=== PATIENT | male | born 1945 | race Caucasian/White ===

== ENCOUNTER 2016-03-22 00:44 | Inpatient (IN) | payer OTHER ==
--- NOTE | 2016-03-22 01:21 | PDOC ---
History of Present Illness - General Chief Complaint: Nausea/Vomiting Stated Complaint: NAUSEA/VOMITING History Source: Patient Exam Limitations: No Limitations - History of Present Illness Initial Comments: 03/22/16 03:32 see a couple of days ago and given zofran for nausea. Used the last one tonight. Now vomiting again. Lots of diarrhea too. Timing/Duration: 1 week Severity: moderate Modifying Factors: improves with: other (zofran makes it better.) Associated Symptoms: denies: denies symptoms Past History - Past Medical History Allergies/Adverse Reactions: Allergies Allergy/AdvReac Type Severity Reaction Status Date / Time No Known Allergies Allergy Verified 12/08/15 11:21 Home Medications: Ambulatory Orders Metformin HCl 500 mg PO BID 03/18/16 Oxycodone HCl/Acetaminophen [Percocet 5-325 mg Tablet] 2 tab PO Q6H PRN MDD 6 Pantoprazole Sodium [Protonix -] 40 mg PO DAILY #10 tablet.ec 03/19/16 Ondansetron [Zofran Odt -] 4 mg SL PRN PRN 03/22/16 Cardiac Disorders: Yes (AFIB) Diabetes: Yes HTN: Yes Hypercholesterolemia: Yes - Psycho/Social/Smoking Cessation Hx Anxiety: No Suicidal Ideation: No Smoking History: Never smoked Have you smoked in the past 12 months: No If you are a former smoker, when did you quit?: 30 yrs ago Hx Alcohol Use: No Drug/Substance Use Hx: No Substance Use Type: None Review of Systems - Review of Systems Able to Perform ROS?: Yes Is the patient limited Turkmen proficient: No Constitutional: Yes: See HPI HEENTM: No: Symptoms Reported Respiratory: No: Symptoms reported Cardiac (ROS): No: Symptoms Reported ABD/GI: Yes: See HPI : No: Symptoms Reported Musculoskeletal: No: Symptoms Reported Integumentary: No: Symptoms Reported Neurological: No: Symptoms reported All Other Systems: Reviewed and Negative *Physical Exam - Vital Signs Last Vital Signs Temp Pulse Resp BP Pulse Ox 98.1 F 50 L 16 186/84 100 03/22/16 00:49 03/22/16 00:49 03/22/16 00:49 03/22/16 00:49 03/22/16 00:49 - Physical Exam Comments: 03/22/16 03:34 actively vomiting..... dry heaves. General Appearance: Yes: Nourished. No: Apparent Distress HEENT: positive: Normal ENT Inspection Neck: positive: Supple, Other (no jvd) Respiratory/Chest: positive: Lungs Clear, Normal Breath Sounds Cardiovascular: positive: Regular Rhythm, Regular Rate, Bradycardia Gastrointestinal/Abdominal: positive: Normal Bowel Sounds, Flat, Soft. negative : Tender, Organomegaly, Pulsatile Mass, Increased Bowel Sounds, Decreased BS Rectal Exam: positive: deferred Lymphatic: negative: Adenopathy, Tenderness Musculoskeletal: positive: Normal Inspection. negative: CVA Tenderness Extremity: positive: Normal Capillary Refill, Normal Inspection, Pedal Edema, Other (mid calf pedal edema bilaterally) Integumentary: positive: Normal Color, Dry, Warm Neurologic: positive: horser up II-XII NML intact, Fully Oriented, Alert, Normal Mood/ Affect ED Treatment Course - LABORATORY CBC & Chemistry Diagram: 03/22/16 01:47 03/22/16 01:47 Medical Decision Making - Medical Decision Making 03/22/16 04:06 ekg shows a junctional bradycardia without any signs of ischemia, CXR shows atelectasis or possible RLL Infiltrate, but patient has no cough, Abdominal flat and upright films show no ileus or obstruction. 03/22/16 04:07 Patient remains nauseated and bradycardic. *DC/Admit/Observation/Transfer Diagnosis at time of Disposition: Gastroenteritis, Bradycardia, Acute gastroenteritis, History of atrial fibrillation, History of CHF (congestive heart failure), On warfarin at home - Discharge Dispostion Condition at time of disposition: Stable Admit: Yes - Referrals Referrals: Emigdio Loco MD [Primary Care Provider] -
[2016-03-22] MEDS ORDERED: SODIUM CHLORIDE 1,000 ML IV STA (01:31)
[2016-03-22] MEDS ORDERED: ONDANSETRON 4 MG/2 ML VIAL ONE ×3 (01:38→06:12)
[2016-03-22] MEDS: ONDANSETRON 4 MG/2 ML VIAL IVPUSH ONE ×2 (01:46→06:25)
[2016-03-22 02:29] LABS: WHITE BLOOD COUNT 11.9 K/mm3 (4.0-10.0)
[2016-03-22 02:30] LABS: MCH 28.9 pg (25.7-33.7); MCHC 33.2 g/dl (32.0-35.9); MEAN CELL VOLUME 86.9 fl (80-96); MEAN PLT VOLUME 9.6 fl (7.5-11.1); NEUTROPHILS 81.5 % (42.8-82.8); PLATELET COUNT 296 K/MM3 (134-434); RDW 15.4 % (11.9-15.9)
[2016-03-22 02:31] LABS: BASOPHIL 1.4 % (0-2.0)
[2016-03-22] MEDS ORDERED: METOCLOPRAMIDE HCL INJECTION 10 MG/2 ML VIAL IVPUSH ONE (02:36)
[2016-03-22 02:38] LABS: INR 1.98 (0.82-1.09); PROTHROMBIN TIME (PATIENT) 22.1 SEC (9.98-11.88)
[2016-03-22 02:48] LABS: ALBUMIN 4.5 g/dl (3.4-5.0); BILIRUBIN,TOTAL 0.7 mg/dL (0.2-1.0); CALCIUM 8.7 mg/dL (8.5-10.1); CREATININE 1.6 mg/dL (0.7-1.3); TOT PROT 7.6 g/dl (6.4-8.2)
[2016-03-22 02:50] LABS: TROPONIN I 0.1 ng/ml (0.00-0.05)
[2016-03-22] MEDS ORDERED: ONDANSETRON 4 MG/2 ML VIAL IVPUSH ONE (03:45)
[2016-03-22] MEDS ORDERED: SODIUM CHLORIDE 1,000 ML IV SCH (04:45)
[2016-03-22] MEDS ORDERED: WARFARIN NA 5 MG TABLET (UD) PO SCH (05:00)
[2016-03-22] MEDS: KCL 10 MEQ IVPB 100 ML IVPB SCH ×3 (05:40→08:17)
[2016-03-22] MEDS ORDERED: INSULIN SLIDING SCALE (NOVOLOG) 1 VIAL SQ SCH (06:00)
[2016-03-22 06:27] VITALS: BMI 36.8
--- NOTE | 2016-03-22 07:12 | HP ---
CHIEF COMPLAINT:nausea and vomiting PCP: Beronica Hood Maker: none as per patient HISTORY OF PRESENT ILLNESS: patient is a 70 y/o male with a past medical history of NIDDM, HTN, Afib (coumadin), and HLD. Patient reports nausea, vomiting, and diarrhea since 03/18/2016. Patient was evaluated in this emergency department on 03/19/2016 discharge with a diagnosis of viral gastroenteritis. Patient reports with nausea and vomiting is not resolved. patient denies any abdominal pain. patient reports the nausea and vomiting recent within the past 24 hours patient reports 1 episode of dizziness that resolved spontaneously. However, he denies any loss of consciousness. as a result he sought evaluation in the emergency department. 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 Smoking:none Alcohol:none Drugs: none Allergies No Known Allergies Allergy (Verified 12/08/15 11:21) HOME MEDICATIONS: Medication Instructions Recorded Metformin HCl 500 mg PO BID 03/18/16 Oxycodone HCl/Acetaminophen 2 tab PO Q6H PRN MDD 6 03/18/16 [Percocet 5-325 mg Tablet] Pantoprazole Sodium [Protonix -] 40 mg PO DAILY #10 tablet.ec 03/19/16 Ondansetron [Zofran Odt -] 4 mg SL PRN PRN 03/22/16 REVIEW OF SYSTEMS CONSTITUTIONAL: Absent: fever, chills, diaphoresis, generalized weakness, malaise, loss of appetite, weight change HEENT: Absent: rhinorrhea, nasal congestion, throat pain, throat swelling, difficulty swallowing, mouth swelling, ear pain, eye pain, visual changes CARDIOVASCULAR: Absent: chest pain, syncope, palpitations, irregular heart rate, lightheadedness , peripheral edema RESPIRATORY: Absent: cough, shortness of breath, dyspnea with exertion, orthopnea, wheezing, stridor, hemoptysis GASTROINTESTINAL: Present: nausea, vomiting, diarrhea Absent: abdominal pain, abdominal distension, , constipation, melena, hematochezia GENITOURINARY: Absent: dysuria, frequency, urgency, hesitancy, hematuria, flank pain, genital pain MUSCULOSKELETAL: Absent: myalgia, arthralgia, joint swelling, back pain, neck pain SKIN: Absent: rash, itching, pallor HEMATOLOGIC/IMMUNOLOGIC: Absent: easy bleeding, easy bruising, lymphadenopathy, frequent infections ENDOCRINE: Absent: unexplained weight gain, unexplained weight loss, heat intolerance, cold intolerance NEUROLOGIC: Absent: headache, focal weakness or paresthesias, dizziness, unsteady gait, seizure, mental status changes, bladder or bowel incontinence PSYCHIATRIC: Absent: anxiety, depression, suicidal or homicidal ideation, hallucinations. PHYSICAL EXAMINATION Vital Signs - 24 hr 03/22/16 06:27 Temperature 98.2 F Pulse Rate 72 Respiratory 19 Rate Blood Pressure 166/66 GENERAL: Awake, alert, and fully oriented, in no acute distress. HEAD: Normal with no signs of trauma. EYES: Pupils equal, round and reactive to light, extraocular movements intact, sclera anicteric, conjunctiva clear. No lid lag. EARS, NOSE, THROAT: Ears normal, nares patent, oropharynx clear without exudates. dry mucous membranes. NECK: Normal range of motion, supple without lymphadenopathy, JVD, or masses. LUNGS: Breath sounds equal, clear to auscultation bilaterally. No wheezes, and no crackles. No accessory muscle use. HEART: Regular rate and rhythm, normal S1 and S2 without murmur, rub or gallop. ABDOMEN: Soft, obese nontender, not distended, normoactive bowel sounds, no guarding, no rebound, no masses. No hepatomegaly or splenomegaly. MUSCULOSKELETAL: Normal range of motion at all joints. No bony deformities or tenderness. No CVA tenderness. UPPER EXTREMITIES: 2+ pulses, warm, well-perfused. No cyanosis. No clubbing. Cap refill <2 seconds. No peripheral edema. LOWER EXTREMITIES: 2+ pulses, warm, well-perfused. No calf tenderness. 1 pedal edema, with venous stasis changes (chronic as per patient) NEUROLOGICAL: Cranial nerves II-XII intact. Normal speech. Normal gait. PSYCHIATRIC: Cooperative. Good eye contact. Appropriate mood and affect. SKIN: Warm, dry, normal turgor, no rashes or lesions noted. Laboratory Results - last 24 hr 03/22/16 03/22/16 03/22/16 05:30 05:44 05:50 POC Glucometer 123 Lactic Acid Cancelled Troponin I 0.10 H Acetone, Qual 03/22/16 05:50 POC Glucometer Lactic Acid Troponin I Acetone, Qual Negative ASSESSMENT/PLAN: 1) Card: - pmh of afib, ekg reviewed slow hr conducted afib noted, elevated troponin x2, transcutaneous pacemaker pads placed on patient, pt reports he does not take digoxin. pt is asymptomatic, case discussed with Dr Allen (cardiology) will evaluate patient today - pt on coumadin, continue home 5mg tonight - elevated BNP, unknown baseline, pending ECHO - continue valsartan - continuous cardiac monitoring 2) renal - ROSARIO, likely secondary to hypovolemia, elevated anion gap, gentle IV hydration - repeat bmp in AM 3) endo - stop metformin, due to ROSARIO, fingersticks ACHS with regular insulin coverage - pending TSH f/e/n low sodium diabetic diet ppx coumadin protonix oob dispo: requires inpatient telemetry Visit type - Emergency Visit Emergency Visit: Yes ED Registration Date: 03/22/16 Care time: The patient presented to the Emergency Department on the above date and was hospitalized for further evaluation of their emergent condition. - New Patient This patient is new to me today: Yes Date on this admission: 03/22/16 - Critical Care Critical Care patient: Yes Total Critical Care Time (in minutes): 45 Critical Care Statement: The care of this patient involved high complexity decision making to prevent further life threatening deterioration of the patient 's condition and/or to evalute & treat vital organ system(s) failure or risk of failure.
[2016-03-22 08:42] LABS: PH,URINE 5.5 (4.5-8); URINE APPEARANCE Cloudy; URINE BILIRUBIN Negative (NEGATIVE); URINE GLUCOSE (UA) Negative (NEGATIVE); URINE KETONE Negative (NEGATIVE); URINE LEUK ESTERASE Negative (NEGATIVE); URINE NITRITE Negative (NEGATIVE); URINE PROTEIN Negative (NEGATIVE); URINE UROBILINOGEN 0.2 E.U/dl (0.2-1.0)
[2016-03-22 08:44] LABS: URINE BLOOD TRACE (NEGATIVE); URINE COLOR YELLOW
[2016-03-22 08:45] LABS: URINE BACTERIA FEW /hpf (NEGATIVE); URINE MUCUS FEW; URINE RBC 0-3 /hpf (0-3); URINE WBC 0-3 (3-5)
[2016-03-22] MEDS ORDERED: SODIUM CHLORIDE 0.45%/POT 1,000 ML IV SCH (08:45)
[2016-03-22] MEDS: PANTOPRAZOLE SODIUM 40 MG/100 ML PRE-DOCKED IVPB SCH (09:23)
[2016-03-22] MEDS: VALSARTAN 160 MG TABLET (UD) PO SCH (09:23)
[2016-03-22] MEDS ORDERED: PANTOPRAZOLE SODIUM 40 MG in SODIUM CHLORIDE 100 ML IVPB SCH (10:00)
--- NOTE | 2016-03-22 10:12 | EKG ---
Test Reason : Blood Pressure : / mmHG Vent. Rate : 043 BPM Atrial Rate : 241 BPM P-R Int : 000 ms QRS Dur : 122 ms QT Int : 500 ms P-R-T Axes : 000 013 -30 degrees QTc Int : 422 ms ATRIAL FIBRILLATION WITH SLOW VENTRICULAR RESPONSE WITH A COMPETING JUNCTIONAL PACEMAKER RIGHT BUNDLE BRANCH BLOCK ABNORMAL ECG NO PREVIOUS ECGS AVAILABLE Confirmed by SONIA TEJEDA, JAY ([id number]) on 03/22/2016 10:11:18 AM Referred By: HUNTER/KHRIS Overread By: JAY SCOTT MD
[2016-03-22 11:12] LABS: CALCIUM 8.5 mg/dl (8.4-10.2); CREATININE 1.3 mg/dl (0.6-1.3)
[2016-03-22] MEDS ORDERED: POTASSIUM CHLORIDE TABS 20 MEQ TABLET.ER (FP) PO ONE (11:33)
[2016-03-22] MEDS: INSULIN SLIDING SCALE (NOVOLOG) 1 VIAL SQ SCH ×3 (12:55→22:27)
[2016-03-22] MEDS: ATORVASTATIN CA 40 MG TABLET (FP) PO SCH (22:26)
[2016-03-22] MEDS: WARFARIN NA 5 MG TABLET (UD) PO SCH (22:26)
[2016-03-23] MEDS: INSULIN SLIDING SCALE (NOVOLOG) 1 VIAL SQ SCH ×4 (06:29→22:25)
[2016-03-23 07:44] LABS: BASOPHIL 0.3 % (0-2.0); EOSINOPHIL 5.7 % (0-4.5); MCH 30.1 pg (25.7-33.7); MCHC 33.9 g/dl (32.0-35.9); MEAN CELL VOLUME 88.6 fl (80-96); MEAN PLT VOLUME 9.5 fl (7.5-11.1); NEUTROPHILS 64.6 % (42.8-82.8); PLATELET COUNT 234 K/MM3 (134-434); RDW 15.6 % (11.9-15.9); WHITE BLOOD COUNT 9.7 K/mm3 (4.0-10.0)
[2016-03-23 08:26] LABS: ANION GAP 5 (8-16); CALCIUM 7.9 mg/dL (8.5-10.1); CREATININE 1.3 mg/dL (0.7-1.3); GLUCOSE,RANDOM 92 mg/dL (74-106)
[2016-03-23] MEDS: VALSARTAN 160 MG TABLET (UD) PO SCH (10:02)
[2016-03-23] MEDS: PANTOPRAZOLE SODIUM 40 MG/100 ML PRE-DOCKED IVPB SCH (10:03)
[2016-03-23 10:23] LABS: INR 2.26 (0.82-1.09); PROTHROMBIN TIME (PATIENT) 25.3 SEC (9.98-11.88)
--- NOTE | 2016-03-23 12:34 | CONSULT ---
Cardiology Consult (text) - Consultation Consultation Note: cc: n/v/d hpi: 70 m hx afib, htn, hld, dm, here with n/v/d. Pt with GI sxs for past few days, now improved. No cp, sob, palp, dizzy, loc, pnd, orthopnea, le edema. Dizziness is mentioned in charts but pt denies any such episodes. He is active with daily activities, watching grandchild w/o limiting sxs. 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 Afib monitored with pmd. pmh: per hpi psh: nc social: no tob fam: no premature cad, scd ros: per hpi; no cough, nasal congestion, rash, cali, vision changes, gib, hematuria meds: Medication Instructions Recorded Metformin HCl 500 mg PO BID 03/18/16 Oxycodone HCl/Acetaminophen 2 tab PO Q6H PRN MDD 6 03/18/16 [Percocet 5-325 mg Tablet] Pantoprazole Sodium [Protonix -] 40 mg PO DAILY #10 tablet.ec 03/19/16 Ondansetron [Zofran Odt -] 4 mg SL PRN PRN 03/22/16 pe: Vital Signs Period Temp Pulse Resp BP Sys/Luke Pulse Ox Last 24 Hr 97.8 F-98.4 F 48-64 18-20 118-140/50-93 94-96 nad no jvd irreg, yonathan, s1s2 no mrg cta bl nl eff aaox3 no le e/c/c abd nt nd pos bs no jaundice diaphoresis pos dp pt, no carotid bruit Laboratory Last Values WBC 9.7 K/mm3 (4.0-10.0) 03/23/16 05:35 RBC 4.01 M/mm3 (4.00-5.60) 03/23/16 05:35 Hgb 12.1 GM/dL (11.7-16.9) D 03/23/16 05:35 Hct 35.5 % (35.4-49) 03/23/16 05:35 MCV 88.6 fl (80-96) 03/23/16 05:35 MCHC 33.9 g/dl (32.0-35.9) 03/23/16 05:35 RDW 15.6 % (11.9-15.9) 03/23/16 05:35 Plt Count 234 K/MM3 (134-434) D 03/23/16 05:35 MPV 9.5 fl (7.5-11.1) 03/23/16 05:35 Neutrophils % 64.6 % (42.8-82.8) D 03/23/16 05:35 Lymphocytes % 21.8 % (8-40) D 03/23/16 05:35 Monocytes % 7.6 % (3.8-10.2) 03/23/16 05:35 Eosinophils % 5.7 % (0-4.5) H D 03/23/16 05:35 Basophils % 0.3 % (0-2.0) 03/23/16 05:35 INR 2.26 (0.82-1.09) H 03/23/16 05:35 Sodium 138 mmol/L (136-145) 03/23/16 05:35 Potassium 3.5 mmol/L (3.5-5.1) 03/23/16 05:35 Chloride 106 mmol/L (98-107) 03/23/16 05:35 Carbon Dioxide 27 mmol/L (21-32) 03/23/16 05:35 Anion Gap 5 (8-16) L 03/23/16 05:35 BUN 25 mg/dL (7-18) H D 03/23/16 05:35 Creatinine 1.3 mg/dL (0.7-1.3) 03/23/16 05:35 Creat Clearance w eGFR 43.07 (>60) 03/22/16 01:47 POC Glucometer 105 UNITS (()) 03/23/16 11:03 Random Glucose 92 mg/dL (74-106) D 03/23/16 05:35 Lactic Acid 1.105 mmol/L (0.4-2.0) 03/22/16 07:29 Calcium 7.9 mg/dL (8.5-10.1) L 03/23/16 05:35 Magnesium 2.3 mg/dL (1.8-2.4) 03/22/16 07:29 Total Bilirubin 0.7 mg/dL (0.2-1.0) D 03/22/16 01:47 AST 45 U/L (15-37) H D 03/22/16 01:47 ALT 52 U/L (12-78) D 03/22/16 01:47 Alkaline Phosphatase 90 U/L (45-117) 03/22/16 01:47 Creatine Kinase 362 IU/L (39-308) H 03/22/16 01:47 Creatine Kinase Index 1.9 % (0.0-5.0) 03/22/16 01:47 CK-MB (CK-2) 6.853 ng/ml (0.5-3.6) H 03/22/16 01:47 CK-MB (CK-2) Rel Index Cancelled 03/22/16 01:47 Troponin I 0.01 ng/ml (0.00-0.05) 03/22/16 07:29 B-Natriuretic Peptide 1090.06 pg/ml (5-125) H 03/22/16 01:47 Total Protein 7.6 g/dl (6.4-8.2) 03/22/16 01:47 Albumin 4.5 g/dl (3.4-5.0) 03/22/16 01:47 TSH 2.25 uIU/ml (0.358-3.74) 03/22/16 Unknown Urine Color Yellow 03/22/16 08:14 Urine Appearance Cloudy 03/22/16 08:14 Urine pH 5.5 (4.5-8) 03/22/16 08:14 Ur Specific [place] 1.015 (1.005-1.025) 03/22/16 08:14 Urine Protein Negative (NEGATIVE) 03/22/16 08:14 Urine Glucose (UA) Negative (NEGATIVE) 03/22/16 08:14 Urine Ketones Negative (NEGATIVE) 03/22/16 08:14 Urine Blood Trace (NEGATIVE) H 03/22/16 08:14 Urine Nitrite Negative (NEGATIVE) 03/22/16 08:14 Urine Bilirubin Negative (NEGATIVE) 03/22/16 08:14 Urine Urobilinogen 0.2 e.u/dl (0.2-1.0) 03/22/16 08:14 Ur Leukocyte Esterase Negative (NEGATIVE) 03/22/16 08:14 Urine RBC 0-3 /hpf (0-3) 03/22/16 08:14 Urine WBC 0-3 (3-5) 03/22/16 08:14 Ur Epithelial Cells Moderate /HPF 03/22/16 08:14 Amorphous Phosphates Few /hpf (NONE SEEN) 03/22/16 08:14 Urine Bacteria Few /hpf (NEGATIVE) 03/22/16 08:14 Urine Mucus Few 03/22/16 08:14 Acetone, Qual Negative (NEGATIVE) 03/22/16 05:50 ecg 03/22/16: afib, vr 43, nl qtc tele: afib, vr 30s-50s, no sig pauses echo 03/2016: nl lv/rv, maninder, mild-mod mr, mod tr, rvsp 41 cxr: clear lungs a/p: 70 m hx afib, htn, hld, dm, here with n/v/d. n/v/d: -gastroenteritis type symptoms, resolved per pt -no signs acs, troponin w/o significant elevation -plans per pmd afib, bradycardia: -on coumadin -echo here unremarkable -not on any rate control meds at home but having afib with slow ventricular response here. no significant pauses on tele. does not seem to be causing pt any symptoms (dizziness is mentioned in charts but pt denies any such episodes) . will send for ett today to assess chronotropic response. if ett shows adequate rise in HR with excercise then ok for dc from cardiac pov. If HR does not increase adequately with exercise pt will likely need pacemaker. -tsh wnl -avoid meds that cause bradycardia htn: -cont diovan hld: -cont statin
[2016-03-23 12:53] LABS: ALBUMIN 3.6 g/dl (3.4-5.0); ALK PHOS 72 U/L (45-117); BILIRUBIN,TOTAL 0.5 mg/dL (0.2-1.0); MAGNESIUM 2.5 mg/dL (1.8-2.4); SGOT/AST 29 U/L (15-37); SGPT/ALT 39 U/L (12-78); TOT PROT 6.2 g/dl (6.4-8.2)
[2016-03-23 12:55] LABS: CO2 27 mmol/L (21-32)
--- NOTE | 2016-03-23 14:04 | TRE ---
Protocol Name : SARA Max Work Load (METS*10) : 57 Time In Exercise Phase : 00:03:58 Max. Systolic BP : 160 mmHg Max Diastolic BP : 91 mmHg Max Heart Rate : 101 BPM Max Predicted Heart Rate : 151 BPM Attending Physician : AGUSTIN PRUITT Reason For Termination : Dyspnea Reason for Test : BRADCARDIA Stress Protocol : SARA Rest HR : 54 BPM PeakEx METs : 5.7 METS Arrhythmias : No Arrhythmias Recovery ECG Response (OLD) : Chest Pain : none Diagnosis : Baseline EKG showed AF with slow VR . At peak exercise there were [address] depressions c/w ischemia. at suboptimal HR due to chronotropic incopmpetence. Reconfirmed by AGUSTIN PRUITT MD ([id number]) on 03/23/2016 2:09:53 PM Also confirmed by AGUSTIN PRUITT MD ([id number]) on 03/23/2016 2:10:31 PM Also confirmed by AGUSTIN PRUITT MD ([id number]) on 03/23/2016 2:40:33 PM
[2016-03-23] MEDS: WARFARIN NA 5 MG TABLET (UD) PO SCH (17:45)
--- NOTE | 2016-03-23 18:24 | PN ---
Progress Note (short form) - Note Progress Note: Subjective: The patient was seen and examined at the bedside, he has just come back from stress test and denies any complaints. Current Medications Generic Name Dose Route Start Last Admin Trade Name Erica PRN Reason Stop Dose Admin Atorvastatin Calcium 40 mg 03/22/16 22:00 03/22/16 22:26 Lipitor - PO 40 mg HS CHINYERE Administration Insulin Aspart 1 vial 03/22/16 11:00 03/23/16 16:05 Novolog Vial Sliding Scale - SQ Not Given ACHS CHINYERE Protocol Pantoprazole Sodium 40 mg 03/22/16 10:00 03/23/16 10:03 Protonix 40mg Ivpb (Pre-Docked) IVPB 40 mg DAILY CHINYERE Administration Valsartan 320 mg 03/22/16 10:00 03/23/16 10:02 Diovan - PO 320 mg DAILY CHINYERE Administration Warfarin Sodium 5 mg 03/22/16 18:00 03/23/16 17:45 Coumadin - PO 5 mg DAILY@1800 CHINYERE Administration Objective: Vital Signs Period Temp Pulse Resp BP Sys/Luke Pulse Ox Last 24 Hr 97.8 F-98.4 F 48-64 18-20 126-140/53-93 94 Physical Exam: General: NAD, A&Ox3 Lungs: CTA bilaterally Heart: Bradycardia, S1S2 Abd: Soft, non-tender, non-distended. Normoactive bowel sounds Ext: Warm, well-perfused. 2+ DP/PT bilaterally Neuro: CN 2-12 intact CBCD WBC 9.7 K/mm3 (4.0-10.0) 03/23/16 05:35 RBC 4.01 M/mm3 (4.00-5.60) 03/23/16 05:35 Hgb 12.1 GM/dL (11.7-16.9) D 03/23/16 05:35 Hct 35.5 % (35.4-49) 03/23/16 05:35 MCV 88.6 fl (80-96) 03/23/16 05:35 MCHC 33.9 g/dl (32.0-35.9) 03/23/16 05:35 RDW 15.6 % (11.9-15.9) 03/23/16 05:35 Plt Count 234 K/MM3 (134-434) D 03/23/16 05:35 MPV 9.5 fl (7.5-11.1) 03/23/16 05:35 CMP Sodium 138 mmol/L (136-145) 03/23/16 05:35 Potassium 3.5 mmol/L (3.5-5.1) 03/23/16 05:35 Chloride 106 mmol/L (98-107) 03/23/16 05:35 Carbon Dioxide 27 mmol/L (21-32) 03/23/16 05:35 Anion Gap 5 (8-16) L 03/23/16 05:35 BUN 25 mg/dL (7-18) H D 03/23/16 05:35 Creatinine 1.3 mg/dL (0.7-1.3) 03/23/16 05:35 Creat Clearance w eGFR Y 03/23/16 05:35 Random Glucose 92 mg/dL (74-106) D 03/23/16 05:35 Calcium 7.9 mg/dL (8.5-10.1) L 03/23/16 05:35 Total Bilirubin 0.5 mg/dL (0.2-1.0) D 03/23/16 05:35 AST 29 U/L (15-37) D 03/23/16 05:35 ALT 39 U/L (12-78) D 03/23/16 05:35 Alkaline Phosphatase 72 U/L (45-117) 03/23/16 05:35 Total Protein 6.2 g/dl (6.4-8.2) L 03/23/16 05:35 Albumin 3.6 g/dl (3.4-5.0) 03/23/16 05:35 CARDIAC ENZYMES Creatine Kinase 362 IU/L (39-308) H 03/22/16 01:47 Troponin I 0.01 ng/ml (0.00-0.05) 03/22/16 07:29 Microbiology 03/22/16 08:00 Urine - Urine Clean Catch Urine Culture - Final NO GROWTH OBTAINED 03/22/16 05:30 Blood - Arterial Blood Culture - Preliminary NO GROWTH OBTAINED AFTER 24 HOURS, INCUBATION TO CONTINUE FOR 4 DAYS. 03/22/16 05:30 Blood - Arterial Blood Culture - Preliminary NO GROWTH OBTAINED AFTER 24 HOURS, INCUBATION TO CONTINUE FOR 4 DAYS. Assessment: This is a 70 year old male with PMHx of NIDDM, HTN, A.fib (on Coumadin), hyperlipidemia who presented to the ED with nausea, vomiting, diarrhea since 03/18/16. Plan: 1) Cardiology: A.fib with slow ventricular response - Continue Coumadin, INR therapeutic - ECHO with mild to mod aortic sclerosis. left atrium is moderately dilated, LVSF is normal. mild to moder MR, moderate TR - Stress test: at peak exercise there were 2mm ST depressions c/w ischemia. At suboptimal HR due to chronotropic incompetence - For nuclear stress in AM - Appreciate cardiology consult HTN - Continue Diovan Hyperlipidemia - Continue statin 2) : ROSARIO - Resolved 3) Endocrine: DM - BGM ACHS - ISS ACHS 4) F/E/N: - Monitor electrolytes - Sodium controlled diet 5) Prophylaxis: - On Coumadin, INR therapeutic 6) Dispo: - Requires continued inpatient care CODE STATUS: FULL CODE Visit type - Emergency Visit Emergency Visit: Yes ED Registration Date: 03/22/16 Care time: The patient presented to the Emergency Department on the above date and was hospitalized for further evaluation of their emergent condition. - New Patient This patient is new to me today: Yes Date on this admission: 03/23/16 - Critical Care Critical Care patient: No
[2016-03-23] MEDS: ATORVASTATIN CA 40 MG TABLET (FP) PO SCH (22:26)
[2016-03-24 05:49] VITALS: BP 140/65
[2016-03-24] MEDS: INSULIN SLIDING SCALE (NOVOLOG) 1 VIAL SQ SCH ×2 (06:35→13:40)
[2016-03-24 07:46] LABS: INR 2.43 (0.82-1.09); PROTHROMBIN TIME (PATIENT) 27.2 SEC (9.98-11.88)
[2016-03-24] MEDS ORDERED: DIPYRIDAMOLE STRESS TEST 50 MG in DEXTROSE 5%-WATER - 40 ML IVPB ONE (09:30)
[2016-03-24 11:17] VITALS: PULSE 42; TEMP 97.9
[2016-03-24] MEDS: VALSARTAN 160 MG TABLET (UD) PO SCH (13:40)
[2016-03-24] MEDS: PANTOPRAZOLE SODIUM 40 MG/100 ML PRE-DOCKED IVPB SCH (13:40)
--- NOTE | 2016-03-24 13:44 | PN ---
Progress Note (short form) - Note Progress Note: Subjective: The patient was seen and examined at the bedside, he has no complaints at this time Current Medications Generic Name Dose Route Start Last Admin Trade Name Ercia PRN Reason Stop Dose Admin Atorvastatin Calcium 40 mg 03/22/16 22:00 03/23/16 22:26 Lipitor - PO 40 mg HS CHINYERE Administration Insulin Aspart 1 vial 03/22/16 11:00 03/24/16 13:40 Novolog Vial Sliding Scale - SQ Not Given ACHS CHINYERE Protocol Pantoprazole Sodium 40 mg 03/22/16 10:00 03/24/16 13:40 Protonix 40mg Ivpb (Pre-Docked) IVPB 40 mg DAILY CHINYERE Administration Valsartan 320 mg 03/22/16 10:00 03/24/16 13:40 Diovan - PO 320 mg DAILY CHINYERE Administration Warfarin Sodium 5 mg 03/22/16 18:00 03/23/16 17:45 Coumadin - PO 5 mg DAILY@1800 CHINYERE Administration Objective: Vital Signs Period Temp Pulse Resp BP Sys/Luke Pulse Ox Last 24 Hr 97.3 F-98.0 F 42-65 18-20 126-143/60-80 95-96 Physical Exam: General: NAD, A&Ox3 Lungs: CTA bilaterally Heart: Bradycardia, S1S2 Abd: Soft, non-tender, non-distended. Normoactive bowel sounds Ext: Warm, well-perfused. 2+ DP/PT bilaterally Neuro: CN 2-12 intact CBCD WBC 9.7 K/mm3 (4.0-10.0) 03/23/16 05:35 RBC 4.01 M/mm3 (4.00-5.60) 03/23/16 05:35 Hgb 12.1 GM/dL (11.7-16.9) D 03/23/16 05:35 Hct 35.5 % (35.4-49) 03/23/16 05:35 MCV 88.6 fl (80-96) 03/23/16 05:35 MCHC 33.9 g/dl (32.0-35.9) 03/23/16 05:35 RDW 15.6 % (11.9-15.9) 03/23/16 05:35 Plt Count 234 K/MM3 (134-434) D 03/23/16 05:35 MPV 9.5 fl (7.5-11.1) 03/23/16 05:35 CMP Sodium 138 mmol/L (136-145) 03/23/16 05:35 Potassium 3.5 mmol/L (3.5-5.1) 03/23/16 05:35 Chloride 106 mmol/L (98-107) 03/23/16 05:35 Carbon Dioxide 27 mmol/L (21-32) 03/23/16 05:35 Anion Gap 5 (8-16) L 03/23/16 05:35 BUN 25 mg/dL (7-18) H D 03/23/16 05:35 Creatinine 1.3 mg/dL (0.7-1.3) 03/23/16 05:35 Creat Clearance w eGFR Y 03/23/16 05:35 Random Glucose 92 mg/dL (74-106) D 03/23/16 05:35 Calcium 7.9 mg/dL (8.5-10.1) L 03/23/16 05:35 Total Bilirubin 0.5 mg/dL (0.2-1.0) D 03/23/16 05:35 AST 29 U/L (15-37) D 03/23/16 05:35 ALT 39 U/L (12-78) D 03/23/16 05:35 Alkaline Phosphatase 72 U/L (45-117) 03/23/16 05:35 Total Protein 6.2 g/dl (6.4-8.2) L 03/23/16 05:35 Albumin 3.6 g/dl (3.4-5.0) 03/23/16 05:35 CARDIAC ENZYMES Creatine Kinase 362 IU/L (39-308) H 03/22/16 01:47 Troponin I 0.01 ng/ml (0.00-0.05) 03/22/16 07:29 Microbiology 03/22/16 05:30 Blood - Arterial Blood Culture - Preliminary NO GROWTH OBTAINED AFTER 48 HOURS, INCUBATION TO CONTINUE FOR 3 DAYS. 03/22/16 05:30 Blood - Arterial Blood Culture - Preliminary NO GROWTH OBTAINED AFTER 48 HOURS, INCUBATION TO CONTINUE FOR 3 DAYS. 03/22/16 08:00 Urine - Urine Clean Catch Urine Culture - Final NO GROWTH OBTAINED Assessment: This is a 70 year old male with PMHx of NIDDM, HTN, A.fib (on Coumadin), hyperlipidemia who presented to the ED with nausea, vomiting, diarrhea since 03/18/16. Plan: 1) Cardiology: A.fib with slow ventricular response - Continue Coumadin, INR therapeutic - ECHO with mild to mod aortic sclerosis. left atrium is moderately dilated, LVSF is normal. mild to moder MR, moderate TR - Stress test: at peak exercise there were 2mm ST depressions c/w ischemia. At suboptimal HR due to chronotropic incompetence - F/u nuclear stress test - Appreciate cardiology consult HTN - Continue Diovan Hyperlipidemia - Continue statin 2) : ROSARIO - Resolved 3) Endocrine: DM - BGM ACHS - ISS ACHS 4) F/E/N: - Monitor electrolytes - Sodium controlled diet 5) Prophylaxis: - On Coumadin, INR therapeutic 6) Dispo: - Requires continued inpatient care CODE STATUS: FULL CODE Visit type - Emergency Visit Emergency Visit: Yes ED Registration Date: 03/22/16 Care time: The patient presented to the Emergency Department on the above date and was hospitalized for further evaluation of their emergent condition. - New Patient This patient is new to me today: No - Critical Care Critical Care patient: No
--- NOTE | 2016-03-24 14:26 | PN ---
Progress Note (short form) - Note Progress Note: s: no cp sob palps dizzy o: Vital Signs Period Temp Pulse Resp BP Sys/Luke Pulse Ox Last 24 Hr 97.3 F-98.0 F 42-65 18-20 126-143/60-80 95-96 nad no jvd irreg, yonathan, s1s2 no mrg cta bl nl eff aaox3 no le e/c/c abd nt nd pos bs no jaundice diaphoresis Current Medications Generic Name Dose Route Start Last Admin Trade Name Erica PRN Reason Stop Dose Admin Atorvastatin Calcium 40 mg 03/22/16 22:00 03/23/16 22:26 Lipitor - PO 40 mg HS CHINYERE Administration Insulin Aspart 1 vial 03/22/16 11:00 03/24/16 13:40 Novolog Vial Sliding Scale - SQ Not Given ACHS CHINYERE Protocol Pantoprazole Sodium 40 mg 03/22/16 10:00 03/24/16 13:40 Protonix 40mg Ivpb (Pre-Docked) IVPB 40 mg DAILY CHINYERE Administration Valsartan 320 mg 03/22/16 10:00 03/24/16 13:40 Diovan - PO 320 mg DAILY CHINYERE Administration Warfarin Sodium 5 mg 03/22/16 18:00 03/23/16 17:45 Coumadin - PO 5 mg DAILY@1800 CHINYERE Administration CBC, BMP 03/23/16 05:35 03/23/16 05:35 ecg 03/22/16: afib, vr 43, nl qtc tele: afib, vr 40s-60s, no sig pauses echo 03/2016: nl lv/rv, maninder, mild-mod mr, mod tr, rvsp 41 cxr: clear lungs a/p: 70 m hx afib, htn, hld, dm, here with n/v/d. n/v/d: -gastroenteritis type symptoms, resolved per pt -no signs acs, troponin w/o significant elevation -plans per pmd afib, bradycardia: -on coumadin -echo here unremarkable -not on any rate control meds at home but having afib with slow ventricular response here. no significant pauses on tele. does not seem to be causing pt any symptoms (dizziness is mentioned in charts but pt denies any such episodes) . he was sent for ett here to evaluate chronotropic response and his HR argenis adequately to 101 with exercise. Thus no further testing/treatment needed for bradycardia at this time. -ett showed ischemic ecg changes so sent for mibi today which was normal -tsh wnl -avoid meds that cause bradycardia htn: -cont diovan hld: -cont statin cardiac josue stable for dc, should f/u with cardio as outpt
--- NOTE | 2016-03-24 15:31 | DS ---
Physical Examination Vital Signs: Vital Signs Temperature 97.9 F 03/24/16 10:00 Pulse Rate 42 L 03/24/16 10:00 Respiratory Rate 18 03/24/16 10:00 Blood Pressure 140/65 03/24/16 10:00 O2 Sat by Pulse Oximetry (%) 95 03/24/16 09:00 Findings/Remarks: Physical Exam: General: NAD, A&Ox3 Lungs: CTA bilaterally Heart: Bradycardia, S1S2 Abd: Soft, non-tender, non-distended. Normoactive bowel sounds Ext: Warm, well-perfused. 2+ DP/PT bilaterally Neuro: CN 2-12 intact Labs: CBC, BMP 03/23/16 05:35 03/23/16 05:35 Discharge Summary Reason For Visit: NAUSEA/VOMITING Current Active Problems Acute gastroenteritis (Acute) Bradycardia (Acute) Gastroenteritis (Acute) History of CHF (congestive heart failure) (Acute) History of atrial fibrillation (Acute) On warfarin at home (Acute) Hospital Course: This is a 70 year old male with PMHx of NIDDM, HTN, A.fib (on Coumadin), hyperlipidemia who presented to the ED with nausea, vomiting, diarrhea since . Plan: 1) Cardiology: A.fib with slow ventricular response - Continue Coumadin, INR therapeutic - ECHO with mild to mod aortic sclerosis. left atrium is moderately dilated, LVSF is normal. mild to moder MR, moderate TR - Stress test: at peak exercise there were 2mm ST depressions c/w ischemia. At suboptimal HR due to chronotropic incompetence - Nuclear stress test with normal persantine stress ekg, LVEF 55% - Appreciate cardiology consult HTN - Continue Diovan Hyperlipidemia - Continue statin 2) : ROSARIO - Resolved 3) Endocrine: DM - Resume Metformin The patient was discharged and instructed to follow-up with pcp, cardiology within 1 week. Please return to the ED with new, persistent, or worsening symptoms. This discharge took 35 minutes to complete. Condition: Improved - Instructions Diet, Activity, Other Instructions: Please return to the ED with new, persistent, or worsening symptoms. Please follow-up with providers as indicated. Referrals: Emigdio Loco MD [Primary Care Provider] - 1 Week Robbie Huang MD [Staff Physician] - (Please follow-up with cardiology within 1 week for further management of your bradycardia) Disposition: HOME - Home Medications Comprehensive Discharge Medication List: Ambulatory Orders RX: Metformin HCl 500 mg PO BID 03/18/16 RX: Oxycodone HCl/Acetaminophen [Percocet 5-325 mg Tablet] 2 tab PO Q6H PRN MDD 6 03/18/16 RX: Pantoprazole Sodium [Protonix -] 40 mg PO DAILY #10 tablet.ec 03/19/16 RX: Ondansetron [Zofran Odt -] 4 mg SL PRN PRN 03/22/16 RX: Valsartan [Diovan] 320 mg PO DAILY #60 tablet 03/24/16 This patient is new to me today: No Emergency Visit: Yes ED Registration Date: 03/22/16 Care time: The patient presented to the Emergency Department on the above date and was hospitalized for further evaluation of their emergent condition. Critical Care patient: No - Discharge Referral Referred to [facility] Yes Physician Referral: Emigdio Loco MD (Int Med)
--- NOTE | 2016-03-30 23:47 | EKG ---
Test Reason : Blood Pressure : / mmHG Vent. Rate : 041 BPM Atrial Rate : 043 BPM P-R Int : 000 ms QRS Dur : 114 ms QT Int : 528 ms P-R-T Axes : 000 -34 -24 degrees QTc Int : 435 ms ATRIAL FIBRILLATION WITH SLOW VENTRICULAR RESPONSE LEFT AXIS DEVIATION NONSPECIFIC ST AND T WAVE ABNORMALITY ABNORMAL ECG NO PREVIOUS ECGS AVAILABLE Confirmed by VERONICA THOMPSON MD ([id number]) on 03/30/2016 11:46:55 PM Referred By: Confirmed By:VERONICA THOMPSON MD
== END 2016-03-24 17:22 | disposition home or self-care (01) | DRG 551 ==
LOC: FER 00:44 → OBSVTOIN 04:46 → FM/S 04:46 → J4W 18:45
PROVIDERS: ADMIT Internal Medicine; ATTEND Registered Nurse
DX: K52.9 Noninfective gastroenteritis and colitis, unspecified (principal); N17.9 Acute kidney failure, unspecified; I48.91 Unspecified atrial fibrillation; I10 Essential (primary) hypertension; E78.5 Hyperlipidemia, unspecified; E11.9 Type 2 diabetes mellitus without complications; R00.1 Bradycardia, unspecified
CPT/HCPCS: 36415; 71010-TC; 74020-TC; 78452-TC; 80048; 80053; 81003; 81015; 82009; 82550; 82553; 83605; 83735; 83880; 84443; 84484; 85025; 85610; 87040; 87086; 93005; 93010; 93017; 93018; 93306-TC; 99284-25; A9502; C1887; J1245; J3480

== ENCOUNTER 2017-08-09 19:40 | Emergency (ER) | payer OTHER ==
[2017-08-09 19:47] VITALS: BP 136/44; PULSE 45; TEMP 97.9; BMI 34.9
--- NOTE | 2017-08-09 21:39 | PDOC ---
History of Present Illness - General History Source: Patient Exam Limitations: No Limitations - History of Present Illness Initial Comments: 08/09/17 22:09 The patient is a 72 year old male with a significant PMH of afib, hypertension , diabetes, hyperlipidemia, arthritis, and gout (lower extremities) who presents to the emergency department s/p fall earlier today. The patient reports that he was at home earlier today when he fell. The patient states that he was home in his kitchen and slipped barefoot on some water that had spilled on the floor. The patient reports that his left leg went toward the back and his right leg went to the front. The patient states that he flexed his big toe on his left foot. The patient describes his pain as severe. The patient reports associated swelling in his left foot. He also reports pain when walking on the foot. He reports associated left shoulder pain s/p fall. The patient also reports 1 week of bilateral hand swelling and pain for 1 week. He reports that he has been unable to use his left hand. The patient states that he has been on medication for Gout in his foot.. The patient denies any other symptoms. He denies any chest pain, shortness of breath, headache and dizziness. He denies fever, chills, nausea, vomit, diarrhea, constipation or urinary symptoms. The patient denies any other complaints. Allergies: NDKA Past surgical history: none reported PCP: Dr. Loco <Arlene Brunner - Last Filed: 08/09/17 22:13> <Palmira Adamson - Last Filed: 08/10/17 02:23> - General Chief Complaint: Injury Stated Complaint: S/P FALL Time Seen by Provider: 08/09/17 19:50 Past History <Arlene Brunner - Last Filed: 08/09/17 22:13> - Past Medical History Cardiac Disorders: Yes (AFIB) COPD: No Diabetes: Yes HTN: Yes Hypercholesterolemia: Yes - Suicide/Smoking/Psychosocial Hx Smoking History: Unknown if ever smoked Have you smoked in the past 12 months: No Number of Cigarettes Smoked Daily: 0 If you are a former smoker, when did you quit?: 30 yrs ago Information on smoking cessation initiated: No Hx Alcohol Use: No Drug/Substance Use Hx: No Substance Use Type: None Hx Substance Use Treatment: No <Palmira Adamosn - Last Filed: 08/10/17 02:23> - Past Medical History Allergies/Adverse Reactions: Allergies Allergy/AdvReac Type Severity Reaction Status Date / Time No Known Allergies Allergy Verified 12/08/15 11:21 Home Medications: Ambulatory Orders Pantoprazole Sodium [Protonix -] 40 mg PO DAILY #10 tablet.ec 03/19/16 Valsartan [Diovan] 320 mg PO DAILY #60 tablet 03/24/16 Cyclobenzaprine HCl [Flexeril 10 mg] 10 mg PO BID PRN #10 tablet 08/09/17 Review of Systems - Review of Systems Able to Perform ROS?: Yes Comments:: 08/09/17 22:09 GENERAL/CONSTITUTIONAL: No fever or chills. No weakness. HEAD, EYES, EARS, NOSE AND THROAT: No change in vision. No ear pain or discharge. No sore throat. CARDIOVASCULAR: No chest pain or shortness of breath. RESPIRATORY: No cough, wheezing, or hemoptysis. GASTROINTESTINAL: No nausea, vomiting, diarrhea or constipation. GENITOURINARY: No dysuria, frequency, or change in urination. MUSCULOSKELETAL:(+)left shoulder pain, bilateral hand swelling and pain, left foot swelling and pain s/p fall. SKIN: No rash NEUROLOGIC: No headache, vertigo, loss of consciousness, or change in strength/ sensation. ENDOCRINE: No increased thirst. No abnormal weight change. HEMATOLOGIC/LYMPHATIC: No anemia, easy bleeding, or history of blood clots. ALLERGIC/IMMUNOLOGIC: No hives or skin allergy. <Arlene Brunner - Last Filed: 08/09/17 22:13> *Physical Exam - Vital Signs Last Vital Signs Temp Pulse Resp BP Pulse Ox 97.9 F 45 L 14 136/44 98 08/09/17 19:43 08/09/17 19:43 08/09/17 19:43 08/09/17 19:43 08/09/17 19:43 - Physical Exam Comments: 08/09/17 22:09 GENERAL: Awake, alert, and fully oriented, in no acute distress HEAD: No signs of trauma EYES: PERRLA, EOMI, sclera anicteric, conjunctiva clear ENT: Auricles normal inspection, hearing grossly normal, nares patent, oropharynx clear without exudates. Moist mucosa NECK: (+) Non tender to palpation . no pain with flexion or tension. Mild tenderness to left trapezius muscle. Normal ROM, supple, no lymphadenopathy, JVD , or masses LUNGS: Breath sounds equal, clear to auscultation bilaterally. No wheezes, and no crackles HEART: Regular rate and irregular regular rhythm, normal S1 and S2, no murmurs , rubs or gallops. Chest wall non tender with no deformity. ABDOMEN: Soft, nontender, normoactive bowel sounds. No guarding, no rebound. No masses EXTREMITIES: (+) upper extremities notable for edema of bilateral hands ( left greater than right) with mild erythema and tenderness of 3rd and 4th MCP joint and proximal fingers. Left lower extremity notable for moderate tenderness and mild edema of 1st MTP joint and great toe with deformity. Ecchymosis noted. Minimal tenderness of lateral malleolus of ankle.. No clubbing or cyanosis. No cords. NEUROLOGICAL: Cranial nerves II through XII grossly intact. Normal speech, normal gait SKIN: Warm, Dry, normal turgor, no rashes or lesions noted. <Arlene Brunner - Last Filed: 08/09/17 22:13> - Vital Signs Last Vital Signs Temp Pulse Resp BP Pulse Ox 97.9 F 45 L 14 136/44 98 08/09/17 19:43 08/09/17 19:43 08/09/17 19:43 08/09/17 19:43 08/09/17 19:43 <Palmira Adamson - Last Filed: 08/10/17 02:23> Progress Note - Progress Note Progress Note: Documentation has been prepared under my direction and personally reviewed by me in its entirety. I attest that this documented accurately reflects all work, treatment, procedures and medical decision making performed by me. <Palmira Adamson - Last Filed: 08/10/17 02:23> Medical Decision Making - Medical Decision Making As noted above, this 72-year-old man with a history of HTN/HLD/DM/gout presents with history of slipping and falling on wet floor in his home just prior to presentation. Patient plantar flexed his left great toe and forefoot when he fell and impacted left shoulder area but did not have any neck/head injury or loss of consciousness. His main complaint is related to left foot pain with weightbearing. Also, patient has had several days of bilateral hand swelling and pain. The right symptoms have largely resolved spontaneously but the left hand is still edematous, erythematous and painful. Of note, patient has a significant history of gout although he has never had any acute episodes involving any area of than lower extremity. Exam as noted; patient has some tenderness and edema of his left forefoot but no deformity or ecchymosis. There is edema of bilateral hands left greater than right as well as mild erythema/tenderness of the left hand. No evidence of skin break/lymphangitic streaking or other evidence of infection of the left hand. Left foot/ankle x-ray negative for fracture/dislocation. Clinical presentation consistent with left foot sprain; it also appears that he has an acute gout episode involving bilateral hands (especially left hand) Patient should elevate/ice and use hard soled shoe on the left foot. The patient generally takes in an additional colchicine tablet (for a total of 3 tabs) when he has acute episode. Patient should contact Dr. Loco regarding the episode <Palmira Adamson - Last Filed: 08/10/17 02:23> *DC/Admit/Observation/Transfer - Attestations Scribe Attestion: 08/09/17 22:10 Documentation prepared by Arlene Brunner, acting as medical representative for Palmira Adamson MD. <Arlene Brunner - Last Filed: 08/09/17 22:13> <Palmira Adamson - Last Filed: 08/10/17 02:23> Diagnosis at time of Disposition: Sprain of left foot Qualifiers: Encounter type: initial encounter Qualified Code(s): S93.602A - Unspecified sprain of left foot, initial encounter Acute gout Qualifiers: Gout site: hand Gout etiology: unspecified cause Laterality: left Qualified Code(s): M10.9 - Gout, unspecified - Discharge Dispostion Disposition: HOME Condition at time of disposition: Stable - Prescriptions Prescriptions: Cyclobenzaprine HCl [Flexeril 10 mg] 10 mg PO BID PRN #10 tablet PRN Reason: Muscle Spasms - Patient Instructions Printed Discharge Instructions: DI for Foot Sprain Additional Instructions: Postop shoe on left foot for ambulation for the next 5 days Elevate/ice to left foot for the next 2 days Drink plenty of water Take extra colchicine for acute gout as usual Flexeril 10 mg up to twice a day as needed for muscle spasm Contact Dr. Loco tomorrow regarding further plan regarding gout Return to ER if you have more severe pain/swelling
== END 2017-08-09 23:12 | disposition home or self-care (01) ==
LOC: FER 19:40
DX: S93.602A Unspecified sprain of left foot, initial encounter (principal); W01.0XXA Fall on same level from slipping, tripping and stumbling without subsequent striking against object, initial encounter; Y93.89 Activity, other specified; Y92.9 Unspecified place or not applicable; M10.9 Gout, unspecified; I10 Essential (primary) hypertension; E78.5 Hyperlipidemia, unspecified; E11.9 Type 2 diabetes mellitus without complications
CPT/HCPCS: 73610-TC-LT-FY; 73630-TC-LT; 99282-25

== ENCOUNTER 2017-11-27 14:37 | Inpatient (IN) | payer OTHER ==
--- NOTE | 2017-11-27 15:37 | PDOC ---
History of Present Illness - General Chief Complaint: Edema Stated Complaint: PAIN LEGS Time Seen by Provider: 11/27/17 15:37 - History of Present Illness Initial Comments: 11/27/17 17:04 The patient is a 72 year old male with a history of HTN, HLD, DM, Obesity who presents for evaluation of 1 week of generalized weakness. The patient is accompanied by family who assist in providing the history. They note that the patient has been complaining of generalized weakness and chills over the past 1 week. He has noted worsening edema and pain to his lower extremities with associated nausea, vomiting and diarrhea. He noted a red color to his urine today prompting his presentation to the ED for further evaluation. He otherwise denies headache, SOB, chest pain, abdominal pain, or numbness or tingling. Past History - Past Medical History Allergies/Adverse Reactions: Allergies Allergy/AdvReac Type Severity Reaction Status Date / Time No Known Allergies Allergy Verified 12/08/15 11:21 Home Medications: Ambulatory Orders Pantoprazole Sodium [Protonix -] 40 mg PO DAILY #10 tablet.ec 03/19/16 Valsartan [Diovan] 320 mg PO DAILY #60 tablet 03/24/16 Cyclobenzaprine HCl [Flexeril 10 mg] 10 mg PO BID PRN #10 tablet 08/09/17 Cardiac Disorders: Yes (AFIB) COPD: No Diabetes: Yes HTN: Yes Hypercholesterolemia: Yes - Immunization History Immunization Up to Date: Yes - Suicide/Smoking/Psychosocial Hx Smoking History: Unknown if ever smoked Have you smoked in the past 12 months: No Number of Cigarettes Smoked Daily: 0 If you are a former smoker, when did you quit?: 30 yrs ago Hx Alcohol Use: No Drug/Substance Use Hx: No Substance Use Type: None Hx Substance Use Treatment: No Review of Systems - Review of Systems Comments:: 11/27/17 17:08 Constitutional: Fatigue, chills. No fevers, malaise HEENT: No Rhinorrhea, nasal congestion, visual changes Cardiovascular: No chest pain, syncope, palpitations, lightheadedness Respiratory: No Cough, SOB, Hemoptysis, Gastrointestinal: Nausea, vomiting, diarrhea. No Abdominal pain, Constipation, Melena Genitourinary: Hematuria. No Dysuria, Frequency, Urgency, Hesitancy, Flank pain Musculoskeletal: No Myalgia, arthralgia Skin: No rashes, itching, bruising, pallor Neurologic: No Headache, Dizziness, Numbness, Weakness, or Tingling Psychiatric: No Hallucinations. No SI or HI *Physical Exam - Vital Signs Last Vital Signs Temp Pulse Resp BP Pulse Ox 99.6 F 95 H 19 145/52 95 11/27/17 15:00 11/27/17 15:00 11/27/17 15:00 11/27/17 15:00 11/27/17 15:00 - Physical Exam Comments: 11/27/17 17:09 General Appearance: Nourished. No Apparent Distress HEENT: No Pharyngeal Erythema, Tonsillar Exudate, Tonsillar Erythema Neck: No Cervical Lymphadenopathy Respiratory/Chest: Lungs Clear, Normal Breath Sounds. No Crackles, Rales, Rhonchi, Wheezing Cardiovascular: Regular Rhythm, Regular Rate. No Murmur, Gallops, Rubs Gastrointestinal/Abdominal: Normal Bowel Sounds, Soft. Mild diffuse discomfort to palpation on exam. No Guarding, Rebound, Musculoskeletal: No CVA Tenderness Extremity: 2+ pitting edema in the lower extremities bilaterally with erythema and warm to the ankles bilaterally. Normal Capillary Refill Integumentary: Normal Color, Dry, Warm Neurologic: Fully Oriented, Alert, Normal Mood/Affect, Normal Response, ED Treatment Course - LABORATORY CBC & Chemistry Diagram: 11/27/17 15:50 11/27/17 15:50 Medical Decision Making - Medical Decision Making 11/27/17 17:20 The patient is a 72 year old male with a history of HTN, HLD, DM, Obesity who presents for evaluation of 1 week of generalized weakness. Differential includes but is not limited to: Sepsis, Cellulitis, UTI, Infectious, Metabolic derangement. Given the patient's history and physical exam, we will obtain a cbc, cmp, troponin, lactate, vbg, chest plain film, ekg, blood cultures, ua, urine culture to evaluate further. We will treat with iv fluids, vanc and zosyn here in the ED and continue to monitor and reassess while here in the ED. The patient will likely require admission for further management. 11/27/17 23:20 CBC demonstrates elevated wbc to 20. CMP demonstrates elevate creatinine. lactate is elevated to 3.1. Troponin is elevated to 0.15. UA is unremarkable. Chest plain film is unremarkable. CT abdomen/pelvis is unremarkable as read by our radiologist. The patient will require admission for further management. We discussed the case with the admitting team who accepted the patient for admission. *DC/Admit/Observation/Transfer Diagnosis at time of Disposition: Sepsis Qualifiers: Sepsis type: sepsis due to unspecified organism Qualified Code(s): A41.9 - Sepsis, unspecified organism - Discharge Dispostion Condition at time of disposition: Stable Decision to Admit order: Yes - Referrals Referrals: Emigdio Loco MD [Primary Care Provider] - - Patient Instructions - Post Discharge Activity
[2017-11-27] MEDS ORDERED: SODIUM CHLORIDE 1,000 ML IV STA ×2 (16:04→17:22)
[2017-11-27 16:37] LABS: VENOUS PH 7.4 (7.32-7.42)
[2017-11-27 16:38] LABS: VENOUS PC02 48.5 mmHg (38-52); VENOUS PO2 32.8 mmHg (28-48)
[2017-11-27 16:47] LABS: URINE APPEARANCE CLOUDY; URINE BILIRUBIN NEGATIVE (<2.0 mg/dL); URINE COLOR AMBER; URINE GLUCOSE (UA) NEGATIVE (NEGATIVE); URINE KETONE NEGATIVE (NEGATIVE); URINE LEUK ESTERASE NEGATIVE (NEGATIVE); URINE NITRITE NEGATIVE (NEGATIVE); URINE UROBILINOGEN 4.0 E.U/dl mg/dL (0.2-1.0)
[2017-11-27 16:49] LABS: INR 2.19 (0.83-1.09); PROTHROMBIN TIME (PATIENT) 24.7 SEC (9.7-13.0)
[2017-11-27 16:49] LABS: URINE PROTEIN 1+ (NEGATIVE)
[2017-11-27 16:50] LABS: BASO % 0.9 % (0-2.0); HEMATOCRIT 36.6 % (35.4-49); HEMOGLOBIN 12.3 GM/dL (11.7-16.9); LYMPH % 2.4 % (8-40); MCH 30.3 pg (25.7-33.7); MCHC 33.5 g/dl (32.0-35.9); MEAN CELL VOLUME 90.6 fl (80-96); MEAN PLT VOLUME 9.9 fl (7.5-11.1); MONO % 6.3 % (3.8-10.2); NEUT % 90.4 % (42.8-82.8); PLATELET COUNT 288 K/MM3 (134-434); RBC 4.05 M/mm3 (4.00-5.60); RDW 16.5 % (11.9-15.9); WHITE BLOOD COUNT 20.5 K/mm3 (4.0-10.0)
[2017-11-27 16:51] LABS: ACTIVATED PTT 33.4 SECONDS (25.2-36.5)
[2017-11-27 16:52] LABS: EPI CELLS RARE /HPF (FEW); URINE HYALINE CAST 1 /lpf; URINE MUCUS RARE; YEAST FEW
[2017-11-27 16:59] LABS: ALBUMIN 3.3 g/dl (3.4-5.0); ALK PHOS 86 U/L (45-117); ANION GAP 11 MMOL/L (8-16); BILIRUBIN,TOTAL 4.8 mg/dL (0.2-1.0); BLOOD UREA NITROGEN 42 mg/dL (7-18); CALCIUM 8.9 mg/dL (8.5-10.1); CHLORIDE 99 mmol/L (98-107); CO2 28 mmol/L (21-32); CREATININE 1.6 mg/dL (0.7-1.3); GLUCOSE,RANDOM 166 mg/dL (74-106); POTASSIUM 3.8 mmol/L (3.5-5.1); SGOT/AST 36 U/L (15-37); SGPT/ALT 29 U/L (12-78); SODIUM 138 mmol/L (136-145); TOT PROT 6.8 g/dl (6.4-8.2)
[2017-11-27] MEDS ORDERED: PIPERACILLIN/TAZOB 4.5 GM 4.5 GM in DEXTROSE 5%-WATER 100 ML IVPB ONE (17:00)
[2017-11-27] MEDS ORDERED: VANCOMYCIN 1,500 MG in DEXTROSE 5%-WATER - 500 ML IVPB ONE (17:00)
[2017-11-27] MEDS ORDERED: PIPERACILLIN/TAZOB 4.5 GM 4.5 GM/100 ML BAG IVPB ONE (17:11)
[2017-11-27 17:23] LABS: PLATELET ESTIMATE ADEQUATE
--- NOTE | 2017-11-27 17:50 | PDOC ---
Attending Attestation - Resident Resident Name: Jacinto Neves - ED Attending Attestation I have performed the following: I have examined & evaluated the patient, The case was reviewed & discussed with the resident, I agree w/resident's findings & plan, Exceptions are as noted - HPI HPI: 11/27/17 17:48 obese 72 yo male p/e b/l foot pain,fever,chills,generalized weakness and LE edema 11/27/17 17:51 - Physicial Exam PE: 11/27/17 17:53 obese 72 yo male with b/l erythema pain both shins and severe foot pain head ncat eyes eomi ,manoj neck supple lungs cta b/l cvs [id number] abd protuberant,no guarding ext erythema on shins,there is severe tenderness on the instep of his foot skin warm adn dry neuro axox3,moving all extremities,no facial drrop,no slurred speech psych appropriate - Medical Decision Making 11/27/17 21:43 CAT scan of abdomen and pelvis without contrast showed a mild air-filled colonic distention is noted, possibly on the basis of an ileus. There is cholelithiasis without any evidence of acute cholecystitis. Diffuse infiltration of the liver was noted. Small pericardial effusion is seen. Probable cardiomegaly. Transvenous cardiac pacemaker in place -There is no aortic aneurysm -There is no evidence of pneumoperitoneum, no abscess, no free intra-peritoneal fluid, no bowel obstruction, the appendix appears unremarkable 11/27/17 21:48 IMP cellulitis /will admit to med/surg/antibiotics
--- NOTE | 2017-11-27 22:18 | PN ---
Teaching Attending Note Name of Resident: Arlin Connor ATTENDING PHYSICIAN STATEMENT I saw and evaluated the patient. I reviewed the resident's note and discussed the case with the resident. I agree with the resident's findings and plan as documented. SUBJECTIVE: Patient is a 72 year old man with a history of HTN, HLD, DM, AFib, Gout, Chronic back pain, Pacemaker and Obesity who presents for evaluation of 1 week of generalized weakness. The patient is accompanied by family who assist in providing the history. They note that the patient has been complaining of generalized weakness and chills over the past 1 week. He has noted worsening edema and pain to his lower extremities with associated nausea, vomiting and diarrhea. He noted a red color to his urine today prompting his presentation to the ED for further evaluation. He otherwise denies headache, SOB, chest pain , abdominal pain, or numbness or tingling. OBJECTIVE: Alert Vital Signs Period Temp Pulse Resp BP Sys/Luke Pulse Ox Last 24 Hr 99.6 F 95 19 145/52 95 HEENT: No Jaundice, eye redness or discharge, PERRLA, EOMI. Normocephalic, atraumatic. External ears are normal and hearing is grossly intact. No nasal discharge. Neck: Supple, nontender. No palpable adenopathy or thyromegaly. No JVD Chest: Good effort. Clear to auscultation and percussion. Heart: Regular. No S3, rub or murmur Abdomen: Not distended, soft, nontender and no HSM. No rebound or guarding. Normoactive bowel sounds. Ext: Peripheral pulses intact. Bilateral lower leg and ankle edema, erythema and warmth. Skin: Warm and dry. No petechiae, rash or ecchymosis. Neuro: Alert. Oriented x3. CN 2-12 grossly intact. Sensation grossly intact in all four extremities and DTR are symmetric. Home Medications Medication Instructions Recorded Pantoprazole Sodium [Protonix -] 40 mg PO DAILY #10 tablet.ec 03/19/16 Valsartan [Diovan] 320 mg PO DAILY #60 tablet 03/24/16 Cyclobenzaprine HCl [Flexeril 10 10 mg PO BID PRN #10 tablet 08/09/17 mg] Abnormal Lab Results 11/27/17 11/27/17 11/27/17 15:50 15:50 15:50 WBC 20.5 H RDW 16.5 H Absolute Neuts (auto) 18.5 H Neutrophils % 90.4 H Neutrophils % (Manual) 87.0 H Lymphocytes % 2.4 L D Lymphocytes % (Manual) 5.0 L PT with INR 24.70 H INR 2.19 H Mixed VBG HCO3 29.5 H BUN Creatinine Random Glucose Lactic Acid Total Bilirubin Troponin I Albumin Urine Protein Urine Blood 11/27/17 11/27/17 11/27/17 15:50 15:50 15:50 WBC RDW Absolute Neuts (auto) Neutrophils % Neutrophils % (Manual) Lymphocytes % Lymphocytes % (Manual) PT with INR INR Mixed VBG HCO3 BUN 42 H Creatinine 1.6 H Random Glucose 166 H D Lactic Acid 3.1 H* Total Bilirubin 4.8 H Troponin I 0.15 H D Albumin 3.3 L Urine Protein Urine Blood 11/27/17 16:37 WBC RDW Absolute Neuts (auto) Neutrophils % Neutrophils % (Manual) Lymphocytes % Lymphocytes % (Manual) PT with INR INR Mixed VBG HCO3 BUN Creatinine Random Glucose Lactic Acid Total Bilirubin Troponin I Albumin Urine Protein 1+ H Urine Blood 1+ H ASSESSMENT AND PLAN: 1. Sepsis due to leg cellulitis/?Gouty arthritis - Lactic acidosis may be due to metformin and gouty arthritis may explain his leg findings. Will get uric acid level, treat with prednisone and ancef. Yet to confirm his anticoagulant drug -? coumadin as well as his ?diabetes drugs. Elevated troponin may be due to ROSARIO, but due to nonspecific t wave changes on EKG, will rule out ACS on telemetry. 2. DM - For now, we will hold the home diabetes drugs (if any?)and implement sliding scale insulin regimen. Provide comprehensive diabetes care with patient teaching and counseling about the importance of euglycemia, eye care and foot care. 3. ROSARIO? - Etiology unclear. Will consult nephrology and avoid nephrotoxic agents such as NSAIDS, aminoglycosides, contrast dyes and certain Alternative medicine products. 4. Obesity - Will provide patient all the necessary assistance, counseling and positive reinforcement to facilitate weight loss. Consult roll on man. 5. DVT prophylaxis - On coumadin? 6. Advance directives - Full code
[2017-11-27] MEDS ORDERED: predniSONE 10 MG TABLET (UD) PO ONE (23:30)
[2017-11-27] MEDS ORDERED: predniSONE 20 MG TABLET (UD) ONE (23:48)
[2017-11-27] MEDS ORDERED: CLINDAMYCIN PHOSPHATE 600 MG/4 ML VIAL ONE (23:49)
[2017-11-27] MEDS ORDERED: predniSONE 10 MG TABLET (UD) ONE (23:49)
[2017-11-27] MEDS: CLINDAMYCIN 300 MG PREMIX IVPB 300 MG/50 ML BAG IVPB SCH (23:53)
--- NOTE | 2017-11-27 23:53 | HP ---
CHIEF COMPLAINT: B/L leg pain and redness PCP: HISTORY OF PRESENT ILLNESS: 72 y/o male with PMH of HTN. HLD, DM, afib, pacemaker, who presents to the ED with a one week history of B/L LE swelling/pain/redness. Patient states that he feels like it is a flare up of his gout. For the past few days he has had a harder time walking as well and feels his legs were getting slightly more swollen. Of note, patient had a pacemaker placed around 4 months ago. He denies any CP/SOB/ fevers or chills. ER course was notable for: (1) WBC 20.5; LA 3.1; trop 0.15- repeat trop pending; (2) patient given NS; vancomycin/zosyn (3) Recent Travel: none PAST MEDICAL HISTORY: see above PAST SURGICAL HISTORY: pacemaker placements 4 months ago Social History: Smoking: former smoker; quit many years ago Alcohol: social alcohol use; 1-2 drinks on a weekend Drugs: denies Family History: Allergies No Known Allergies Allergy (Verified 12/08/15 11:21) HOME MEDICATIONS: Home Medications Medication Instructions Recorded Pantoprazole Sodium [Protonix -] 40 mg PO DAILY #10 tablet.ec 03/19/16 Valsartan [Diovan] 320 mg PO DAILY #60 tablet 03/24/16 Cyclobenzaprine HCl [Flexeril 10 10 mg PO BID PRN #10 tablet 08/09/17 mg] REVIEW OF SYSTEMS CONSTITUTIONAL: Absent: fever, chills, diaphoresis, generalized weakness, malaise, loss of appetite, weight change HEENT: Absent: rhinorrhea, nasal congestion, throat pain, throat swelling, difficulty swallowing, mouth swelling, ear pain, eye pain, visual changes CARDIOVASCULAR: Absent: chest pain, syncope, palpitations, irregular heart rate, lightheadedness , peripheral edema RESPIRATORY: Absent: cough, shortness of breath, dyspnea with exertion, orthopnea, wheezing, stridor, hemoptysis GASTROINTESTINAL: Absent: abdominal pain, abdominal distension, nausea, vomiting, diarrhea, constipation, melena, hematochezia GENITOURINARY: Absent: dysuria, frequency, urgency, hesitancy, hematuria, flank pain, genital pain MUSCULOSKELETAL: Present: myalgia, back pain Absent: arthralgia, joint swelling, neck pain SKIN: Absent: rash, itching, pallor HEMATOLOGIC/IMMUNOLOGIC: Absent: easy bleeding, easy bruising, lymphadenopathy, frequent infections ENDOCRINE: Absent: unexplained weight gain, unexplained weight loss, heat intolerance, cold intolerance NEUROLOGIC: Absent: headache, focal weakness or paresthesias, dizziness, unsteady gait, seizure, mental status changes, bladder or bowel incontinence PSYCHIATRIC: Absent: anxiety, depression, suicidal or homicidal ideation, hallucinations. PHYSICAL EXAMINATION Vital Signs - 24 hr 11/27/17 15:00 Temperature 99.6 F Pulse Rate 95 H Respiratory 19 Rate Blood Pressure 145/52 O2 Sat by Pulse 95 Oximetry (%) GENERAL: Awake, alert, and fully oriented, in no acute distress. NECK: no JVD seen LUNGS:lungs CTA B/L; no rales,rhonchi,wheezing HEART: Regular rate and rhythm, normal S1 and S2 without murmur, rub or gallop. ABDOMEN: protuberant; soft; non-tender; + bowel sounds in all four quadrants MUSCULOSKELETAL: Normal range of motion at all joints. No bony deformities or tenderness. No CVA tenderness. EXTREMITIES: B/L mcnally erythema; warm and tender to palpation . NEUROLOGICAL: Cranial nerves II-XII intact. Normal speech. Normal gait. PSYCHIATRIC: Cooperative. Good eye contact. Appropriate mood and affect. SKIN: Warm, dry, normal turgor, no rashes or lesions noted, normal capillary refill. Laboratory Results - last 24 hr 11/27/17 11/27/17 11/27/17 15:50 15:50 15:50 WBC 20.5 H RBC 4.05 Hgb 12.3 Hct 36.6 MCV 90.6 MCH 30.3 MCHC 33.5 RDW 16.5 H Plt Count 288 D MPV 9.9 Absolute Neuts (auto) 18.5 H Neutrophils % 90.4 H Neutrophils % (Manual) 87.0 H Band Neutrophils % 4.0 Lymphocytes % 2.4 L D Lymphocytes % (Manual) 5.0 L Monocytes % 6.3 Monocytes % (Manual) 4 Eosinophils % 0.0 D Eosinophils % (Manual) 0.0 Basophils % 0.9 Basophils % (Manual) 0.0 Nucleated RBC % 0 Platelet Estimate Adequate PT with INR 24.70 H INR 2.19 H PTT (Actin FS) 33.4 VBG pH 7.40 POC VBG pCO2 48.5 POC VBG pO2 32.8 Mixed VBG HCO3 29.5 H Sodium Potassium Chloride Carbon Dioxide Anion Gap BUN Creatinine Creat Clearance w eGFR Random Glucose Lactic Acid Calcium Total Bilirubin AST ALT Alkaline Phosphatase Creatine Kinase Creatine Kinase Index CK-MB (CK-2) Troponin I Total Protein Albumin Urine Color Urine Appearance Urine pH Ur Specific [place] Urine Protein Urine Glucose (UA) Urine Ketones Urine Blood Urine Nitrite Urine Bilirubin Urine Urobilinogen Ur Leukocyte Esterase Urine WBC (Auto) Urine RBC (Auto) Ur Epithelial Cells Hyaline Casts Urine Mucus Urine Yeast 11/27/17 11/27/17 11/27/17 15:50 15:50 15:50 WBC RBC Hgb Hct MCV MCH MCHC RDW Plt Count MPV Absolute Neuts (auto) Neutrophils % Neutrophils % (Manual) Band Neutrophils % Lymphocytes % Lymphocytes % (Manual) Monocytes % Monocytes % (Manual) Eosinophils % Eosinophils % (Manual) Basophils % Basophils % (Manual) Nucleated RBC % Platelet Estimate PT with INR INR PTT (Actin FS) VBG pH POC VBG pCO2 POC VBG pO2 Mixed VBG HCO3 Sodium 138 Potassium 3.8 Chloride 99 Carbon Dioxide 28 Anion Gap 11 BUN 42 H Creatinine 1.6 H Creat Clearance w eGFR 42.82 Random Glucose 166 H D Lactic Acid 3.1 H* Calcium 8.9 Total Bilirubin 4.8 H AST 36 D ALT 29 D Alkaline Phosphatase 86 Creatine Kinase Creatine Kinase Index CK-MB (CK-2) Troponin I 0.15 H D Total Protein 6.8 Albumin 3.3 L Urine Color Urine Appearance Urine pH Ur Specific [place] Urine Protein Urine Glucose (UA) Urine Ketones Urine Blood Urine Nitrite Urine Bilirubin Urine Urobilinogen Ur Leukocyte Esterase Urine WBC (Auto) Urine RBC (Auto) Ur Epithelial Cells Hyaline Casts Urine Mucus Urine Yeast 11/27/17 11/27/17 11/27/17 16:37 17:50 22:10 WBC RBC Hgb Hct MCV MCH MCHC RDW Plt Count MPV Absolute Neuts (auto) Neutrophils % Neutrophils % (Manual) Band Neutrophils % Lymphocytes % Lymphocytes % (Manual) Monocytes % Monocytes % (Manual) Eosinophils % Eosinophils % (Manual) Basophils % Basophils % (Manual) Nucleated RBC % Platelet Estimate PT with INR INR PTT (Actin FS) VBG pH POC VBG pCO2 POC VBG pO2 Mixed VBG HCO3 Sodium Potassium Chloride Carbon Dioxide Anion Gap BUN Creatinine Creat Clearance w eGFR Random Glucose Lactic Acid 2.0 Calcium Total Bilirubin AST ALT Alkaline Phosphatase Creatine Kinase 280 Creatine Kinase Index 0.5 CK-MB (CK-2) 1.63 Troponin I 0.12 H Total Protein Albumin Urine Color Karma Urine Appearance Cloudy Urine pH 5.0 Ur Specific [place] 1.019 Urine Protein 1+ H Urine Glucose (UA) Negative Urine Ketones Negative Urine Blood 1+ H Urine Nitrite Negative Urine Bilirubin Negative Urine Urobilinogen 4.0 e.u/dl Ur Leukocyte Esterase Negative Urine WBC (Auto) 7 Urine RBC (Auto) <1 Ur Epithelial Cells Rare Hyaline Casts 1 Urine Mucus Rare Urine Yeast Few ASSESSMENT/PLAN: 72 y/o male presents with B/L LE pain/weakness, with B/L mcnally swelling/ erythema and tenderness upon palpation; found to have a WBC of 20.5 and LA of 3.1 before fluids were given. # Lower extremity cellulitis vs. acute gout flare up given B/L swelling and erythema possibly acute gout flare up vs. cellulitis -started patient on 30 prednisone daily; will need to taper -c/w patients home dose colchicine -clindamycin 300 q6 -ID consult -uric acid level pending # elevated troponin -first trop 0.15; second pending -EKG showed non sepcific T wave inversions -will repeat EKG -monitor on tele # ROSARIO -patients Cr elevated from 1.3 to 1.6 -nephro consult -avoid nephrotoxic drugs # Diabetes -holding home diabetes meds; started patient on ISS # HTN -c/w home meds # HLD -c/w home meds DVT ppx: hepain 5000 TID F/E/N: not on standing fluids replete electrolytes when necessary diabetic diet dispo: telemetry Problem List - Problem (1) Sepsis Code(s): A41.9 - SEPSIS, UNSPECIFIED ORGANISM Qualifiers: Sepsis type: sepsis due to unspecified organism Qualified Code(s): A41.9 - Sepsis, unspecified organism (2) Acute gout Code(s): M10.9 - GOUT, UNSPECIFIED Qualifiers: Gout site: hand Gout etiology: unspecified cause Laterality: left Qualified Code(s): M10.9 - Gout, unspecified (3) History of atrial fibrillation Code(s): Z86.79 - PERSONAL HISTORY OF OTHER DISEASES OF THE CIRCULATORY SYSTEM Visit type - Emergency Visit Emergency Visit: Yes Care time: The patient presented to the Emergency Department on the above date and was hospitalized for further evaluation of their emergent condition. - New Patient This patient is new to me today: Yes Date on this admission: 11/28/17 - Critical Care Critical Care patient: No Hospitalist Screening - Colonoscopy Questionnaire Colonoscopy Questionnaire: Colonoscopy Questionnaire - Patient: 50 - 75 years old and never had a screening colonoscopy: Unknown History of colon or rectal polyps, or CA: Unknown History of IBD, Crohn's disease or UC: Unknown History of abdominal radiation therapy as a child: Unknown - Relative: 1 with colon or rectal CA, or polyps at age 60 or younger: Unknown Colon or rectal CA diagnosed at age 45 or younger: Unknown Multiple relatives with colon or rectal CA: Unknown - Outcome: Screening Result: Negative Screen
[2017-11-28] MEDS ORDERED: CYCLOBENZAPRINE HCL 10 MG TABLET (FP) PO PRN (00:12)
[2017-11-28] MEDS ORDERED: COLCHICINE 0.6 MG TABLET (FP) PO PRN (00:12)
[2017-11-28] MEDS ORDERED: COLCHICINE 0.6 MG TABLET (FP) PO ONE ×2 (01:03→02:04)
[2017-11-28 02:26] LABS: URIC ACID 11.6 mg/dL (2.6-7.2)
[2017-11-28] MEDS ORDERED: COLCHICINE 0.6 MG TABLET (FP) ONE ×2 (02:56→02:57)
[2017-11-28] MEDS: CLINDAMYCIN 300 MG PREMIX IVPB 300 MG/50 ML BAG IVPB SCH ×2 (03:01→11:51)
[2017-11-28] MEDS ORDERED: HEPARIN NA (PORCINE) 5,000 UNITS/ML 1ML VIAL SQ SCH (06:00)
[2017-11-28] MEDS ORDERED: HEPARIN NA (PORCINE) 5,000 UNITS/ML 1ML VIAL ONE (06:30)
[2017-11-28] MEDS: INSULIN SLIDING SCALE (NOVOLOG) 1 VIAL SQ SCH ×3 (06:40→17:37)
[2017-11-28] MEDS ORDERED: INSULIN (NOVOLOG) ASPART 100 UNITS/ML 10ML VIAL ONE (06:42)
[2017-11-28] MEDS ORDERED: PATIENT'S OWN MEDICATION (NON-FORMULARY) (Olmesartan/Hydrochlorothiazide [Benicar Hct 40-2 PO SCH (07:00)
[2017-11-28 07:34] LABS: HEMATOCRIT 33.8 % (35.4-49); HEMOGLOBIN 11.2 GM/dL (11.7-16.9); MCH 29.7 pg (25.7-33.7); MCHC 33.1 g/dl (32.0-35.9); MEAN PLT VOLUME 9.6 fl (7.5-11.1); PLATELET COUNT 251 K/MM3 (134-434); RBC 3.75 M/mm3 (4.00-5.60); RDW 16.6 % (11.9-15.9); WHITE BLOOD COUNT 18.2 K/mm3 (4.0-10.0)
[2017-11-28 07:51] LABS: ALBUMIN 2.7 g/dl (3.4-5.0); ANION GAP 14 MMOL/L (8-16); BLOOD UREA NITROGEN 40 mg/dL (7-18); CALCIUM 8.3 mg/dL (8.5-10.1); CHLORIDE 101 mmol/L (98-107); CO2 26 mmol/L (21-32); GLUCOSE,RANDOM 186 mg/dL (74-106); MAGNESIUM 2.2 mg/dL (1.8-2.4); POTASSIUM 3.7 mmol/L (3.5-5.1); SODIUM 141 mmol/L (136-145)
[2017-11-28 07:55] LABS: ALK PHOS 78 U/L (45-117); BILIRUBIN,TOTAL 4.5 mg/dL (0.2-1.0); CREATININE 1.5 mg/dL (0.7-1.3); PHOSPHOROUS 3.5 mg/dL (2.5-4.9); SGOT/AST 32 U/L (15-37); SGPT/ALT 27 U/L (12-78); TOT PROT 5.9 g/dl (6.4-8.2)
[2017-11-28] MEDS ORDERED: FUROSEMIDE 40 MG TABLET (FP) PO SCH (10:00)
[2017-11-28] MEDS ORDERED: VALSARTAN 160 MG TABLET (UD) PO SCH (10:00)
[2017-11-28] MEDS ORDERED: HYDROCHLOROTHIAZIDE 25 MG TABLET (FP) PO SCH (10:00)
--- NOTE | 2017-11-28 10:12 | PN ---
Physical Exam: SUBJECTIVE: Patient seen and examined at bedside in the ED. He complains of B/L lower extremity pain for the past three days. Also complains of B/L knee pain that is sharp 8/10 intensity and provoked with any movement. Began at the same time as lower extremity pain. Admits he ran out of Colchicine approx. 1 week ago. He completed a steroid dose pack earlier last month for recent exacerbation of gout in B/L hands, and right elbow. Admits liquidy brown diarrhea for past three days. OBJECTIVE: Vital Signs Period Temp Pulse Resp BP Sys/Luke Pulse Ox Last 24 Hr 97.9 F-99.6 F 70-95 14-20 131-162/52-76 95-97 GENERAL: The patient is awake, alert, and fully oriented, in mild distress. HEAD: Normal with no signs of trauma. EYES: PERRL, extraocular movements intact, sclera anicteric, conjunctiva clear. ENT: Oropharynx clear without exudates, moist mucous membranes. NECK: Trachea midline, full range of motion, supple. LUNGS: Breath sounds equal, clear to auscultation bilaterally, no wheezes, no accessory muscle use. HEART: Regular rate and rhythm, S1, S2 without murmur, rub or gallop appreciated. ABDOMEN: Obese abdomen. Distended. Soft, nontender to palpation, normoactive bowel sounds, no guarding, no rebound. EXTREMITIES: 1+ DP pulses B/L. 2+ radial pulses B/L. Discoloration (hemosiderin deposits) in B/L lower extremities at level of medial/ lateral malleolus extending superiorly 5-6 inches B/L. Warm to touch. Tender to deeper palpation. Pain to palpation of B/L knees at joint line. NEUROLOGICAL: Cranial nerves II through XII grossly intact. Normal speech. Upper extremity strength 5/5 B/L in flexion extension, abduction, adduction. Lower extremity strength limited by pain. Hip flexion, extension 3/5 B/L. Knee flexion and extension 3/5 B/L. Dorsiflexion and Plantarflexion 4/5 B/L. PSYCH: Appropriate mood and affect upon my exam today. SKIN: Warm. Discoloration hyperpigmentation in B/L lower extremities at level of medial/ lateral malleolus extending superiorly 5-6 inches B/L. Laboratory Results - last 24 hr 11/27/17 11/27/17 11/27/17 15:50 15:50 15:50 WBC 20.5 H RBC 4.05 Hgb 12.3 Hct 36.6 MCV 90.6 MCH 30.3 MCHC 33.5 RDW 16.5 H Plt Count 288 D MPV 9.9 Absolute Neuts (auto) 18.5 H Neutrophils % 90.4 H Neutrophils % (Manual) 87.0 H Band Neutrophils % 4.0 Lymphocytes % 2.4 L D Lymphocytes % (Manual) 5.0 L Monocytes % 6.3 Monocytes % (Manual) 4 Eosinophils % 0.0 D Eosinophils % (Manual) 0.0 Basophils % 0.9 Basophils % (Manual) 0.0 Nucleated RBC % 0 Platelet Estimate Adequate PT with INR 24.70 H INR 2.19 H PTT (Actin FS) 33.4 VBG pH 7.40 POC VBG pCO2 48.5 POC VBG pO2 32.8 Mixed VBG HCO3 29.5 H Sodium Potassium Chloride Carbon Dioxide Anion Gap BUN Creatinine Creat Clearance w eGFR POC Glucometer Random Glucose Hemoglobin A1c % Lactic Acid Uric Acid Calcium Phosphorus Magnesium Total Bilirubin AST ALT Alkaline Phosphatase Creatine Kinase Creatine Kinase Index CK-MB (CK-2) Troponin I Total Protein Albumin Urine Color Urine Appearance Urine pH Ur Specific [place] Urine Protein Urine Glucose (UA) Urine Ketones Urine Blood Urine Nitrite Urine Bilirubin Urine Urobilinogen Ur Leukocyte Esterase Urine WBC (Auto) Urine RBC (Auto) Ur Epithelial Cells Hyaline Casts Urine Mucus Urine Yeast 11/27/17 11/27/17 11/27/17 15:50 15:50 15:50 WBC RBC Hgb Hct MCV MCH MCHC RDW Plt Count MPV Absolute Neuts (auto) Neutrophils % Neutrophils % (Manual) Band Neutrophils % Lymphocytes % Lymphocytes % (Manual) Monocytes % Monocytes % (Manual) Eosinophils % Eosinophils % (Manual) Basophils % Basophils % (Manual) Nucleated RBC % Platelet Estimate PT with INR INR PTT (Actin FS) VBG pH POC VBG pCO2 POC VBG pO2 Mixed VBG HCO3 Sodium 138 Potassium 3.8 Chloride 99 Carbon Dioxide 28 Anion Gap 11 BUN 42 H Creatinine 1.6 H Creat Clearance w eGFR 42.82 POC Glucometer Random Glucose 166 H D Hemoglobin A1c % Lactic Acid 3.1 H* Uric Acid Calcium 8.9 Phosphorus Magnesium Total Bilirubin 4.8 H AST 36 D ALT 29 D Alkaline Phosphatase 86 Creatine Kinase Creatine Kinase Index CK-MB (CK-2) Troponin I 0.15 H D Total Protein 6.8 Albumin 3.3 L Urine Color Urine Appearance Urine pH Ur Specific [place] Urine Protein Urine Glucose (UA) Urine Ketones Urine Blood Urine Nitrite Urine Bilirubin Urine Urobilinogen Ur Leukocyte Esterase Urine WBC (Auto) Urine RBC (Auto) Ur Epithelial Cells Hyaline Casts Urine Mucus Urine Yeast 11/27/17 11/27/17 11/27/17 16:37 17:50 22:10 WBC RBC Hgb Hct MCV MCH MCHC RDW Plt Count MPV Absolute Neuts (auto) Neutrophils % Neutrophils % (Manual) Band Neutrophils % Lymphocytes % Lymphocytes % (Manual) Monocytes % Monocytes % (Manual) Eosinophils % Eosinophils % (Manual) Basophils % Basophils % (Manual) Nucleated RBC % Platelet Estimate PT with INR INR PTT (Actin FS) VBG pH POC VBG pCO2 POC VBG pO2 Mixed VBG HCO3 Sodium Potassium Chloride Carbon Dioxide Anion Gap BUN Creatinine Creat Clearance w eGFR POC Glucometer Random Glucose Hemoglobin A1c % Lactic Acid 2.0 Uric Acid 11.6 H Calcium Phosphorus Magnesium Total Bilirubin AST ALT Alkaline Phosphatase Creatine Kinase 280 Creatine Kinase Index 0.5 CK-MB (CK-2) 1.63 Troponin I 0.12 H Total Protein Albumin Urine Color Karma Urine Appearance Cloudy Urine pH 5.0 Ur Specific [place] 1.019 Urine Protein 1+ H Urine Glucose (UA) Negative Urine Ketones Negative Urine Blood 1+ H Urine Nitrite Negative Urine Bilirubin Negative Urine Urobilinogen 4.0 e.u/dl Ur Leukocyte Esterase Negative Urine WBC (Auto) 7 Urine RBC (Auto) <1 Ur Epithelial Cells Rare Hyaline Casts 1 Urine Mucus Rare Urine Yeast Few 11/28/17 11/28/17 11/28/17 05:50 07:08 07:08 WBC 18.2 H RBC 3.75 L Hgb 11.2 L Hct 33.8 L MCV 90.0 MCH 29.7 MCHC 33.1 RDW 16.6 H Plt Count 251 MPV 9.6 Absolute Neuts (auto) Neutrophils % Neutrophils % (Manual) Band Neutrophils % Lymphocytes % Lymphocytes % (Manual) Monocytes % Monocytes % (Manual) Eosinophils % Eosinophils % (Manual) Basophils % Basophils % (Manual) Nucleated RBC % Platelet Estimate PT with INR INR PTT (Actin FS) VBG pH POC VBG pCO2 POC VBG pO2 Mixed VBG HCO3 Sodium 141 Potassium 3.7 Chloride 101 Carbon Dioxide 26 Anion Gap 14 BUN 40 H Creatinine 1.5 H Creat Clearance w eGFR 46.13 POC Glucometer [phone] Random Glucose 186 H Hemoglobin A1c % Lactic Acid Uric Acid Calcium 8.3 L Phosphorus 3.5 Magnesium 2.2 Total Bilirubin 4.5 H AST 32 ALT 27 Alkaline Phosphatase 78 Creatine Kinase Creatine Kinase Index CK-MB (CK-2) Troponin I Total Protein 5.9 L Albumin 2.7 L Urine Color Urine Appearance Urine pH Ur Specific [place] Urine Protein Urine Glucose (UA) Urine Ketones Urine Blood Urine Nitrite Urine Bilirubin Urine Urobilinogen Ur Leukocyte Esterase Urine WBC (Auto) Urine RBC (Auto) Ur Epithelial Cells Hyaline Casts Urine Mucus Urine Yeast 11/28/17 11/28/17 07:08 07:08 WBC RBC Hgb Hct MCV MCH MCHC RDW Plt Count MPV Absolute Neuts (auto) Neutrophils % Neutrophils % (Manual) Band Neutrophils % Lymphocytes % Lymphocytes % (Manual) Monocytes % Monocytes % (Manual) Eosinophils % Eosinophils % (Manual) Basophils % Basophils % (Manual) Nucleated RBC % Platelet Estimate PT with INR INR PTT (Actin FS) VBG pH POC VBG pCO2 POC VBG pO2 Mixed VBG HCO3 Sodium Potassium Chloride Carbon Dioxide Anion Gap BUN Creatinine Creat Clearance w eGFR POC Glucometer Random Glucose Hemoglobin A1c % 6.6 H Lactic Acid Uric Acid Calcium Phosphorus Magnesium Total Bilirubin AST ALT Alkaline Phosphatase Creatine Kinase Creatine Kinase Index CK-MB (CK-2) Troponin I 0.10 H Total Protein Albumin Urine Color Urine Appearance Urine pH Ur Specific [place] Urine Protein Urine Glucose (UA) Urine Ketones Urine Blood Urine Nitrite Urine Bilirubin Urine Urobilinogen Ur Leukocyte Esterase Urine WBC (Auto) Urine RBC (Auto) Ur Epithelial Cells Hyaline Casts Urine Mucus Urine Yeast Active Medications Generic Name Dose Route Start Last Admin Trade Name Freq PRN Reason Stop Dose Admin Atorvastatin Calcium 20 mg 11/28/17 22:00 Lipitor - PO HS [facility] Insulin Aspart 1 vial 11/28/17 07:00 11/28/17 06:40 Novolog Vial Sliding Scale - SQ 2 units ACHS [facility] Administration Protocol Pneumococcal 13-Valent Conj Vacc 0.5 ml 11/28/17 10:00 Prevnar 13 Syringe - IM 11/28/17 10:01 .ONCE ONE Prednisone 30 mg 11/28/17 10:00 Deltasone - PO DAILY [facility] Warfarin Sodium 5 mg 11/28/17 18:00 Coumadin - PO DAILY@1800 [facility] Imaging: CT abdomen/ pelvis showed: hepatic steatosis, small pericardial effusion, cholelithiasis without evidence cholecystitis. ASSESSMENT/PLAN: Patient is a 72 year old male with history of Gout, DM, HLD, Afib on Coumadin presents with complaint of B/L lower extremity pain. Admitted for cellulitis vs gout flare up. Gout flare-up -Likely gout d/t patient's history of gout, recently run out of Colchicine. No fluctuance or erythema of the joints appreciated that could suggest gout. -Prednisone 30mg PO QD -No Colchicine or NSAIDs d/t patient's ROSARIO ROSARIO -Creatinine 1.5 -Nephrology consult (Dr. Gabriel) appreciated: Will begin gentle hydration, and f/u renal US, and urine electrolytes. Leukocytosis -Unclear etiology. However unlikely d/t cellulitis as there is no erythema of inflammation. -Patient admits liquidy brown diarrhea for past three days. -F/U C.diff cultures -F/U Stool cultures -F/U Blood cultures -F/U Urine cultures -ID consult (Dr. Galvez) appreciated: No antibiotics at this time. Will observe off antibiotics Troponinemia -Trending down 0.15 -> 0.12 -> 0.10 -EKG showed: Afib with ocassional ventricular paced complexes, RBBB, left posterior fascicular block. T wave abnormality seen in anterior-septal leads. -Likely due to patient's acute renal failure. Will follow ECHO to rule out heart failure leading to demand ischemia. -Will F/U cardiac ECHO for pericardial effusion noted on CT abdomen pelvis done in ER Afib -Coumadin 5 mg PO QD HTN -Hold Olmesartan-HCTZ 40-25. HLD -Simvastatin 40mg PO QD DM -Hold Metformin 500mg PO QD -ISS -BGM FEN -IVNS at 75mL/hr -Will follow CMP -Diabetic diet Prophylaxis -On Warfarin 5mg PO QD Disposition -Continue care in medical-surgical floor. Visit type - Emergency Visit Emergency Visit: Yes ED Registration Date: 11/27/17 Care time: The patient presented to the Emergency Department on the above date and was hospitalized for further evaluation of their emergent condition. - New Patient This patient is new to me today: Yes Date on this admission: 11/28/17 - Critical Care Critical Care patient: No - Discharge Referral Referred to [facility] No
[2017-11-28] MEDS ORDERED: predniSONE 20 MG TABLET (UD) ONE (11:36)
[2017-11-28] MEDS ORDERED: predniSONE 10 MG TABLET (UD) ONE (11:36)
[2017-11-28] MEDS: predniSONE 20 MG TABLET (UD) PO SCH (11:45)
--- NOTE | 2017-11-28 12:23 | PN ---
Teaching Attending Note Name of Resident: Tao Melendrez ATTENDING PHYSICIAN STATEMENT I saw and evaluated the patient. I reviewed the resident's note and discussed the case with the resident. I agree with the resident's findings and plan as documented. SUBJECTIVE: No fever or chills, cont to have pain in b/l feet and ankles, has pain in knees. reports his abd is more distended than before. had 4 episodes fo watery diarrhea on his way to the ER and in ER. denies cough or SOB. had the painin feet x 1 week and was worse in past 2 days . has been in bed most of the time. reports no NSAIDS use, just his colchicine bid and oxycodone ( for back pain ) . he has no urinary sx , and no N/V. denied CP or SOB. reports having the gout diagnosis after a joint tap. episodes happen in ankles, knees, hip, elbows and feet OBJECTIVE: NAD , Awake , alert and cooperative HEENT: dry crackles lips, no facial droop. poor dentition , no JVD. CV: RRR, no MRG lungs: CATB Abd: soft, distended in upper part, TTP in RUQ, LUQ, and epigastric area, tympany in upper abd. nl BS Ext: No axillary sweating , no erythema over knees. erythema , varicose veins but no increased warmth on lower legs. erythema and increased warmth with edema on dorsal feet. TTP over ankles and feet with decreased range of motion of ankles . ASSESSMENT AND PLAN: 72 y/o man with h/o DM , A fib, HTN, HLP, s/p PPM , chronic back pain, gout, brain mass s/p resection, and other medical problems who presented with b/l feet pain. 1- Polyarticular gout: no joint effusion, no suspicion for septic joint. No signs of cellulitis. no soft tissue infection to explain leukocytosis. - cont with prednisone given renal failure - hold colchicine due to renal failure. - can't give NSAIDS. 3- Leukocytosis : unclear etiology. no fever or chills. no concern for soft tissue infection. US of abd with no evidence of cholecystitis or CBD dilation. cxray and UA are not suggestive of infection. has diarrhea and distended colon. - check c diff and stool cx - hold off Abx in setting of unclear source. - follow urine and blood cx 4- ROSARIO : probably prerenal in etiology, give being sick and on diuretics. has no axillary sweating. dry MM. no NSAIDs use. - check FeUrea. - start IVF - hold losartan - kidneys appear unremarkable on US 5- Trop leak: EKG with TWI in anterioseptala nd lateral leads. no old EKG to compare to. No CP . suspect troponinemia is due to renal failure -obtain old EKG from Dr. Sauceda''s office - echo , to explore the pericardial effusion seen on CT 6- DM, HTN: will confirm home dose meds. will contact PCP . 7- A fib: will confirm meds and cont coumadin 8- DVTpx : on coumadin
--- NOTE | 2017-11-28 12:33 | CONSULT ---
Consult Consult Specialty:: Nephrology Reason for Consultation:: ROSARIO - History of Present Illness Chief Complaint: diarrhea History of Present Illness: Pt is a 72 year old male with pmhx of HTN, DM, HLD, and obesity who presents to the ER with generalized weekness for the last week. He also complains of diarrhea. He had about 5 episodes yesterday and has has 4 episodes so far today. He also complains of bilateral foot pain. He was found to have elevated creatinine and I was called to see him. He denies history of CKD. He denies nsaid use. He did have hematuria. He denies dysuria. He denies passing clots in his urine. Pt was taking colchicine. - History Source History Provided By: Patient, Medical Record - Past Medical History Cardio/Vascular: Yes: AFIB, HTN, Hyperlipdemia Rheumatology: Yes: Gout Endocrine: Yes: Diabetes Mellitus - Alcohol/Substance Use Hx Alcohol Use: No - Smoking History Smoking history: Unknown if ever smoked Have you smoked in the past 12 months: No Aproximately how many cigarettes per day: 0 If you are a former smoker, when did you quit?: 30 yrs ago Home Medications - Allergies Allergies/Adverse Reactions: Allergies Allergy/AdvReac Type Severity Reaction Status Date / Time No Known Allergies Allergy Verified 12/08/15 11:21 - Home Medications Home Medications: Ambulatory Orders Colchicine 0.6 mg PO BID PRN 11/28/17 Furosemide 40 mg PO DAILY 11/28/17 Olmesartan/Hydrochlorothiazide [Olmesartan-Hctz 40-25 mg Tab] 1 each PO DAILY Simvastatin 40 mg PO DAILY 11/28/17 Warfarin Na [Coumadin] 10 mg PO DAILY 11/28/17 metFORMIN HCL [Metformin HCl] 500 mg PO DAILY 11/28/17 Family Disease History - Family Disease History Family History: Denies Review of Systems - Review of Systems Constitutional: reports: Malaise Eyes: reports: No Symptoms HENT: reports: No Symptoms Neck: reports: No Symptoms Cardiovascular: reports: No Symptoms Respiratory: reports: No Symptoms Gastrointestinal: reports: Diarrhea Musculoskeletal: reports: Joint Pain Integumentary: reports: No Symptoms Neurological: reports: No Symptoms Endocrine: reports: No Symptoms Hematology/Lymphatic: reports: No Symptoms Psychiatric: reports: No Symptoms Physical Exam Vital Signs: Vital Signs Temperature 97.9 F 11/28/17 07:40 Pulse Rate 70 09/11/18 07:40 Respiratory Rate 20 11/28/17 07:40 Blood Pressure 131/76 11/28/17 07:40 O2 Sat by Pulse Oximetry (%) 97 11/28/17 07:40 Constitutional: Yes: Calm Eyes: Yes: Conjunctiva Clear HENT: Yes: Atraumatic Neck: Yes: Supple Cardiovascular: Yes: S1, S2 Respiratory: Yes: On Nasal O2 Gastrointestinal: Yes: Soft, Abdomen, Obese, Tenderness Renal/: Yes: WNL Musculoskeletal: Yes: WNL Edema: Yes Edema: LLE: Trace, RLE: Trace Neurological: Yes: Oriented Psychiatric: Yes: Oriented Labs: CBC, BMP 11/28/17 07:08 11/28/17 07:08 Laboratory Tests 02/25/14 03/18/16 03/22/16 23:03 23:00 01:47 WBC BUN Creatinine 1.2 1.3 1.6 H D Hemoglobin A1c % Urine Protein Urine Blood 03/22/16 03/23/16 11/27/17 Unknown 05:35 15:50 WBC 20.5 H BUN Creatinine 1.3 1.3 Hemoglobin A1c % Urine Protein Urine Blood 11/27/17 11/27/17 11/28/17 15:50 16:37 07:08 WBC 18.2 H BUN Creatinine 1.6 H Hemoglobin A1c % Urine Protein 1+ H Urine Blood 1+ H 11/28/17 11/28/17 07:08 07:08 WBC BUN 40 H Creatinine 1.5 H Hemoglobin A1c % 6.6 H Urine Protein Urine Blood Imaging - Results Cat Scan: Report Reviewed Assessment/Plan Current Medications Generic Name Dose Route Start Last Admin Trade Name Freq PRN Reason Stop Dose Admin Atorvastatin Calcium 20 mg 11/28/17 22:00 Lipitor - PO HS CHINYERE Sodium Chloride 1,000 mls @ 75 mls/hr 11/28/17 12:45 Normal Saline - IV ASDIR CHINYERE Insulin Aspart 1 vial 11/28/17 07:00 11/28/17 06:40 Novolog Vial Sliding Scale - SQ 2 units ACHS CHINYERE Administration Protocol Pneumococcal 13-Valent Conj Vacc 0.5 ml 11/28/17 10:00 Prevnar 13 Syringe - IM 11/28/17 10:01 .ONCE ONE Prednisone 30 mg 11/28/17 10:00 11/28/17 11:45 Deltasone - PO 30 mg DAILY CHINYERE Administration Warfarin Sodium 5 mg 11/28/17 18:00 Coumadin - PO DAILY@1800 [facility] Impression 1. Azotemia 2. diarrhea 3. gout 4. ileus 5. pericardial effusion 6. DM Plan - stop colchicine - agree with steroids for gout in this setting - agree with gentle hydration - echo to evaluate effusion - renal ultrasound - check urine lytes - repeat labs in am - avoid nsaids - discussed with medical team - likely pre-renal component from diarrhea
[2017-11-28] MEDS ORDERED: SODIUM CHLORIDE 1,000 ML IV SCH (12:45)
--- NOTE | 2017-11-28 14:14 | PN ---
Progress Note (short form) - Note Progress Note: ID consult dictated imp/reccd 72 year old man admitted from home with c/o bilateral foot/knee pain also diarrhea nonbloody 4-5 times a day since the weekend no nausea or vomiting, notes abdominal distention poor appetite no sick contacts no fevers no travel [address] [facility] gout PPM several months ago [facility] RECENTLY COMPLETED 5 MEDROL PAKS- IS OFF FOR ABOUT A WEEK EACH TIME-OVER THE SMUUMER CT SCAN- gall stones, fatty liver received vanco/zosyn in ED leukocytosis- diarrhea no colitis on ct scan bilateral foot pain- not classic for gout blood cultures sent send stool for cdiff (no recent abx), wbc and culture observe off antibiotics Problem List - Problems (1) Leukocytosis Code(s): D72.829 - ELEVATED WHITE BLOOD CELL COUNT, UNSPECIFIED (2) Diarrhea Code(s): R19.7 - DIARRHEA, UNSPECIFIED (3) Foot pain, bilateral Code(s): M79.671 - PAIN IN RIGHT FOOT; M79.672 - PAIN IN LEFT FOOT
--- NOTE | 2017-11-28 15:17 | CONS ---
DATE OF CONSULTATION: DATE OF DICTATION: 11/28/2017 REQUESTED BY: Hospitalist service. This is a 72-year-old man, past medical history of hypertension and gout. He presents to the emergency room with a 2 to 3 day history of diarrhea, he reports up to 5 to 6 times a day, non-bloody. He has had no appetite. He complains of myalgia. He notes pain on the soles of his feet, making it difficult for him to walk, and abdominal distention. He has chronic back pain, which he reports is worse. The stools are nonbloody. He has had no vomiting. There is no history of any travel. He has no sick contacts. His and daughter are at the bedside and they are well. Of note, all summer he has been struggling with gout. He says he has completed 5 Medrol packs given to him by his PMD and that he is off for less than a week before he starts having pain in his feet again, at which time he contacts his doctor. He reports as well that he was taking colchicine but states he stopped it about a week ago. He finished the steroids as well several days ago. Past medical history is notable for atrial fibrillation, hypertension, hyperlipidemia, gout, diabetes. SURGICAL HISTORY: He has a permanent pacemaker that was placed about 3 to 4 months ago, he says because his heart was very slow and he was very sluggish. He quit smoking 30 years ago. There is no history of any substance use. He lives at home with his family. He has no known drug allergies. His medications at home include colchicine, furosemide, Benicar, olmesartan, hydrochlorothiazide, simvastatin, warfarin, and metformin. Family history is unremarkable. REVIEW OF SYSTEMS: He has no fevers or chills. He currently has no abdominal pain though he notes abdominal distention and he has no chest pain or cough. PHYSICAL EXAMINATION: General: He is a pleasant man in no acute distress. Vital Signs: Temperature is 97.9. Pulse 70. Blood pressure 131/76. Respiratory rate 20. He is saturating 97%. HEENT: Normocephalic. His eyes are anicteric. Neck: Supple. Lungs: Clear to auscultation. Heart: Regular rate and rhythm. Pacemaker site is without any erythema. Abdomen: Soft. It is slightly distended. It is nontender. Extremities: He has exquisite pain on the soles of his feet. He has minimal erythema. He has no joint effusions or skin breakdown. Labs are notable on admission for white count 20, today 18, hemoglobin 11.2, platelets are 251, INR is 2.19, BUN 40, creatinine 1.5, bilirubin of 4.5, but otherwise normal liver function tests. He has a troponin of 0.1. Urinalysis has 7 white cells with a negative leukocyte esterase. Urine and blood cultures are pending. Chest x-ray is unremarkable. He has had a CAT scan of his abdomen and pelvis as well as a sonogram that shows hepatosplenomegaly, fatty liver, gallstones. Chest x-ray shows no acute pathology. In summary, this is a 72-year-old man with diabetes, CKD, admitted with diarrhea and bilateral leg pain, though clinically it is atypical for gout, and leukocytosis. He received vancomycin and Zosyn in the ER. I would suggest at this time that we hold his antibiotics. This could all be secondary to his diarrhea. He denies any recent antibiotic use but it would certainly be reasonable to send stool cultures, white cells, and stool for C difficile. The nurses report he has had no diarrhea since admission. CT of the abdomen has been benign. Number 2, management of his gout per the primary service. Number 3, chronic kidney disease. Number 4, diabetes. Lastly, recent permanent pacemaker. Further recommendations to follow. PAYTON CLARKE M.D. [id number]
--- NOTE | 2017-11-28 17:16 | EKG ---
Test Reason : Blood Pressure : / mmHG Vent. Rate : 075 BPM Atrial Rate : 214 BPM P-R Int : 000 ms QRS Dur : 122 ms QT Int : 384 ms P-R-T Axes : 000 120 -16 degrees QTc Int : 428 ms ATRIAL FIBRILLATION WITH OCCASIONAL ventricular-paced complexes RIGHT BUNDLE BRANCH BLOCK LEFT POSTERIOR FASCICULAR BLOCK BIFASCICULAR BLOCK T WAVE ABNORMALITY, CONSIDER LATERAL ISCHEMIA ABNORMAL ECG Confirmed by MD VICTOR HUGO, TIMOTHY ([id number]) on 11/28/2017 5:16:08 PM Referred By: Confirmed By:TIMOTHY GAY MD
[2017-11-28] MEDS: WARFARIN NA 5 MG TABLET (UD) PO SCH (17:37)
[2017-11-28] MEDS: ATORVASTATIN CA 20 MG TABLET (FP) PO SCH (22:09)
[2017-11-28 22:17] LABS: URINE UREA NITROGEN 990.82 MG/DL
[2017-11-28] MEDS ORDERED: ONDANSETRON 4 MG/2 ML VIAL IVPUSH ONE (22:29)
[2017-11-28] MEDS: VANCOMYCIN 250 MG/5 ML ORAL SOLUTION PO SCH (23:26)
[2017-11-29] MEDS: VANCOMYCIN 250 MG/5 ML ORAL SOLUTION PO SCH ×2 (05:57→13:36)
[2017-11-29] MEDS ORDERED: COLCHICINE 0.6 MG TABLET (FP) PO PRN (06:00)
[2017-11-29] MEDS: INSULIN SLIDING SCALE (NOVOLOG) 1 VIAL SQ SCH ×3 (06:10→18:44)
[2017-11-29 06:35] LABS: BASO % 0.6 % (0-2.0); HEMATOCRIT 33.1 % (35.4-49); HEMOGLOBIN 10.9 GM/dL (11.7-16.9); LYMPH % 4.1 % (8-40); MCH 29.9 pg (25.7-33.7); MEAN CELL VOLUME 90.6 fl (80-96); MEAN PLT VOLUME 9.5 fl (7.5-11.1); MONO % 5.7 % (3.8-10.2); NEUT % 89.6 % (42.8-82.8); PLATELET COUNT 271 K/MM3 (134-434); RBC 3.65 M/mm3 (4.00-5.60); RDW 16.2 % (11.9-15.9)
[2017-11-29 07:15] LABS: ALBUMIN 2.7 g/dl (3.4-5.0); ANION GAP 12 MMOL/L (8-16); BLOOD UREA NITROGEN 49 mg/dL (7-18); CALCIUM 8.5 mg/dL (8.5-10.1); CHLORIDE 103 mmol/L (98-107); CO2 27 mmol/L (21-32); GLUCOSE,RANDOM 165 mg/dL (74-106); POTASSIUM 3.7 mmol/L (3.5-5.1); SODIUM 142 mmol/L (136-145)
[2017-11-29 07:19] LABS: ALK PHOS 79 U/L (45-117); BILIRUBIN,TOTAL 2.6 mg/dL (0.2-1.0); CREATININE 1.5 mg/dL (0.7-1.3); SGOT/AST 42 U/L (15-37); SGPT/ALT 40 U/L (12-78)
--- NOTE | 2017-11-29 08:31 | PN ---
Physical Exam: SUBJECTIVE: Patient seen and examined at bedside this morning. He admits significant improvement in B/L lower extremity pain. Admits nausea, and liquidy diarrhea overnight. Denies vomiting. Denies fevers, chills, chest pain, palpitations, shortness of breath, cough. OBJECTIVE: Vital Signs Period Temp Pulse Resp BP Sys/Luke Pulse Ox Last 24 Hr 98 F-98.5 F 73-98 16-95 110-157/56-88 98-98 GENERAL: The patient is awake, alert, and fully oriented, in mild distress. HEAD: Normal with no signs of trauma. EYES: PERRL, extraocular movements intact, sclera anicteric, conjunctiva clear. ENT: Oropharynx clear without exudates, moist mucous membranes. NECK: Trachea midline, full range of motion, supple. LUNGS: Breath sounds equal, clear to auscultation bilaterally, no wheezes, no accessory muscle use. HEART: Regular rate and rhythm, S1, S2 without murmur, rub or gallop appreciated. ABDOMEN: Obese abdomen. Distended. Soft, nontender to palpation, normoactive bowel sounds, no guarding, no rebound. EXTREMITIES: 1+ DP pulses B/L. 2+ radial pulses B/L. Discoloration ( hyperpigmentation) in B/L lower extremities at level of medial/ lateral malleolus extending superiorly 5-6 inches B/L. Warm to touch. Tender to deeper palpation. Pain to palpation of B/L knees at joint line. NEUROLOGICAL: Cranial nerves II through XII grossly intact. Normal speech. Upper extremity strength 5/5 B/L in flexion extension, abduction, adduction. Lower extremity strength limited by pain. Hip flexion, extension 4/5 B/L. Knee flexion and extension 4/5 B/L. Dorsiflexion and Plantarflexion 4/5 B/L. Strength improving today from yesterday, with improvement of active range of motion in B/L LE. PSYCH: Appropriate mood and affect upon my exam today. SKIN: Warm. Discoloration hyperpigmentation in B/L lower extremities at level of medial/ lateral malleolus extending superiorly 5-6 inches B/L. Laboratory Results - last 24 hr 11/28/17 11/28/17 11/28/17 05:50 12:38 17:21 WBC RBC Hgb Hct MCV MCH MCHC RDW Plt Count MPV Absolute Neuts (auto) Neutrophils % Lymphocytes % Monocytes % Eosinophils % Basophils % Nucleated RBC % Sodium Potassium Chloride Carbon Dioxide Anion Gap BUN Creatinine Creat Clearance w eGFR POC Glucometer [phone] 214 Random Glucose Calcium Total Bilirubin AST ALT Alkaline Phosphatase Total Protein Albumin Ur Random Sodium Ur Random Potassium Ur Random Chloride Urine Creatinine 11/28/17 11/28/17 11/29/17 20:35 20:35 05:30 WBC 16.0 H RBC 3.65 L Hgb 10.9 L Hct 33.1 L MCV 90.6 MCH 29.9 MCHC 33.0 RDW 16.2 H Plt Count 271 MPV 9.5 Absolute Neuts (auto) 14.3 H Neutrophils % 89.6 H Lymphocytes % 4.1 L D Monocytes % 5.7 Eosinophils % 0.0 Basophils % 0.6 Nucleated RBC % 0 Sodium Potassium Chloride Carbon Dioxide Anion Gap BUN Creatinine Creat Clearance w eGFR POC Glucometer Random Glucose Calcium Total Bilirubin AST ALT Alkaline Phosphatase Total Protein Albumin Ur Random Sodium 11 Ur Random Potassium 28.2 Ur Random Chloride < 10 Urine Creatinine 137.0 11/29/17 11/29/17 05:30 06:02 WBC RBC Hgb Hct MCV MCH MCHC RDW Plt Count MPV Absolute Neuts (auto) Neutrophils % Lymphocytes % Monocytes % Eosinophils % Basophils % Nucleated RBC % Sodium 142 Potassium 3.7 Chloride 103 Carbon Dioxide 27 Anion Gap 12 BUN 49 H Creatinine 1.5 H Creat Clearance w eGFR 46.13 POC Glucometer 179 Random Glucose 165 H Calcium 8.5 Total Bilirubin 2.6 H AST 42 H D ALT 40 D Alkaline Phosphatase 79 Total Protein 6.0 L Albumin 2.7 L Ur Random Sodium Ur Random Potassium Ur Random Chloride Urine Creatinine Active Medications Generic Name Dose Route Start Last Admin Trade Name Freq PRN Reason Stop Dose Admin Atorvastatin Calcium 20 mg 11/28/17 22:00 11/28/17 22:09 Lipitor - PO 20 mg HS CHINYERE Administration Sodium Chloride 1,000 mls @ 75 mls/hr 11/28/17 12:45 11/28/17 13:11 Normal Saline - IV 75 mls/hr ASDIR CHINYERE Administration Insulin Aspart 1 vial 11/28/17 16:30 11/29/17 06:10 Novolog Vial Sliding Scale - SQ 2 unit TIDAC CHINYERE Administration Protocol Pneumococcal 13-Valent Conj Vacc 0.5 ml 11/29/17 10:00 Prevnar 13 Syringe - IM 11/29/17 10:01 .ONCE ONE Prednisone 30 mg 11/28/17 10:00 11/28/17 11:45 Deltasone - PO 30 mg DAILY CHINYERE Administration Vancomycin HCl 125 mg 11/29/17 00:00 11/29/17 05:57 Vancomycin Oral Solution PO Not Given Q6HPO CHINYERE Warfarin Sodium 5 mg 11/28/17 18:00 11/28/17 17:37 Coumadin - PO 5 mg DAILY@1800 CHINYERE Administration Imaging: CT abdomen/ pelvis showed: hepatic steatosis, small pericardial effusion, cholelithiasis without evidence cholecystitis. Cardiac ECHO: severe dilation left atrium and right atrium, with atrial septal aneurysmal. Severe MR, moderate to severe TR. LVEF is normal. No pericardial effusion noted. ASSESSMENT/PLAN: Patient is a 72 year old male with history of Gout, DM, HLD, Afib on Coumadin presents with complaint of B/L lower extremity pain. Admitted for cellulitis vs gout flare up. Gout flare-up -Likely gout d/t patient's history of gout, recently run out of Colchicine. No fluctuance or erythema of the joints appreciated that could suggest gout. -Prednisone 20mg today. -Potassium citrate 20meq PO daily -No Colchicine or NSAIDs d/t patient's ROSARIO -As per discussion with ID, will advise patient of importance to follow up with [employer] outpatient. ROSARIO -Creatinine 1.5 today -Nephrology consult (Dr. Gabriel) appreciated: IVNS lowered to 60mL/hr. FeNa was 0.1% indicating prerenal etiology, likely secondary to the diarrhea. -F/U Renal US -F/U Bladder US Leukocytosis -Unclear etiology. However unlikely d/t cellulitis as there is no erythema of inflammation. -Patient admits liquidy brown diarrhea with mucus overnight. ?C. diff infection leading to flare up of gout -F/U C.diff cultures -F/U Stool cultures -Blood cultures preliminary negative for growth at 24 hours -Urine cultures- Negative for growth. -ID consult (Dr. Galvez) appreciated: Will hold Vancomycin PO until C.diff studies and cultures return. Troponinemia -Trending down 0.15 -> 0.12 -> 0.10 -EKG showed: Afib with ocassional ventricular paced complexes, RBBB, left posterior fascicular block. T wave abnormality seen in anterior-septal leads. -Likely due to patient's acute renal failure. Will follow ECHO to rule out heart failure leading to demand ischemia. -Cardiac ECHO shows severe dilation left atrium and right atrium, with atrial septal aneurysmal. Severe MR, moderate to severe TR. LVEF is normal. No pericardial effusion noted. Afib -Coumadin 5 mg PO QD HTN -Hold Olmesartan-HCTZ 40-25. HLD -Atorvastatin 20mg PO HS DM -Hold Metformin 500mg PO QD -ISS -BGM FEN -IVNS at 60mL/hr -Will follow CMP -Diabetic diet Prophylaxis -On Warfarin 5mg PO QD Disposition -Continue care in medical-surgical floor. Visit type - Emergency Visit Emergency Visit: Yes ED Registration Date: 11/27/17 Care time: The patient presented to the Emergency Department on the above date and was hospitalized for further evaluation of their emergent condition. - New Patient This patient is new to me today: No - Critical Care Critical Care patient: No - Discharge Referral Referred to [facility] No
--- NOTE | 2017-11-29 08:35 | PN ---
Teaching Attending Note Name of Resident: Tao Melendrez ATTENDING PHYSICIAN STATEMENT I saw and evaluated the patient. I reviewed the resident's note and discussed the case with the resident. I agree with the resident's findings and plan as documented. SUBJECTIVE: Patient is a 72 year old man with a history of HTN, HLD, DM, AFib, Gout, Chronic back pain, Pacemaker and Obesity who presents for evaluation of 1 week of generalized weakness. Patient is c/o having nausea and having diarrhea. OBJECTIVE: Vital Signs Temperature 98.5 F 11/29/17 06:00 Pulse Rate 89 11/29/17 06:00 Respiratory Rate 18 11/29/17 06:00 Blood Pressure 123/66 11/29/17 06:00 O2 Sat by Pulse Oximetry (%) 98 11/28/17 21:00 CBCD WBC 16.0 K/mm3 (4.0-10.0) H 11/29/17 05:30 RBC 3.65 M/mm3 (4.00-5.60) L 11/29/17 05:30 Hgb 10.9 GM/dL (11.7-16.9) L 11/29/17 05:30 Hct 33.1 % (35.4-49) L 11/29/17 05:30 MCV 90.6 fl (80-96) 11/29/17 05:30 MCHC 33.0 g/dl (32.0-35.9) 11/29/17 05:30 RDW 16.2 % (11.9-15.9) H 11/29/17 05:30 Plt Count 271 K/MM3 (134-434) 11/29/17 05:30 MPV 9.5 fl (7.5-11.1) 11/29/17 05:30 CMP Sodium 142 mmol/L (136-145) 11/29/17 05:30 Potassium 3.7 mmol/L (3.5-5.1) 11/29/17 05:30 Chloride 103 mmol/L (98-107) 11/29/17 05:30 Carbon Dioxide 27 mmol/L (21-32) 11/29/17 05:30 Anion Gap 12 MMOL/L (8-16) 11/29/17 05:30 BUN 49 mg/dL (7-18) H 11/29/17 05:30 Creatinine 1.5 mg/dL (0.7-1.3) H 11/29/17 05:30 Creat Clearance w eGFR 46.13 (>60) 11/29/17 05:30 Random Glucose 165 mg/dL (74-106) H 11/29/17 05:30 Calcium 8.5 mg/dL (8.5-10.1) 11/29/17 05:30 Total Bilirubin 2.6 mg/dL (0.2-1.0) H 11/29/17 05:30 AST 42 U/L (15-37) H D 11/29/17 05:30 ALT 40 U/L (12-78) D 11/29/17 05:30 Alkaline Phosphatase 79 U/L (45-117) 11/29/17 05:30 Total Protein 6.0 g/dl (6.4-8.2) L 11/29/17 05:30 Albumin 2.7 g/dl (3.4-5.0) L 11/29/17 05:30 CARDIAC ENZYMES Creatine Kinase 280 IU/L (39-308) 11/27/17 22:10 Troponin I 0.10 ng/ml (0.00-0.05) H 11/28/17 07:08 Current Medications Generic Name Dose Route Start Last Admin Trade Name Irineoq PRN Reason Stop Dose Admin Atorvastatin Calcium 20 mg 11/28/17 22:00 11/28/17 22:09 Lipitor - PO 20 mg HS CHINYERE Administration Sodium Chloride 1,000 mls @ 75 mls/hr 11/28/17 12:45 11/28/17 13:11 Normal Saline - IV 75 mls/hr ASDIR CHINYERE Administration Insulin Aspart 1 vial 11/28/17 16:30 11/29/17 06:10 Novolog Vial Sliding Scale - SQ 2 unit TIDAC CHINYERE Administration Protocol Pneumococcal 13-Valent Conj Vacc 0.5 ml 11/29/17 10:00 Prevnar 13 Syringe - IM 11/29/17 10:01 .ONCE ONE Prednisone 30 mg 11/28/17 10:00 11/28/17 11:45 Deltasone - PO 30 mg DAILY CHINYERE Administration Vancomycin HCl 125 mg 11/29/17 00:00 11/29/17 05:57 Vancomycin Oral Solution PO Not Given Q6HPO [facility] Warfarin Sodium 5 mg 11/28/17 18:00 11/28/17 17:37 Coumadin - PO 5 mg DAILY@1800 CHINYERE Administration ecg: afib, rbbb, 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 mibi 03/2016: no ischemia, nl lvef PE: per resident's note ASSESSMENT AND PLAN: 72 y/o man with h/o DM , A fib, HTN, HLP, s/p PPM , chronic back pain, gout, brain mass s/p resection,who presented with b/l feet pain. # Polyarticular gout: patient's symptoms are improving . continue steroid. hold colchicine since Elevated creatinine , No Nsaids as well # Leukocytosis most likely due to steroids . cxray and UA are not suggestive of infection. hold off Abx in setting of unclear source. follow urine and blood cx. # ROSARIO : most likely due to diuretics hold Losartan, kidneys appear unremarkable on US # Trop leak: most likely due to demand ischemia, EKG with TWI in anteroseptal and lateral leads. no old EKG to compare to. No CP . echo, to explore the pericardial effusion seen on CT # DM, HTN: will confirm home dose meds. will contact PCP . # A fib: will confirm meds and cont coumadin DVTpx : on coumadin
[2017-11-29 09:00] LABS: BILIRUBIN,DIRECT 1.9 mg/dL (0.0-0.2)
[2017-11-29] MEDS ORDERED: PNEUMOC 13-VAL CONJ-DIP CRM/PF 0.5 ML DISP.SYRIN IM ONE (10:00)
[2017-11-29] MEDS ORDERED: predniSONE 20 MG TABLET (UD) PO SCH (10:03)
[2017-11-29] MEDS: POTASSIUM CITRATE/CITRIC ACID 2 MEQ/ML ML PO SCH (10:54)
[2017-11-29] MEDS: predniSONE 20 MG TABLET (UD) PO SCH (10:54)
--- NOTE | 2017-11-29 12:23 | PN ---
Progress Note, Physician History of Present Illness: Pt seen and examined at bedside. He is awake and alert. He feels better than yesterday. He denies shortness of breath. He still has diarrhea. He denies hematuria. - Current Medication List Current Medications: Active Medications Atorvastatin Calcium (Lipitor -) 20 mg PO HS [facility] Last Admin: 11/28/17 22:09 Dose: 20 mg Sodium Chloride (Normal Saline -) 1,000 mls @ 75 mls/hr IV ASDIR [facility] Last Admin: 11/28/17 13:11 Dose: 75 mls/hr Insulin Aspart (Novolog Vial Sliding Scale -) 1 vial SQ TIDAC [facility]; Protocol Last Admin: 11/29/17 06:10 Dose: 2 unit Potassium Citrate/Citric Acid (Cytra-K -) 20 meq PO DAILY [facility] Last Admin: 11/29/17 10:54 Dose: Not Given Prednisone (Deltasone -) 20 mg PO DAILY [facility] Vancomycin HCl (Vancomycin Oral Solution) 125 mg PO Q6HPO [facility] Last Admin: 11/29/17 05:57 Dose: Not Given Warfarin Sodium (Coumadin -) 5 mg PO DAILY@1800 [facility] Last Admin: 11/28/17 17:37 Dose: 5 mg - Objective Vital Signs: Vital Signs Temperature 98.5 F 11/29/17 06:00 Pulse Rate 103 H 11/29/17 09:27 Respiratory Rate 22 11/29/17 09:27 Blood Pressure 133/83 11/29/17 09:27 O2 Sat by Pulse Oximetry (%) 98 11/29/17 09:00 Constitutional: Yes: Calm Eyes: Yes: Conjunctiva Clear HENT: Yes: Atraumatic Cardiovascular: Yes: S1, S2 Respiratory: Yes: CTA Bilaterally Gastrointestinal: Yes: Soft, Abdomen, Obese Genitourinary: Yes: WNL Musculoskeletal: Yes: WNL Edema: No Integumentary: Yes: Venous Stasis Changes Neurological: Yes: Oriented Psychiatric: Yes: Oriented Labs: CBC, BMP 11/29/17 05:30 11/29/17 05:30 INR, PTT INR 2.19 (0.83-1.09) H 11/27/17 15:50 Problem List - Problems (1) Azotemia Code(s): R79.89 - OTHER SPECIFIED ABNORMAL FINDINGS OF BLOOD CHEMISTRY (2) Sepsis Code(s): A41.9 - SEPSIS, UNSPECIFIED ORGANISM Qualifiers: Sepsis type: sepsis due to unspecified organism Qualified Code(s): A41.9 - Sepsis, unspecified organism Assessment/Plan Current Medications Generic Name Dose Route Start Last Admin Trade Name Erica PRN Reason Stop Dose Admin Atorvastatin Calcium 20 mg 11/28/17 22:00 11/28/17 22:09 Lipitor - PO 20 mg HS [facility] Administration Sodium Chloride 1,000 mls @ 75 mls/hr 11/28/17 12:45 11/28/17 13:11 Normal Saline - IV 75 mls/hr ASDIR [facility] Administration Insulin Aspart 1 vial 11/28/17 16:30 11/29/17 06:10 Novolog Vial Sliding Scale - SQ 2 unit TIDAC [facility] Administration Protocol Potassium Citrate/Citric Acid 20 meq 11/29/17 10:00 11/29/17 10:54 Cytra-K - PO Not Given DAILY [facility] Prednisone 20 mg 11/29/17 10:03 Deltasone - PO DAILY [facility] Vancomycin HCl 125 mg 11/29/17 00:00 11/29/17 05:57 Vancomycin Oral Solution PO Not Given Q6HPO [facility] Warfarin Sodium 5 mg 11/28/17 18:00 11/28/17 17:37 Coumadin - PO 5 mg DAILY@1800 [facility] Administration Impression 1. Azotemia 2. diarrhea 3. gout 4. ileus 5. pericardial effusion 6. DM Plan - cont with fluids, can decrease rate - repeat labs in am - urine sodium was low, likely pre-renal disease - steroids with taper for gout - echo to evaluate effusion - renal ultrasound - avoid nsaids - likely pre-renal component from diarrhea
--- NOTE | 2017-11-29 12:24 | ECHO ---
Name: GILDA TREJO Exam:Adult Echocardiogram Study Date: 11/29/2017 08:22 AM Age: 72 yrs Reason For Study: EFFUSION Height: 63 in Weight: 289 lb BSA: 2.3 m2 MMode/2D Measurements & Calculations IVSd: 1.0 cm Ao root diam: 3.5 cm LVIDd: 5.9 cm LA dimension: 5.9 cm LVIDs: 3.8 cm LVPWd: 1.1 cm EDV(Teich): 173.0 ml TAPSE: 1.5 cm ESV(Teich): 60.6 ml RV S Jose: 8.8 cm/sec Doppler Measurements & Calculations MV E max jose: 79.0 cm/sec Ao V2 max: 120.8 cm/sec MV A max jose: 21.7 cm/sec Ao max P.8 mmHg MV E/A: 3.6 MV dec time: 0.20 sec LV V1 max P.3 mmHg MR max jose: 413.7 cm/sec LV V1 max: 56.2 cm/sec MR max P.2 mmHg TR max jose: 282.3 cm/sec PI end-d jose: 61.9 cm/sec TR max P.1 mmHg Med Peak E' Jose: 6.6 cm/sec Med E/e': 11.9 Lat Peak E' Jose: 6.5 cm/sec Lat E/e': 12.2 Procedure A two-dimensional transthoracic echocardiogram with color flow and Doppler was performed. The study w as technically difficult with many images being suboptimal in quality. Left Ventricle The left ventricle is mildly dilated. The left ventricular ejection fraction is normal. Regional wall motion abnormalities cannot be excluded due to limited visualization. Right Ventricle The right ventricle is not well visualized. There is a pacemaker lead in the right ventricle. Atria The left atrium is severely dilated. The right atrium is severely dilated. The atrial septum is aneur ysmal. Mitral Valve There is mild mitral valve thickening. There is no mitral valve stenosis. There is severe mitral regurgitation. Tricuspid Valve There is mild tricuspid valve thickening. There is no tricuspid stenosis. There is moderate to severe tricuspid regurgitation. Right ventricular systolic pressure is normal. Aortic Valve The aortic valve is normal in structure and function. No hemodynamically significant valvular aortic stenosis. No aortic regurgitation is present. Pulmonic Valve The pulmonic valve is not well visualized. Great Vessels The aortic root is normal size. Pericardium/Pleura There is no pericardial effusion. Interpretation Summary The left ventricle is mildly dilated. The left atrium is severely dilated. The right atrium is severely dilated. The left ventricular ejection fraction is normal. There is severe mitral regurgitation. There is moderate to severe tricuspid regurgitation. Right ventricular systolic pressure is normal. The atrial septum is aneurysmal. The right ventricle is not well visualized. There is a pacemaker lead in the right ventricle. The study was technically difficult with many images being suboptimal in quality. Regional wall motion abnormalities cannot be excluded due to limited visualization. MD Dylan Sanders 11/29/2017 12:23 PM
[2017-11-29] MEDS: SODIUM CHLORIDE 1,000 ML IV SCH (13:36)
--- NOTE | 2017-11-29 14:01 | PN ---
Progress Note (short form) - Note Progress Note: clear mucus per rectum leg pain improved, erythema resolved Vital Signs Period Temp Pulse Resp BP Sys/Luke Pulse Ox Last 24 Hr 98 F-98.5 F 73-103 16-22 110-157/56-88 98-98 cor-rrr lungs clear abd distended, nt ext no erythema, no swelling CBC, BMP 11/29/17 05:30 18 05:30 CT SCAN- gall stones, fatty liver a/p leukocytosis- improved diarrhea no colitis on ct scan bilateral foot pain- not classic for gout f/u stool studies rheum eval as outpt
[2017-11-29] MEDS: WARFARIN NA 5 MG TABLET (UD) PO SCH (18:44)
[2017-11-29] MEDS: ATORVASTATIN CA 20 MG TABLET (FP) PO SCH (21:16)
[2017-11-30] MEDS: INSULIN SLIDING SCALE (NOVOLOG) 1 VIAL SQ SCH ×3 (06:01→18:43)
[2017-11-30 06:27] LABS: HEMATOCRIT 33.4 % (35.4-49); HEMOGLOBIN 10.9 GM/dL (11.7-16.9); MCH 29.6 pg (25.7-33.7); MCHC 32.6 g/dl (32.0-35.9); MEAN CELL VOLUME 90.9 fl (80-96); MEAN PLT VOLUME 9.2 fl (7.5-11.1); PLATELET COUNT 295 K/MM3 (134-434); RBC 3.68 M/mm3 (4.00-5.60); RDW 16.8 % (11.9-15.9); WHITE BLOOD COUNT 11.9 K/mm3 (4.0-10.0)
[2017-11-30 07:05] LABS: CHLORIDE 102 mmol/L (98-107); POTASSIUM 3.8 mmol/L (3.5-5.1); SODIUM 139 mmol/L (136-145)
[2017-11-30 07:14] LABS: ALBUMIN 2.6 g/dl (3.4-5.0); ALK PHOS 83 U/L (45-117); ANION GAP 8 MMOL/L (8-16); BILIRUBIN,TOTAL 1.5 mg/dL (0.2-1.0); BLOOD UREA NITROGEN 55 mg/dL (7-18); CALCIUM 8.2 mg/dL (8.5-10.1); CO2 29 mmol/L (21-32); CREATININE 1.6 mg/dL (0.7-1.3); GLUCOSE,RANDOM 140 mg/dL (74-106); SGOT/AST 27 U/L (15-37); SGPT/ALT 35 U/L (13-61)
[2017-11-30] MEDS ORDERED: PT OWN MED DRAWER 7, Y5N ONE (09:56)
[2017-11-30] MEDS ORDERED: predniSONE 10 MG TABLET (UD) PO SCH (10:00)
[2017-11-30] MEDS: POTASSIUM CITRATE/CITRIC ACID 2 MEQ/ML ML PO SCH (10:03)
[2017-11-30] MEDS ORDERED: ONDANSETRON 4 MG/2 ML VIAL IVPUSH ONE (11:31)
[2017-11-30] MEDS: SODIUM CHLORIDE 1,000 ML IV SCH ×3 (11:54→22:30)
--- NOTE | 2017-11-30 12:46 | PN ---
Progress Note, Physician History of Present Illness: Pt seen and examined at bedside. He is awake and alert. He still has diarrhea. He does not have much appetite and is only eating jello. He says that the hematuria has stopped. - Current Medication List Current Medications: Active Medications Atorvastatin Calcium (Lipitor -) 20 mg PO HS [facility] Last Admin: 11/29/17 21:16 Dose: 20 mg Sodium Chloride (Normal Saline -) 1,000 mls @ 60 mls/hr IV ASDIR [facility] Last Admin: 11/30/17 11:54 Dose: 60 mls/hr Insulin Aspart (Novolog Vial Sliding Scale -) 1 vial SQ TIDAC [facility]; Protocol Last Admin: 11/30/17 11:53 Dose: 2 unit Potassium Citrate/Citric Acid (Cytra-K -) 20 meq PO DAILY [facility] Last Admin: 11/30/17 10:03 Dose: 20 meq Prednisone (Deltasone -) 10 mg PO DAILY [facility] Last Admin: 11/30/17 10:04 Dose: 10 mg Warfarin Sodium (Coumadin -) 5 mg PO DAILY@1800 [facility] Last Admin: 11/29/17 18:44 Dose: 5 mg - Objective Vital Signs: Vital Signs Temperature 97.7 F 11/30/17 06:00 Pulse Rate 98 H 11/30/17 06:00 Respiratory Rate 17 11/30/17 06:00 Blood Pressure 133/74 11/30/17 06:00 O2 Sat by Pulse Oximetry (%) 93 L 11/29/17 21:00 Constitutional: Yes: Calm Eyes: Yes: Conjunctiva Clear HENT: Yes: Atraumatic Neck: Yes: Supple Cardiovascular: Yes: S1, S2 Respiratory: Yes: CTA Bilaterally Gastrointestinal: Yes: Soft, Abdomen, Obese Genitourinary: Yes: WNL Musculoskeletal: Yes: WNL Edema: No Integumentary: Yes: Venous Stasis Changes Neurological: Yes: Oriented Psychiatric: Yes: Oriented Labs: CBC, BMP 11/30/17 05:30 11/30/17 05:30 INR, PTT INR 2.19 (0.83-1.09) H 11/27/17 15:50 Problem List - Problems (1) Azotemia Code(s): R79.89 - OTHER SPECIFIED ABNORMAL FINDINGS OF BLOOD CHEMISTRY (2) Sepsis Code(s): A41.9 - SEPSIS, UNSPECIFIED ORGANISM Qualifiers: Sepsis type: sepsis due to unspecified organism Qualified Code(s): A41.9 - Sepsis, unspecified organism Assessment/Plan Current Medications Generic Name Dose Route Start Last Admin Trade Name Erica PRN Reason Stop Dose Admin Atorvastatin Calcium 20 mg 11/28/17 22:00 11/29/17 21:16 Lipitor - PO 20 mg HS [facility] Administration Sodium Chloride 1,000 mls @ 60 mls/hr 11/29/17 12:23 11/30/17 11:54 Normal Saline - IV 60 mls/hr ASDIR [facility] Administration Insulin Aspart 1 vial 11/28/17 16:30 11/30/17 11:53 Novolog Vial Sliding Scale - SQ 2 unit TIDAC [facility] Administration Protocol Potassium Citrate/Citric Acid 20 meq 11/29/17 10:00 11/30/17 10:03 Cytra-K - PO 20 meq DAILY [facility] Administration Prednisone 10 mg 11/30/17 10:00 11/30/17 10:04 Deltasone - PO 10 mg DAILY [facility] Administration Warfarin Sodium 5 mg 11/28/17 18:00 11/29/17 18:44 Coumadin - PO 5 mg DAILY@1800 [facility] Administration Impression 1. Azotemia 2. diarrhea 3. gout 4. ileus 5. pericardial effusion 6. DM Plan - renal workup is in progress - monitor creatinine - cont with fluids - check echo for effusion - repeat ua - renal ultrasound - avoid nsaids - likely pre-renal component from diarrhea - discussed with medical team
--- NOTE | 2017-11-30 13:27 | PN ---
Teaching Attending Note Name of Resident: Tao Melendrez ATTENDING PHYSICIAN STATEMENT I saw and evaluated the patient. I reviewed the resident's note and discussed the case with the resident. I agree with the resident's findings and plan as documented. SUBJECTIVE: Patient is comfortable continues to have diarrhea and feeling nauseas, unable to eat. OBJECTIVE: Vital Signs Temperature 97.7 F 11/30/17 06:00 Pulse Rate 98 H 11/30/17 06:00 Respiratory Rate 17 11/30/17 09:00 Blood Pressure 133/74 11/30/17 06:00 O2 Sat by Pulse Oximetry (%) 95 11/30/17 09:00 CBCD WBC 11.9 K/mm3 (4.0-10.0) H 11/30/17 05:30 RBC 3.68 M/mm3 (4.00-5.60) L 11/30/17 05:30 Hgb 10.9 GM/dL (11.7-16.9) L 11/30/17 05:30 Hct 33.4 % (35.4-49) L 11/30/17 05:30 MCV 90.9 fl (80-96) 11/30/17 05:30 MCHC 32.6 g/dl (32.0-35.9) 11/30/17 05:30 RDW 16.8 % (11.9-15.9) H 11/30/17 05:30 Plt Count 295 K/MM3 (134-434) 11/30/17 05:30 MPV 9.2 fl (7.5-11.1) 11/30/17 05:30 CMP Sodium 139 mmol/L (136-145) 11/30/17 05:30 Potassium 3.8 mmol/L (3.5-5.1) 11/30/17 05:30 Chloride 102 mmol/L (98-107) 11/30/17 05:30 Carbon Dioxide 29 mmol/L (21-32) 11/30/17 05:30 Anion Gap 8 MMOL/L (8-16) 11/30/17 05:30 BUN 55 mg/dL (7-18) H 11/30/17 05:30 Creatinine 1.6 mg/dL (0.7-1.3) H 11/30/17 05:30 Creat Clearance w eGFR 42.82 (>60) 11/30/17 05:30 Random Glucose 140 mg/dL (74-106) H 11/30/17 05:30 Calcium 8.2 mg/dL (8.5-10.1) L 11/30/17 05:30 Total Bilirubin 1.5 mg/dL (0.2-1.0) H 11/30/17 05:30 AST 27 U/L (15-37) 11/30/17 05:30 ALT 35 U/L (13-61) 11/30/17 05:30 Alkaline Phosphatase 83 U/L (45-117) 11/30/17 05:30 Total Protein 6.0 g/dl (6.4-8.2) L 11/30/17 05:30 Albumin 2.6 g/dl (3.4-5.0) L 11/30/17 05:30 CARDIAC ENZYMES Creatine Kinase 280 IU/L (39-308) 11/27/17 22:10 Troponin I 0.10 ng/ml (0.00-0.05) H 11/28/17 07:08 Current Medications Generic Name Dose Route Start Last Admin Trade Name Irineoq PRN Reason Stop Dose Admin Atorvastatin Calcium 20 mg 11/28/17 22:00 11/29/17 21:16 Lipitor - PO 20 mg HS [facility] Administration Sodium Chloride 1,000 mls @ 75 mls/hr 11/30/17 12:46 Normal Saline - IV ASDIR [facility] Insulin Aspart 1 vial 11/28/17 16:30 11/30/17 11:53 Novolog Vial Sliding Scale - SQ 2 unit TIDAC [facility] Administration Protocol Potassium Citrate/Citric Acid 20 meq 11/29/17 10:00 11/30/17 10:03 Cytra-K - PO 20 meq DAILY [facility] Administration Prednisone 10 mg 11/30/17 10:00 11/30/17 10:04 Deltasone - PO 10 mg DAILY [facility] Administration Warfarin Sodium 5 mg 11/28/17 18:00 11/29/17 18:44 Coumadin - PO 5 mg DAILY@1800 [facility] Administration Home Medications Medication Instructions Recorded Colchicine 0.6 mg PO BID PRN 11/28/17 Furosemide 40 mg PO DAILY 11/28/17 Methylprednisolone [Medrol Dose See Taper PO DAILY 11/28/17 Morgan] Olmesartan/Hydrochlorothiazide 1 each PO DAILY 09/11/18 [Olmesartan-Hctz 40-25 mg Tab] Oxycodone HCl 10 mg PO QID 11/28/17 Simvastatin 40 mg PO DAILY 11/28/17 Warfarin Na [Coumadin] 10 mg PO DAILY 11/28/17 metFORMIN HCL [Metformin HCl] 500 mg PO DAILY 11/28/17 ecg: afib, rbbb, 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 mibi 03/2016: no ischemia, nl lvef PE: per resident's note Microbiology 11/27/17 16:10 Blood - Peripheral Venous Blood Culture - Preliminary NO GROWTH OBTAINED AFTER 96 HOURS, INCUBATION TO CONTINUE FOR 1 DAYS. 11/27/17 15:50 Blood - Peripheral Venous Blood Culture - Preliminary NO GROWTH OBTAINED AFTER 96 HOURS, INCUBATION TO CONTINUE FOR 1 DAYS. 11/29/17 11:30 Stool Clostridium difficile Antigen (CLAUDIA) - Final 11/29/17 11:30 Stool Clostridium difficile Toxin Assay - Final 11/27/17 16:00 Urine - Urine - Catheterized Urine Culture - Final NO GROWTH OBTAINED Laboratory Tests 11/27/17 15:50 INR 2.19 H ASSESSMENT AND PLAN: 72 y/o man with h/o DM , A fib, HTN, HLP, s/p PPM , chronic back pain, gout, brain mass s/p resection,who presented with b/l feet pain. # A fib:On coumadin continue will repeat PT,INR # Polyarticular gout imrpoved , last dayof steroid id today . hold colchicine since Elevated creatinine , No Nsaids as well # Leukocytosis imrpoving ,most likely due to steroids . cxray and UA are not suggestive of infection. No antibiotic for now , since no source of infection is noted. follow urine and blood cx. # ROSARIO : most likely due to diuretics hold Losartan, kidneys appear unremarkable on US # Trop leak: most likely due to demand ischemia, EKG with TWI in anteroseptal and lateral leads. no old EKG to compare to. No CP . echo, to explore the pericardial effusion seen on CT # DM, HTN: continue home meds. . DVTpx : on coumadin
--- NOTE | 2017-11-30 13:55 | PN ---
Physical Exam: SUBJECTIVE: Patient seen and examined at bedside this morning. He admits significant improvement in B/L lower extremity pain and active range of motion. Admits nausea, dry heaving and three episodes liquid-mucoid diarrhea overnight. Denies fevers, chills, chest pain, palpitations, shortness of breath, cough. OBJECTIVE: Vital Signs Period Temp Pulse Resp BP Sys/Luke Pulse Ox Last 24 Hr 97.6 F-97.8 F 74-98 17-18 133-153/70-78 93-95 GENERAL: The patient is awake, alert, and fully oriented, in mild distress. HEAD: Normal with no signs of trauma. EYES: PERRL, extraocular movements intact, sclera anicteric, conjunctiva clear. ENT: Oropharynx clear without exudates, moist mucous membranes. NECK: Trachea midline, full range of motion, supple. LUNGS: Breath sounds equal, clear to auscultation bilaterally, no wheezes, no accessory muscle use. HEART: Regular rate and rhythm, S1, S2 without murmur, rub or gallop appreciated. ABDOMEN: Obese abdomen. Distended. Soft, nontender to palpation, normoactive bowel sounds, no guarding, no rebound. EXTREMITIES: 1+ DP pulses B/L. 2+ radial pulses B/L. Warm to touch. Tender to deeper palpation. Pain to palpation of B/L knees at joint line. NEUROLOGICAL: Cranial nerves II through XII grossly intact. Normal speech. Upper extremity strength 5/5 B/L in flexion extension, abduction, adduction. Lower extremity strength limited by pain. Hip flexion, extension 5/5 B/L. Knee flexion and extension 5/5 B/L. Dorsiflexion and Plantarflexion 5/5 B/L. PSYCH: Appropriate mood and affect upon my exam today. SKIN: Warm. Discoloration hyperpigmentation in B/L lower extremities at level of medial/ lateral malleolus extending superiorly 5-6 inches B/L. Laboratory Results - last 24 hr 11/29/17 11/30/17 11/30/17 13:32 05:30 05:30 WBC 11.9 H RBC 3.68 L Hgb 10.9 L Hct 33.4 L MCV 90.9 MCH 29.6 MCHC 32.6 RDW 16.8 H Plt Count 295 MPV 9.2 Sodium 139 Potassium 3.8 Chloride 102 Carbon Dioxide 29 Anion Gap 8 BUN 55 H Creatinine 1.6 H Creat Clearance w eGFR 42.82 POC Glucometer 194 Random Glucose 140 H Calcium 8.2 L Total Bilirubin 1.5 H AST 27 ALT 35 Alkaline Phosphatase 83 Total Protein 6.0 L Albumin 2.6 L 11/30/17 11/30/17 05:52 11:49 WBC RBC Hgb Hct MCV MCH MCHC RDW Plt Count MPV Sodium Potassium Chloride Carbon Dioxide Anion Gap BUN Creatinine Creat Clearance w eGFR POC Glucometer 143 184 Random Glucose Calcium Total Bilirubin AST ALT Alkaline Phosphatase Total Protein Albumin Active Medications Generic Name Dose Route Start Last Admin Trade Name Freq PRN Reason Stop Dose Admin Atorvastatin Calcium 20 mg 11/28/17 22:00 11/29/17 21:16 Lipitor - PO 20 mg HS [facility] Administration Sodium Chloride 1,000 mls @ 75 mls/hr 11/30/17 12:46 Normal Saline - IV ASDIR [facility] Insulin Aspart 1 vial 11/28/17 16:30 11/30/17 11:53 Novolog Vial Sliding Scale - SQ 2 unit TIDAC [facility] Administration Protocol Potassium Citrate/Citric Acid 20 meq 11/29/17 10:00 11/30/17 10:03 Cytra-K - PO 20 meq DAILY [facility] Administration Prednisone 10 mg 11/30/17 10:00 11/30/17 10:04 Deltasone - PO 10 mg DAILY [facility] Administration Warfarin Sodium 5 mg 11/28/17 18:00 11/29/17 18:44 Coumadin - PO 5 mg DAILY@1800 [facility] Administration Imaging: CT abdomen/ pelvis showed: hepatic steatosis, small pericardial effusion, cholelithiasis without evidence cholecystitis. Cardiac ECHO: severe dilation left atrium and right atrium, with atrial septal aneurysmal. Severe MR, moderate to severe TR. LVEF is normal. No pericardial effusion noted. ASSESSMENT/PLAN: Patient is a 72 year old male with history of Gout, DM, HLD, Afib on Coumadin presents with complaint of B/L lower extremity pain. Admitted for cellulitis vs gout flare up. Gout flare-up -Likely gout d/t patient's history of gout, recently run out of Colchicine. No fluctuance or erythema of the joints appreciated that could suggest gout. -Prednisone taper 10mg today. Last day of steroids. -Potassium citrate 20meq PO daily -No Colchicine or NSAIDs d/t patient's ROSARIO -As per discussion with ID, will advise patient of importance to follow up with [employer] outpatient. ROSARIO -Creatinine 1.6 today. Baseline Cr at 1.2 as per BMP from Dr. Loco. -Nephrology consult (Dr. Gabriel) appreciated: IVNS increased to 75mL/hr. Will follow Cr, and repeat UA. FeNa was 0.1% indicating prerenal etiology, likely secondary to the diarrhea. -Bladder US shows no intrinsic bladder abnormalities, without significant post void residual volume. -F/U Renal US -F/U Antinuclear AB, C-ANCA, P-ANCA, atypical P-anca, Antiglomerular basement AB , ds-DNA AB, Myeloperoxidase AB, Proteinase 3, HIPOLITO M-spike. -F/U Hepatitis A/B/C serology Leukocytosis -Improving. WBC 11.9 today (16.0 yesterday) -Unclear etiology. However unlikely d/t cellulitis as there is no erythema of inflammation. -C.diff cultures- negative for C.diff -F/U Stool cultures -Blood cultures preliminary negative for growth at 48 hours -Urine cultures- Negative for growth. -ID consult (Dr. Galvez) appreciated. Nausea -Patient nauseous, and dry heaving. Not able to tolerate his breakfast this morning. -One time dose of Zofran 4mg IV ordered Troponinemia -Trended down 0.15 -> 0.12 -> 0.10 -EKG showed: Afib with ocassional ventricular paced complexes, RBBB, left posterior fascicular block. T wave abnormality seen in anterior-septal leads. -Likely due to patient's acute renal failure. -Cardiac ECHO noted no pericardial effusion Afib -Coumadin 5 mg PO QD HTN -Hold Olmesartan-HCTZ 40-25. HLD -Atorvastatin 20mg PO HS DM -Hold Metformin 500mg PO QD -ISS -BGM FEN -IVNS at 60mL/hr -Will follow CMP -Diabetic diet Prophylaxis -On Warfarin 5mg PO QD Disposition -Continue care in medical-surgical floor. Visit type - Emergency Visit Emergency Visit: Yes ED Registration Date: 11/27/17 Care time: The patient presented to the Emergency Department on the above date and was hospitalized for further evaluation of their emergent condition. - New Patient This patient is new to me today: No - Critical Care Critical Care patient: No - Discharge Referral Referred to [facility] Med P.C.: No
[2017-11-30 14:23] VITALS: BMI 36.1
--- NOTE | 2017-11-30 18:08 | PN ---
Progress Note (short form) - Note Progress Note: continued nausea unable to eat Vital Signs Period Temp Pulse Resp BP Sys/Luke Pulse Ox Last 24 Hr 97.6 F-97.8 F 75-98 17-20 133-153/70-98 93-95 cor-rrr lungs decreased bs at bases abd protuberant, nt ext no edema CBC, BMP 11/30/17 05:30 11/30/17 05:30 Microbiology 11/27/17 16:10 Blood - Peripheral Venous Blood Culture - Preliminary NO GROWTH OBTAINED AFTER 72 HOURS, INCUBATION TO CONTINUE FOR 2 DAYS. 11/27/17 15:50 Blood - Peripheral Venous Blood Culture - Preliminary NO GROWTH OBTAINED AFTER 72 HOURS, INCUBATION TO CONTINUE FOR 2 DAYS. 11/29/17 11:30 Stool Clostridium difficile Antigen (CLAUDIA) - Final 11/29/17 11:30 Stool Clostridium difficile Toxin Assay - Final 11/27/17 16:00 Urine - Urine - Catheterized Urine Culture - Final NO GROWTH OBTAINED a/p leukocytosis- resolved diarrhea no colitis on ct scan bilateral foot pain- resolved consider gi eval for persistent nausea please call back if needed Problem List - Problems (1) Leukocytosis Code(s): D72.829 - ELEVATED WHITE BLOOD CELL COUNT, UNSPECIFIED (2) Diarrhea Code(s): R19.7 - DIARRHEA, UNSPECIFIED (3) Foot pain, bilateral Code(s): M79.671 - PAIN IN RIGHT FOOT; M79.672 - PAIN IN LEFT FOOT
[2017-11-30] MEDS ORDERED: INSULIN (NOVOLOG) ASPART 100 UNITS/ML 10ML VIAL ONE (18:24)
[2017-11-30] MEDS: WARFARIN NA 5 MG TABLET (UD) PO SCH (18:43)
[2017-11-30] MEDS: ATORVASTATIN CA 20 MG TABLET (FP) PO SCH (21:10)
[2017-12-01 02:05] LABS: URINE APPEARANCE CLEAR; URINE BILIRUBIN NEGATIVE (<2.0 mg/dL); URINE COLOR YELLOW; URINE GLUCOSE (UA) NEGATIVE (NEGATIVE); URINE KETONE NEGATIVE (NEGATIVE); URINE LEUK ESTERASE NEGATIVE (NEGATIVE); URINE NITRITE NEGATIVE (NEGATIVE); URINE PROTEIN NEGATIVE (NEGATIVE); URINE UROBILINOGEN NEGATIVE mg/dL (0.2-1.0)
[2017-12-01 02:08] LABS: URINE MUCUS RARE
[2017-12-01] MEDS: INSULIN SLIDING SCALE (NOVOLOG) 1 VIAL SQ SCH ×3 (06:07→17:02)
[2017-12-01 06:10] LABS: HBSAG SCREEN Negative (Negative); HEP B CORE AB, TOT Negative (Negative)
[2017-12-01] MEDS ORDERED: ONDANSETRON 4 MG TABLET PO ONE (06:20)
[2017-12-01 06:59] LABS: HEMATOCRIT 32.7 % (35.4-49); HEMOGLOBIN 10.8 GM/dL (11.7-16.9); MCH 30.1 pg (25.7-33.7); MCHC 33.2 g/dl (32.0-35.9); MEAN CELL VOLUME 90.6 fl (80-96); MEAN PLT VOLUME 8.8 fl (7.5-11.1); PLATELET COUNT 293 K/MM3 (134-434); RBC 3.61 M/mm3 (4.00-5.60); RDW 16.3 % (11.9-15.9); WHITE BLOOD COUNT 10.7 K/mm3 (4.0-10.0)
[2017-12-01 07:36] LABS: CHLORIDE 104 mmol/L (98-107); POTASSIUM 3.8 mmol/L (3.5-5.1); SODIUM 142 mmol/L (136-145)
[2017-12-01 07:48] LABS: ALBUMIN 2.7 g/dl (3.4-5.0); ALK PHOS 86 U/L (45-117); ANION GAP 11 MMOL/L (8-16); BILIRUBIN,TOTAL 1.2 mg/dL (0.2-1.0); BLOOD UREA NITROGEN 49 mg/dL (7-18); CALCIUM 8.3 mg/dL (8.5-10.1); CO2 27 mmol/L (21-32); CREATININE 1.4 mg/dL (0.55-1.3); GLUCOSE,RANDOM 115 mg/dL (74-106); SGOT/AST 21 U/L (15-37); SGPT/ALT 32 U/L (13-61); TOT PROT 5.7 g/dl (6.4-8.2)
[2017-12-01] MEDS: POTASSIUM CITRATE/CITRIC ACID 2 MEQ/ML ML PO SCH (10:55)
--- NOTE | 2017-12-01 11:19 | CONSULT ---
Admitting History and Physical - Primary Care Physician PCP: Harika Casas - Admission History of Present Illness: Per EMR: 72 y/o man with h/o DM , A fib, HTN, HLP, s/p PPM , chronic back pain, gout, brain mass s/p resection,who presented with b/l feet pain, 1 week of generalized weakness and complaining of generalized weakness and chills over the past 1 week. He has noted worsening edema and pain to his lower extremities. Polyarticular gout Leukocytosis Selected Entries 11/30/17 11/30/17 11/30/17 01:44 06:00 14:00 Breakfast 25% Lunch 25% Supper Temperature 97.6 F 97.7 F 97.7 F 11/30/17 11/30/17 11/30/17 17:00 20:10 21:00 Breakfast Lunch Supper 50% Temperature 98.0 F 97.9 F 12/01/17 12/01/17 01:00 05:00 Breakfast Lunch Supper Temperature 98.1 F 97.8 F Laboratory Tests 11/27/17 11/27/17 11/28/17 15:50 15:50 07:08 WBC 20.5 H 18.2 H PT with INR 24.70 H INR 2.19 H 11/29/17 11/30/17 12/01/17 05:30 05:30 05:45 WBC 16.0 H 11.9 H 10.7 H PT with INR INR Pt is alert and oriented. He reports feeling of nausea when he sees food. He says he has not vomited, but dry heaves, and sometimes saliva builds up and is expelled. (Hypersalivation from nausea suspected). He denies diarrhea, but clear looking gel from his anus. He reports that he has not had a BM since admission. He denies Dysphagia. He only had soup and [place] yesterday. History Source: Patient Limitations to Obtaining History: No Limitations - Past Medical History Cardiovascular: Yes: AFIB, HTN, Hyperlipdemia Rheumatology: Yes: Gout Endocrine: Yes: Diabetes Mellitus - Smoking History Smoking history: Unknown if ever smoked Have you smoked in the past 12 months: No Aproximately how many cigarettes per day: 0 If you are a former smoker, when did you quit?: 30 yrs ago - Alcohol/Substance Use Hx Alcohol Use: No History - Admission Reason For Visit: SEPSIS - Diagnostics CT Scan: Report Reviewed - General Mental Status: Alert and Oriented, Awake and Alert, Able to Follow Commands Attention: Intact Ability to Follow Directions: Excellent Head/Neck Control: WFL - Hearing Hearing: Normal Hearing Aide: No With Patient: No Speech Evaluation - Communication Primary Language: ANGOLAN Communication: Yes: Within Normal Limits Oral Expression Ability: Yes: No Impairment - Speech Production Able to Make Needs Known: Yes: WNL Intelligibility: Yes: WNL - Speech Characteristics Voice Loudness: Normal Voice Pitch: Yes: Normal Voice Phonatory-based Quality: Yes: Normal Speech Pattern: Normal Nasal Resonance: Normal Articulation: Yes: Precise Rate of Speech: Intact - Language/Verbal Expression Able to Respond to Simple Queries: Yes: WNL Able to Communicate Wants and Needs: Yes: WNL Functional Communication Status: Yes: WNL - Memory/Perception prison Memory: Yes: WNL Short Term Memory: Yes: WNL - Swallow Evaluation/Bedside Assessment Current Nutritional Intake: Regular, Thin Liquids Oral Secretions: Yes: WFL Dentition: Yes: Missing Teeth (Poor dental health.. Loose anterior lower tooth.) Facial Symmetry at Rest: Symmetrical Facial Symmetry on Retraction: Symmetrical Against Resistance Opening: Normal Against Resistance Closing: Normal Pucker Lips: Normal Smile: Normal Lingual Movement: Normal, Symmetric Lingual Speed of Movement: Normal Lingual Movement Strgth Against Opposition: Normal Lingual Movement Characteristics: Normal Soft Palate Description: Normal Color, Normal Symmetry Hard Palate Description: Normal Color, Normal Symmetry Velopharyngeal Movement: Normal Laryngeal Elevation: WFL Laryngeal Movement: Able to Palpate Labial Seal: WFL Oral Prep Time: WFL A-P Transit: WFL Timing of Swallow: WFL Coughing/Throat Clear: No Change in Voice: No Recommendations - Speech Evaluation, Impression/Plan Impression: Pt is alert and oriented. He reports feeling of nausea when he sees food. He says he has not vomited, but dry heaves, and sometimes saliva builds up and is expelled. (Hypersalivation from nausea suspected). He denies diarrhea , but clear looking gel from his anus. He reports that he has not had a BM since admission. No signs of Dysphagia.Swallow is brisk. Pt denies hangup, odynophagia, burning, reverse flow, spasm.He handles small sips of soda. - Dysphagia Impressions/Plan Swallowing Skills: [facility] Dysphagia Impressions: Ongoing Evaluation *Silent aspiration: cannot be R/O at bedside Recommendations: GI Consult - Recommendations Diet Consistency: Other (Clear liquids may be better tolerated.) Liquids: Thin Liquids
[2017-12-01] MEDS ORDERED: CHOLESTYRAMINE/SUCROSE 4 GM PACKET PO SCH (11:30)
--- NOTE | 2017-12-01 11:32 | CON.CARD ---
Cardiology Consult (text) - Consultation Consultation Note: cc: n/v/d hpi: 72 m hx afib, htn, hld, dm, ppm (due to afib with slow VR, biotronik, 2017 here with n/v/d. No cp , sob palps dizzy loc pnd orthopnea le edema. Sees me for cardio. pmh: per hpi psh: ppm social: no tob fam: no premature cad, scd ros: per hpi; no cough, nasal congestion, rash, cali, vision changes, gib, hematuria meds: Home Medications Medication Instructions Recorded Colchicine 0.6 mg PO BID PRN 11/28/17 Furosemide 40 mg PO DAILY 11/28/17 Methylprednisolone [Medrol Dose See Taper PO DAILY 11/28/17 Morgan] Olmesartan/Hydrochlorothiazide 1 each PO DAILY 11/28/17 [Olmesartan-Hctz 40-25 mg Tab] Oxycodone HCl 10 mg PO QID 11/28/17 Simvastatin 40 mg PO DAILY 11/28/17 Warfarin Na [Coumadin] 10 mg PO DAILY 11/28/17 metFORMIN HCL [Metformin HCl] 500 mg PO DAILY 11/28/17 pe: Vital Signs Period Temp Pulse Resp BP Sys/Luke Pulse Ox Last 24 Hr 97.7 F-98.1 F 78-89 18-20 134-162/60-98 98 nad no jvd irreg,s1s2 no mrg cta bl nl eff aaox3 no le e/c/c abd mild diff tender, +bs, nd no jaundice diaphoresis pos dp pt, no carotid bruit Laboratory Last Values WBC 10.7 K/mm3 (4.0-10.0) H 12/01/17 05:45 RBC 3.61 M/mm3 (4.00-5.60) L 12/01/17 05:45 Hgb 10.8 GM/dL (11.7-16.9) L 12/01/17 05:45 Hct 32.7 % (35.4-49) L 12/01/17 05:45 MCV 90.6 fl (80-96) 12/01/17 05:45 MCH 30.1 pg (25.7-33.7) 12/01/17 05:45 MCHC 33.2 g/dl (32.0-35.9) 12/01/17 05:45 RDW 16.3 % (11.9-15.9) H 12/01/17 05:45 Plt Count 293 K/MM3 (134-434) 12/01/17 05:45 MPV 8.8 fl (7.5-11.1) 12/01/17 05:45 Absolute Neuts (auto) 14.3 K/mm3 (1.5-8.0) H 11/29/17 05:30 Total Counted 100 11/29/17 05:30 Neutrophils % 89.6 % (42.8-82.8) H 11/29/17 05:30 Neutrophils % (Manual) 91.0 % (42.8-82.8) H 11/29/17 05:30 Band Neutrophils % 4.0 % 11/27/17 15:50 Lymphocytes % 4.1 % (8-40) L D 11/29/17 05:30 Lymphocytes % (Manual) 6.0 % (8-40) L 11/29/17 05:30 Monocytes % 5.7 % (3.8-10.2) 11/29/17 05:30 Monocytes % (Manual) 3 % (3.8-10.2) L 11/29/17 05:30 Eosinophils % 0.0 % (0-4.5) 11/29/17 05:30 Eosinophils % (Manual) 0.0 % (0-4.5) 11/27/17 15:50 Basophils % 0.6 % (0-2.0) 11/29/17 05:30 Basophils % (Manual) 0.0 % (0-2.0) 11/27/17 15:50 Nucleated RBC % 0 % (0-0) 11/29/17 05:30 Platelet Estimate Adequate 11/27/17 15:50 PT with INR 24.70 SEC (9.7-13.0) H 11/27/17 15:50 INR 2.19 (0.83-1.09) H 11/27/17 15:50 PTT (Actin FS) 33.4 SECONDS (25.2-36.5) 11/27/17 15:50 VBG pH 7.40 (7.32-7.42) 11/27/17 15:50 POC VBG pCO2 48.5 mmHg (38-52) 11/27/17 15:50 POC VBG pO2 32.8 mmHg (28-48) 11/27/17 15:50 Mixed VBG HCO3 29.5 meq/L (19-25) H 11/27/17 15:50 Sodium 142 mmol/L (136-145) 12/01/17 05:45 Potassium 3.8 mmol/L (3.5-5.1) 12/01/17 05:45 Chloride 104 mmol/L (98-107) 12/01/17 05:45 Carbon Dioxide 27 mmol/L (21-32) 12/01/17 05:45 Anion Gap 11 MMOL/L (8-16) 12/01/17 05:45 BUN 49 mg/dL (7-18) H 12/01/17 05:45 Creatinine 1.4 mg/dL (0.55-1.3) H 12/01/17 05:45 Creat Clearance w eGFR 49.96 (>60) 12/01/17 05:45 POC Glucometer 155 UNITS (80-120) 12/01/17 10:38 Random Glucose 115 mg/dL (74-106) H 12/01/17 05:45 Hemoglobin A1c % 6.6 % (4.8-6.0) H 11/28/17 07:08 Lactic Acid 2.0 mmol/L (0.0-2.0) 11/27/17 17:50 Uric Acid 11.6 mg/dL (2.6-7.2) H 11/27/17 22:10 Calcium 8.3 mg/dL (8.5-10.1) L 12/01/17 05:45 Phosphorus 3.5 mg/dL (2.5-4.9) 11/28/17 07:08 Magnesium 2.2 mg/dL (1.8-2.4) 11/28/17 07:08 Total Bilirubin 1.2 mg/dL (0.2-1.0) H 12/01/17 05:45 Direct Bilirubin 1.9 mg/dL (0.0-0.2) H 11/29/17 05:30 AST 21 U/L (15-37) 12/01/17 05:45 ALT 32 U/L (13-61) 12/01/17 05:45 Alkaline Phosphatase 86 U/L (45-117) 12/01/17 05:45 Creatine Kinase 280 IU/L (39-308) 11/27/17 22:10 Creatine Kinase Index 0.5 % (0.0-5.0) 11/27/17 22:10 CK-MB (CK-2) 1.63 ng/mL (0.5-3.6) 11/27/17 22:10 Troponin I 0.10 ng/ml (0.00-0.05) H 11/28/17 07:08 Total Protein 5.7 g/dl (6.4-8.2) L 12/01/17 05:45 Albumin 2.7 g/dl (3.4-5.0) L 12/01/17 05:45 Urine Color Yellow 12/01/17 02:00 Urine Appearance Clear 12/01/17 02:00 Urine pH 5.0 (5.0-8.0) 12/01/17 02:00 Ur Specific [place] 1.014 (1.001-1.035) 12/01/17 02:00 Urine Protein Negative (NEGATIVE) 12/01/17 02:00 Urine Glucose (UA) Negative (NEGATIVE) 12/01/17 02:00 Urine Ketones Negative (NEGATIVE) 12/01/17 02:00 Urine Blood 2+ (NEGATIVE) H 12/01/17 02:00 Urine Nitrite Negative (NEGATIVE) 12/01/17 02:00 Urine Bilirubin Negative (<2.0 mg/dL) 12/01/17 02:00 Urine Urobilinogen Negative mg/dL (0.2-1.0) 12/01/17 02:00 Ur Leukocyte Esterase Negative (NEGATIVE) 12/01/17 02:00 Urine WBC (Auto) 2 /hpf (3-5) 12/01/17 02:00 Urine RBC (Auto) 4 /hpf (0-3) 12/01/17 02:00 Ur Epithelial Cells Rare /HPF (FEW) 11/27/17 16:37 Hyaline Casts 1 /lpf 11/27/17 16:37 Urine Mucus Rare 12/01/17 02:00 Urine Yeast Few 11/27/17 16:37 Ur Random Sodium 11 MMOL/L 11/28/17 20:35 Ur Random Potassium 28.2 MMOL/L 11/28/17 20:35 Ur Random Chloride < 10 MMOL/L 11/28/17 20:35 Urine Creatinine 137.0 mg/dL (20-370) 11/28/17 20:35 Hepatitis A Ab Total Negative (Negative) 11/30/17 13:08 Hep Bs Antigen Negative (Negative) 11/30/17 13:08 Hep Bs Antibody Non reactive (.) 11/30/17 13:08 Hep B Core Total Ab Negative (Negative) 11/30/17 13:08 ecg: afib, rbbb, occ second vp hr assessment tele: afib, occ second vp hr assessment echo 03/2016: nl lv/rv, maninder, mild-mod mr, mod tr, rvsp 41 echo 11/2017: mild lve, nl lvef, rv tds, maninder, iasa, sev mr, mod-sev tr, nl rvsp- ->on my review, mod mr, mild tr mibi 03/2016: no ischemia, nl lvef cxr: clear lungs a/p: 72 m hx afib, htn, hld, dm, ppm (due to afib with slow VR, biotronik, 2017 here with n/v/d. n/v/d: -?gastroenteritis -no signs acs, troponin w/o significant elevation (borderline elevation, flat trend, similar to priors) -plans per pmd/GI afib with slow vr s/p ppm: -on coumadin -i reviewed echo here, it is similar to 03/2016 -rate controlled off meds -ppm done for slow VR,routine office checks htn: -cont home meds hld: -cont statin le edema /venous insuff: -stable on lasix cardiac josue stable, dc tele
--- NOTE | 2017-12-01 12:01 | PN ---
Progress Note, Physician History of Present Illness: Pt seen and examined at bedside. He is awake and alert. He feels that diarrhea is improving. He says he has poor PO intake. - Current Medication List Current Medications: Active Medications Atorvastatin Calcium (Lipitor -) 20 mg PO [facility] Last Admin: 11/30/17 21:10 Dose: 20 mg Cholestyramine Resin (Questran Packet -) 4 gm PO DAILY [facility] Insulin Aspart (Novolog Vial Sliding Scale -) 1 vial SQ TIDAC [facility]; Protocol Last Admin: 12/01/17 06:07 Dose: Not Given Potassium Citrate/Citric Acid (Cytra-K -) 20 meq PO DAILY [facility] Last Admin: 12/01/17 10:55 Dose: 20 meq Warfarin Sodium (Coumadin -) 5 mg PO DAILY@1800 [facility] Last Admin: 11/30/17 18:43 Dose: 5 mg - Objective Vital Signs: Vital Signs Temperature 97.8 F 12/01/17 05:00 Pulse Rate 78 12/01/17 09:00 Respiratory Rate 18 12/01/17 09:00 Blood Pressure 155/80 12/01/17 09:00 O2 Sat by Pulse Oximetry (%) 98 11/30/17 21:00 Constitutional: Yes: Calm Eyes: Yes: Conjunctiva Clear HENT: Yes: Atraumatic Neck: Yes: Supple Cardiovascular: Yes: S1, S2 Respiratory: Yes: CTA Bilaterally Gastrointestinal: Yes: Soft, Abdomen, Obese Genitourinary: Yes: WNL Musculoskeletal: Yes: WNL Edema: LLE: Trace, RLE: Trace Neurological: Yes: Oriented Psychiatric: Yes: Oriented Labs: CBC, BMP 12/01/17 05:45 12/01/17 05:45 INR, PTT INR 2.19 (0.83-1.09) H 11/27/17 15:50 Problem List - Problems (1) Azotemia Code(s): R79.89 - OTHER SPECIFIED ABNORMAL FINDINGS OF BLOOD CHEMISTRY (2) Sepsis Code(s): A41.9 - SEPSIS, UNSPECIFIED ORGANISM Qualifiers: Sepsis type: sepsis due to unspecified organism Qualified Code(s): A41.9 - Sepsis, unspecified organism Assessment/Plan Current Medications Generic Name Dose Route Start Last Admin Trade Name Freq PRN Reason Stop Dose Admin Atorvastatin Calcium 20 mg 11/28/17 22:00 09/13/18 21:10 Lipitor - PO 20 mg HS CHINYERE Administration Cholestyramine Resin 4 gm 12/01/17 11:30 Questran Packet - PO DAILY [facility] Insulin Aspart 1 vial 11/28/17 16:30 12/01/17 06:07 Novolog Vial Sliding Scale - SQ Not Given TIDAC [facility] Protocol Potassium Citrate/Citric Acid 20 meq 11/29/17 10:00 12/01/17 10:55 Cytra-K - PO 20 meq DAILY CHINYERE Administration Warfarin Sodium 5 mg 11/28/17 18:00 11/30/17 18:43 Coumadin - PO 5 mg DAILY@1800 CHINYERE Administration Laboratory Tests 11/30/17 13:08 HIPOLITO M-Maximo Pending LUCIA Screen Pending c-ANCA Pending Proteinase 3 (PR3) Pending p-ANCA Pending Atypical p-ANCA Pending Myeloperoxidase Ab Pending Double Strand DNA Ab Pending Glomerular Base Memb Ab Pending Impression 1. Azotemia 2. diarrhea 3. gout 4. ileus 5. pericardial effusion 6. DM 7. hematuria Plan - creatinine is improving - workup in progress - cardio eval for echo findings - can stop fluids - pt has a baseline shoe ironer of about 1.2 as outpt - discussed with medical team - avoid nsaids
--- NOTE | 2017-12-01 13:14 | CON.GI ---
Consult Consult Specialty:: GI Reason for Consultation:: nausea, mucous in stool - History of Present Illness History of Present Illness: Chart reviewed, events and hospital course noted. GI was called to evaluate for dry heaves and mucous in stool. No dysphagia, odynophagia, dyspepsia, jaundice, melena, hematochezia. Dry heaves, per patient, have been present on/off for many years. This time triggered by site of food. Able to tolerate non- carbonated drinks. He had normal bms prior to this admission on 11/27. T. bili 4.8 on 11/27, T. bili 2.6 and direct 1.9 on on 11/29 Liver chem remained essentially normal otherwise. Lipase was not checked. Normocytic, hypochromic anemia, renal insuficiency. [id number] US/ABDOMEN US HISTORY PROVIDED: Abdominal distention. Real time examination of the abdomen demonstrates the following: The gallbladder is normal in size and does contain multiple calculi. There is no evidence of intra or extrahepatic biliary duct dilatation. The liver is enlarged measuring 22.3 cm in craniocaudad dimension. It is hyperechoic in texture consistent with diffuse fatty infiltration. No discrete intrahepatic masses are identified. Hepatopedal flow is documented within the main portal vein. The pancreas is poorly visualized due to overlying bowel gas. The spleen is slightly enlarged measuring 12 cm in craniocaudad dimension. There is no evidence of hydronephrosis or acute renal abnormalities. There is no evidence of AAA. The IVC is patent. IMPRESSION: 1. Cholelithiasis. 2. Hepatosplenomegaly with diffuse fatty infiltration of the liver. - History Source History Provided By: Patient, Medical Record - Past Medical History Cardio/Vascular: Yes: AFIB, HTN, Hyperlipdemia Gastrointestinal: Yes: Ascites Rheumatology: Yes: Gout Endocrine: Yes: Diabetes Mellitus - Alcohol/Substance Use Hx Alcohol Use: No - Smoking History Smoking history: Unknown if ever smoked Have you smoked in the past 12 months: No Aproximately how many cigarettes per day: 0 If you are a former smoker, when did you quit?: 30 yrs ago Home Medications - Allergies Allergies/Adverse Reactions: Allergies Allergy/AdvReac Type Severity Reaction Status Date / Time No Known Allergies Allergy Verified 12/08/15 11:21 - Home Medications Home Medications: Ambulatory Orders Colchicine 0.6 mg PO BID PRN 11/28/17 Furosemide 40 mg PO DAILY 11/28/17 Methylprednisolone [Medrol Dose Morgan] See Taper PO DAILY 11/28/17 Olmesartan/Hydrochlorothiazide [Olmesartan-Hctz 40-25 mg Tab] 1 each PO DAILY Oxycodone HCl 10 mg PO QID 11/28/17 Simvastatin 40 mg PO DAILY 11/28/17 Warfarin Na [Coumadin] 10 mg PO DAILY 11/28/17 metFORMIN HCL [Metformin HCl] 500 mg PO DAILY 11/28/17 Family Disease History - Family Disease History Family History: Unremarkable (non-contributory) Review of Systems Findings/Remarks: as per HPI, ED, H&P Physical Exam-GI Vital Signs: Vital Signs Temperature 97.8 F 12/01/17 05:00 Pulse Rate 78 12/01/17 09:00 Respiratory Rate 18 12/01/17 09:00 Blood Pressure 155/80 12/01/17 09:00 O2 Sat by Pulse Oximetry (%) 98 11/30/17 21:00 Constitutional: Yes: Well Nourished, No Distress, Calm Eyes: Yes: Conjunctiva Clear HENT: Yes: Atraumatic Neck: Yes: Supple Cardiovascular: Yes: Regular Rate and Rhythm Respiratory: Yes: Regular Gastrointestinal Inspection: Yes: Distention. No: Ascites ...Auscultate: Yes: Normoactive Bowel Sounds ...Palpate: Yes: Soft. No: Firm/Rigid, Guarding, Mass, Tenderness, Tenderness, Epigastium, Tenderness, Rebound Neurological: Yes: Alert, Oriented. No: Asterixis Labs: CBC, BMP 12/01/17 05:45 12/01/17 05:45 INR, PTT INR 2.19 (0.83-1.09) H 11/27/17 15:50 Laboratory Last Values WBC 10.7 K/mm3 (4.0-10.0) H 12/01/17 05:45 RBC 3.61 M/mm3 (4.00-5.60) L 12/01/17 05:45 Hgb 10.8 GM/dL (11.7-16.9) L 12/01/17 05:45 Hct 32.7 % (35.4-49) L 12/01/17 05:45 MCV 90.6 fl (80-96) 12/01/17 05:45 MCH 30.1 pg (25.7-33.7) 12/01/17 05:45 MCHC 33.2 g/dl (32.0-35.9) 12/01/17 05:45 RDW 16.3 % (11.9-15.9) H 12/01/17 05:45 Plt Count 293 K/MM3 (134-434) 12/01/17 05:45 MPV 8.8 fl (7.5-11.1) 12/01/17 05:45 Absolute Neuts (auto) 14.3 K/mm3 (1.5-8.0) H 11/29/17 05:30 Total Counted 100 11/29/17 05:30 Neutrophils % 89.6 % (42.8-82.8) H 11/29/17 05:30 Neutrophils % (Manual) 91.0 % (42.8-82.8) H 11/29/17 05:30 Band Neutrophils % 4.0 % 11/27/17 15:50 Lymphocytes % 4.1 % (8-40) L D 11/29/17 05:30 Lymphocytes % (Manual) 6.0 % (8-40) L 11/29/17 05:30 Monocytes % 5.7 % (3.8-10.2) 11/29/17 05:30 Monocytes % (Manual) 3 % (3.8-10.2) L 11/29/17 05:30 Eosinophils % 0.0 % (0-4.5) 11/29/17 05:30 Eosinophils % (Manual) 0.0 % (0-4.5) 11/27/17 15:50 Basophils % 0.6 % (0-2.0) 11/29/17 05:30 Basophils % (Manual) 0.0 % (0-2.0) 11/27/17 15:50 Nucleated RBC % 0 % (0-0) 11/29/17 05:30 Platelet Estimate Adequate 11/27/17 15:50 PT with INR 24.70 SEC (9.7-13.0) H 11/27/17 15:50 INR 2.19 (0.83-1.09) H 11/27/17 15:50 PTT (Actin FS) 33.4 SECONDS (25.2-36.5) 11/27/17 15:50 VBG pH 7.40 (7.32-7.42) 11/27/17 15:50 POC VBG pCO2 48.5 mmHg (38-52) 11/27/17 15:50 POC VBG pO2 32.8 mmHg (28-48) 11/27/17 15:50 Mixed VBG HCO3 29.5 meq/L (19-25) H 11/27/17 15:50 Sodium 142 mmol/L (136-145) 12/01/17 05:45 Potassium 3.8 mmol/L (3.5-5.1) 12/01/17 05:45 Chloride 104 mmol/L (98-107) 12/01/17 05:45 Carbon Dioxide 27 mmol/L (21-32) 12/01/17 05:45 Anion Gap 11 MMOL/L (8-16) 12/01/17 05:45 BUN 49 mg/dL (7-18) H 12/01/17 05:45 Creatinine 1.4 mg/dL (0.55-1.3) H 12/01/17 05:45 Creat Clearance w eGFR 49.96 (>60) 12/01/17 05:45 POC Glucometer 155 UNITS (80-120) 12/01/17 10:38 Random Glucose 115 mg/dL (74-106) H 12/01/17 05:45 Hemoglobin A1c % 6.6 % (4.8-6.0) H 11/28/17 07:08 Lactic Acid 2.0 mmol/L (0.0-2.0) 11/27/17 17:50 Uric Acid 11.6 mg/dL (2.6-7.2) H 11/27/17 22:10 Calcium 8.3 mg/dL (8.5-10.1) L 12/01/17 05:45 Phosphorus 3.5 mg/dL (2.5-4.9) 11/28/17 07:08 Magnesium 2.2 mg/dL (1.8-2.4) 11/28/17 07:08 Total Bilirubin 1.2 mg/dL (0.2-1.0) H 12/01/17 05:45 Direct Bilirubin 1.9 mg/dL (0.0-0.2) H 11/29/17 05:30 AST 21 U/L (15-37) 12/01/17 05:45 ALT 32 U/L (13-61) 12/01/17 05:45 Alkaline Phosphatase 86 U/L (45-117) 12/01/17 05:45 Creatine Kinase 280 IU/L (39-308) 11/27/17 22:10 Creatine Kinase Index 0.5 % (0.0-5.0) 11/27/17 22:10 CK-MB (CK-2) 1.63 ng/mL (0.5-3.6) 11/27/17 22:10 Troponin I 0.10 ng/ml (0.00-0.05) H 11/28/17 07:08 Total Protein 5.7 g/dl (6.4-8.2) L 12/01/17 05:45 Albumin 2.7 g/dl (3.4-5.0) L 12/01/17 05:45 Urine Color Yellow 12/01/17 02:00 Urine Appearance Clear 12/01/17 02:00 Urine pH 5.0 (5.0-8.0) 12/01/17 02:00 Ur Specific [place] 1.014 (1.001-1.035) 12/01/17 02:00 Urine Protein Negative (NEGATIVE) 12/01/17 02:00 Urine Glucose (UA) Negative (NEGATIVE) 12/01/17 02:00 Urine Ketones Negative (NEGATIVE) 12/01/17 02:00 Urine Blood 2+ (NEGATIVE) H 12/01/17 02:00 Urine Nitrite Negative (NEGATIVE) 12/01/17 02:00 Urine Bilirubin Negative (<2.0 mg/dL) 12/01/17 02:00 Urine Urobilinogen Negative mg/dL (0.2-1.0) 12/01/17 02:00 Ur Leukocyte Esterase Negative (NEGATIVE) 12/01/17 02:00 Urine WBC (Auto) 2 /hpf (3-5) 12/01/17 02:00 Urine RBC (Auto) 4 /hpf (0-3) 12/01/17 02:00 Ur Epithelial Cells Rare /HPF (FEW) 11/27/17 16:37 Hyaline Casts 1 /lpf 11/27/17 16:37 Urine Mucus Rare 12/01/17 02:00 Urine Yeast Few 11/27/17 16:37 Ur Random Sodium 11 MMOL/L 11/28/17 20:35 Ur Random Potassium 28.2 MMOL/L 11/28/17 20:35 Ur Random Chloride < 10 MMOL/L 11/28/17 20:35 Urine Creatinine 137.0 mg/dL (20-370) 11/28/17 20:35 Hepatitis A Ab Total Negative (Negative) 11/30/17 13:08 Hep Bs Antigen Negative (Negative) 11/30/17 13:08 Hep Bs Antibody Non reactive (.) 11/30/17 13:08 Hep B Core Total Ab Negative (Negative) 11/30/17 13:08 Imaging - Results Ultrasound: Report Reviewed Problem List - Problems (1) Nausea Code(s): R11.0 - NAUSEA (2) Altered bowel habits Code(s): R19.4 - CHANGE IN BOWEL HABIT Assessment/Plan A 72M with the above history and presentation. Cholestasis on admission and US documented cholelithiais. Unable to tolerate reg diet due to nausea triggered by food. ? Symptomatic cholelithiais, upper GI inflammatory states, (gallstone) pancreatitis, medications (po potassium, etc) Recommend: po PPI, antiemetic prn ac meals, lipase, d/c cholestyramine, Sx consult re:
--- NOTE | 2017-12-01 16:43 | PN ---
Physical Exam: SUBJECTIVE: Patient seen and examined at bedside this morning. Still admits nausea, dry heaving and liquid-mucoid diarrhea overnight. Denies fevers, chills , chest pain, palpitations, shortness of breath, cough. Active range of motion and strength in B/L lower extremities significantly improved from admission. OBJECTIVE: Vital Signs Period Temp Pulse Resp BP Sys/Luke Pulse Ox Last 24 Hr 97.8 F-98.1 F 78-89 18-20 134-185/60-110 98 GENERAL: The patient is awake, alert, and fully oriented, in mild distress. HEAD: Normal with no signs of trauma. EYES: PERRL, extraocular movements intact, sclera anicteric, conjunctiva clear. ENT: Oropharynx clear without exudates, moist mucous membranes. NECK: Trachea midline, full range of motion, supple. LUNGS: Breath sounds equal, clear to auscultation bilaterally, no wheezes, no accessory muscle use. HEART: Regular rate and rhythm, S1, S2 without murmur, rub or gallop appreciated. ABDOMEN: Obese abdomen. Distended. Soft, nontender to palpation, normoactive bowel sounds, no guarding, no rebound. EXTREMITIES: 1+ DP pulses B/L. 2+ radial pulses B/L. Warm to touch. Tender to deeper palpation. Pain to palpation of B/L knees at joint line. NEUROLOGICAL: Cranial nerves II through XII grossly intact. Normal speech. Upper extremity strength 5/5 B/L in flexion extension, abduction, adduction. Lower extremity strength limited by pain. Hip flexion, extension 5/5 B/L. Knee flexion and extension 5/5 B/L. Dorsiflexion and Plantarflexion 5/5 B/L. PSYCH: Appropriate mood and affect upon my exam today. SKIN: Warm. Discoloration (hyperpigmentation) in B/L lower extremities at level of medial/ lateral malleolus extending superiorly 5-6 inches B/L. Laboratory Results - last 24 hr 11/30/17 11/30/17 12/01/17 13:08 17:33 02:00 WBC RBC Hgb Hct MCV MCH MCHC RDW Plt Count MPV Sodium Potassium Chloride Carbon Dioxide Anion Gap BUN Creatinine Creat Clearance w eGFR POC Glucometer 192 Random Glucose Calcium Total Bilirubin AST ALT Alkaline Phosphatase Total Protein Albumin Urine Color Yellow Urine Appearance Clear Urine pH 5.0 Ur Specific [place] 1.014 Urine Protein Negative Urine Glucose (UA) Negative Urine Ketones Negative Urine Blood 2+ H Urine Nitrite Negative Urine Bilirubin Negative Urine Urobilinogen Negative Ur Leukocyte Esterase Negative Urine WBC (Auto) 2 Urine RBC (Auto) 4 Urine Mucus Rare Double Strand DNA Ab <1 Hepatitis A Ab Total Negative Hep Bs Antigen Negative Hep Bs Antibody Non reactive Hep B Core Total Ab Negative 12/01/17 12/01/17 12/01/17 05:45 05:45 06:01 WBC 10.7 H RBC 3.61 L Hgb 10.8 L Hct 32.7 L MCV 90.6 MCH 30.1 MCHC 33.2 RDW 16.3 H Plt Count 293 MPV 8.8 Sodium 142 Potassium 3.8 Chloride 104 Carbon Dioxide 27 Anion Gap 11 BUN 49 H Creatinine 1.4 H Creat Clearance w eGFR 49.96 POC Glucometer 125 Random Glucose 115 H Calcium 8.3 L Total Bilirubin 1.2 H AST 21 ALT 32 Alkaline Phosphatase 86 Total Protein 5.7 L Albumin 2.7 L Urine Color Urine Appearance Urine pH Ur Specific [place] Urine Protein Urine Glucose (UA) Urine Ketones Urine Blood Urine Nitrite Urine Bilirubin Urine Urobilinogen Ur Leukocyte Esterase Urine WBC (Auto) Urine RBC (Auto) Urine Mucus Double Strand DNA Ab Hepatitis A Ab Total Hep Bs Antigen Hep Bs Antibody Hep B Core Total Ab 12/01/17 10:38 WBC RBC Hgb Hct MCV MCH MCHC RDW Plt Count MPV Sodium Potassium Chloride Carbon Dioxide Anion Gap BUN Creatinine Creat Clearance w eGFR POC Glucometer 155 Random Glucose Calcium Total Bilirubin AST ALT Alkaline Phosphatase Total Protein Albumin Urine Color Urine Appearance Urine pH Ur Specific [place] Urine Protein Urine Glucose (UA) Urine Ketones Urine Blood Urine Nitrite Urine Bilirubin Urine Urobilinogen Ur Leukocyte Esterase Urine WBC (Auto) Urine RBC (Auto) Urine Mucus Double Strand DNA Ab Hepatitis A Ab Total Hep Bs Antigen Hep Bs Antibody Hep B Core Total Ab Active Medications Generic Name Dose Route Start Last Admin Trade Name Freq PRN Reason Stop Dose Admin Atorvastatin Calcium 20 mg 11/28/17 22:00 11/30/17 21:10 Lipitor - PO 20 mg HS [facility] Administration Insulin Aspart 1 vial 11/28/17 16:30 12/01/17 13:09 Novolog Vial Sliding Scale - SQ Not Given TIDAC [facility] Protocol Ondansetron HCl 4 mg 12/01/17 16:19 Zofran - PO Q6H PRN NAUSEA Pantoprazole Sodium 40 mg 12/02/17 10:00 Protonix - PO DAILY [facility] Potassium Citrate/Citric Acid 20 meq 11/29/17 10:00 12/01/17 10:55 Cytra-K - PO 20 meq DAILY [facility] Administration Warfarin Sodium 5 mg 11/28/17 18:00 11/30/17 18:43 Coumadin - PO 5 mg DAILY@1800 [facility] Administration IMAGING: CT abdomen/ pelvis showed: hepatic steatosis, small pericardial effusion, cholelithiasis without evidence cholecystitis. Cardiac ECHO: severe dilation left atrium and right atrium, with atrial septal aneurysmal. Severe MR, moderate to severe TR. LVEF is normal. No pericardial effusion noted. ASSESSMENT/PLAN: Patient is a 72 year old male with history of Gout, DM, HLD, Afib on Coumadin presents with complaint of B/L lower extremity pain. Admitted for cellulitis vs gout flare up. Gout flare-up -Likely gout d/t patient's history of gout, recently run out of Colchicine. No fluctuance or erythema of the joints appreciated that could suggest gout. -Patient completed three days of Prednisone. -Potassium citrate 20meq PO daily -No Colchicine or NSAIDs d/t patient's ROSARIO -As per discussion with ID, will advise patient of importance to follow up with [facility]. GI consult requested. ROSARIO -Improving. Creatinine 1.5 today. Baseline Cr at 1.2 as per BMP from Dr. Loco. -Nephrology consult (Dr. Gabriel) appreciated: IVNS discontinued. FeNa was 0.1% indicating prerenal etiology, likely secondary to the diarrhea. -Bladder US shows no intrinsic bladder abnormalities, without significant post void residual volume. -F/U Renal US -F/U Antinuclear AB, C-ANCA, P-ANCA, atypical P-anca, Antiglomerular basement AB , ds-DNA AB, Myeloperoxidase AB, Proteinase 3, HIPOLITO M-spike. -F/U Hepatitis A/B/C serology Nausea -Patient nauseous, and dry heaving. Not able to tolerate his breakfast this morning. -GI consult (Dr. Romero) appreciated: Will begin Omeprazole 40mg QD, and D/C cholestyramine. Lipase ordered. Surgical consult placed. -F/U surgical consult (Dr. Bejarano) -F/U lipase Leukocytosis -Improving. WBC 10.7 today (11.9 yesterday) -Unclear etiology. However unlikely d/t cellulitis as there is no erythema of inflammation. -C.diff cultures- negative for C.diff -F/U Stool cultures -Blood cultures preliminary negative for growth at 96 hours -Urine cultures- Negative for growth. -ID consult (Dr. Galvez) appreciated. Troponinemia -Trended down 0.15 -> 0.12 -> 0.10 -EKG showed: Afib with ocassional ventricular paced complexes, RBBB, left posterior fascicular block. T wave abnormality seen in anterior-septal leads. -Likely due to patient's acute renal failure. -Cardiac ECHO noted no pericardial effusion -Cardiac consult (Dr. Huang) appreciated: Afib rate controlled without medication. Will d/c telemetry. Cardiac ECHO similar to prior study in 2017. Afib -Coumadin 5 mg PO QD HTN -Hold Olmesartan-HCTZ 40-25. HLD -Atorvastatin 20mg PO HS DM -Hold Metformin 500mg PO QD -ISS -BGM FEN -IVNS at 60mL/hr -Will follow CMP -Diabetic diet Prophylaxis -On Warfarin 5mg PO QD Disposition -Continue care in medical-surgical floor. Visit type - Emergency Visit Emergency Visit: Yes ED Registration Date: 11/27/17 Care time: The patient presented to the Emergency Department on the above date and was hospitalized for further evaluation of their emergent condition. - New Patient This patient is new to me today: No - Critical Care Critical Care patient: No - Discharge Referral Referred to [facility] Med P.C.: No
[2017-12-01] MEDS: WARFARIN NA 5 MG TABLET (UD) PO SCH ×2 (17:02→17:56)
--- NOTE | 2017-12-01 18:05 | PN ---
Teaching Attending Note Name of Resident: Tao Melendrez ATTENDING PHYSICIAN STATEMENT I saw and evaluated the patient. I reviewed the resident's note and discussed the case with the resident. I agree with the resident's findings and plan as documented. SUBJECTIVE: Patient continues to complain of having nausea. legs are better. OBJECTIVE: Vital Signs Temperature 97.8 F 12/01/17 14:00 Pulse Rate 82 12/01/17 17:01 Respiratory Rate 18 12/01/17 17:01 Blood Pressure 159/56 12/01/17 17:01 O2 Sat by Pulse Oximetry (%) 98 11/30/17 21:00 CBCD WBC 10.7 K/mm3 (4.0-10.0) H 12/01/17 05:45 RBC 3.61 M/mm3 (4.00-5.60) L 12/01/17 05:45 Hgb 10.8 GM/dL (11.7-16.9) L 12/01/17 05:45 Hct 32.7 % (35.4-49) L 12/01/17 05:45 MCV 90.6 fl (80-96) 12/01/17 05:45 MCHC 33.2 g/dl (32.0-35.9) 12/01/17 05:45 RDW 16.3 % (11.9-15.9) H 12/01/17 05:45 Plt Count 293 K/MM3 (134-434) 12/01/17 05:45 MPV 8.8 fl (7.5-11.1) 12/01/17 05:45 CMP Sodium 142 mmol/L (136-145) 12/01/17 05:45 Potassium 3.8 mmol/L (3.5-5.1) 12/01/17 05:45 Chloride 104 mmol/L (98-107) 12/01/17 05:45 Carbon Dioxide 27 mmol/L (21-32) 12/01/17 05:45 Anion Gap 11 MMOL/L (8-16) 12/01/17 05:45 BUN 49 mg/dL (7-18) H 12/01/17 05:45 Creatinine 1.4 mg/dL (0.55-1.3) H 12/01/17 05:45 Creat Clearance w eGFR 49.96 (>60) 12/01/17 05:45 Random Glucose 115 mg/dL (74-106) H 12/01/17 05:45 Calcium 8.3 mg/dL (8.5-10.1) L 12/01/17 05:45 Total Bilirubin 1.2 mg/dL (0.2-1.0) H 12/01/17 05:45 AST 21 U/L (15-37) 12/01/17 05:45 ALT 32 U/L (13-61) 12/01/17 05:45 Alkaline Phosphatase 86 U/L (45-117) 12/01/17 05:45 Total Protein 5.7 g/dl (6.4-8.2) L 12/01/17 05:45 Albumin 2.7 g/dl (3.4-5.0) L 12/01/17 05:45 CARDIAC ENZYMES Creatine Kinase 280 IU/L (39-308) 11/27/17 22:10 Troponin I 0.10 ng/ml (0.00-0.05) H 11/28/17 07:08 Current Medications Generic Name Dose Route Start Last Admin Trade Name Freq PRN Reason Stop Dose Admin Atorvastatin Calcium 20 mg 12/01/17 22:00 Lipitor - PO HS [facility] Insulin Aspart 1 vial 12/02/17 07:00 Novolog Vial Sliding Scale - SQ TIDAC [facility] Protocol Ondansetron HCl 4 mg 12/01/17 16:19 Zofran - PO Q6H PRN NAUSEA Pantoprazole Sodium 40 mg 12/02/17 10:00 Protonix - PO DAILY [facility] Potassium Citrate/Citric Acid 20 meq 12/02/17 10:00 Cytra-K - PO DAILY [facility] Warfarin Sodium 5 mg 12/01/17 18:00 12/01/17 17:56 Coumadin - PO Not Given DAILY@1800 [facility] Home Medications Medication Instructions Recorded Colchicine 0.6 mg PO BID PRN 11/28/17 Furosemide 40 mg PO DAILY 11/28/17 Methylprednisolone [Medrol Dose See Taper PO DAILY 11/28/17 Morgan] Olmesartan/Hydrochlorothiazide 1 each PO DAILY 11/28/17 [Olmesartan-Hctz 40-25 mg Tab] Oxycodone HCl 10 mg PO QID 11/28/17 Simvastatin 40 mg PO DAILY 11/28/17 Warfarin Na [Coumadin] 10 mg PO DAILY 11/28/17 metFORMIN HCL [Metformin HCl] 500 mg PO DAILY 11/28/17 Microbiology 11/27/17 16:10 Blood - Peripheral Venous Blood Culture - Preliminary NO GROWTH OBTAINED AFTER 96 HOURS, INCUBATION TO CONTINUE FOR 1 DAYS. 11/27/17 15:50 Blood - Peripheral Venous Blood Culture - Preliminary NO GROWTH OBTAINED AFTER 96 HOURS, INCUBATION TO CONTINUE FOR 1 DAYS. 11/29/17 11:30 Stool Clostridium difficile Antigen (CLAUDIA) - Final 11/29/17 11:30 Stool Clostridium difficile Toxin Assay - Final 11/27/17 16:00 Urine - Urine - Catheterized Urine Culture - Final NO GROWTH OBTAINED PE: per resident's note ASSESSMENT AND PLAN: 72 y/o man with h/o DM , A fib, HTN, HLP, s/p PPM , chronic back pain, gout, brain mass s/p resection,who presented with b/l feet pain. # Nausea with eating; unable to keep any food down: GI consult for further evaluation. # A fib:On coumadin continue , PT,INR in am # Polyarticular gout imrpoved ,completed steroid . hold colchicine since Elevated creatinine , No Nsaids as well # Leukocytosis imrpoving ,most likely due to steroids . cxray and UA are not suggestive of infection. No antibiotic for now , since no source of infection is noted. follow urine and blood cx. # ROSARIO : most likely due to diuretics hold Losartan, kidneys appear unremarkable on US # Trop leak: most likely due to demand ischemia, EKG with TWI in anteroseptal and lateral leads. no old EKG to compare to. No CP . echo, to explore the pericardial effusion seen on CT # DM, HTN: continue home meds. DVTpx : on coumadin
[2017-12-01] MEDS: ONDANSETRON 4 MG TABLET PO PRN (18:20)
[2017-12-01] MEDS: ATORVASTATIN CA 20 MG TABLET (FP) PO SCH (22:02)
[2017-12-02] MEDS: ONDANSETRON 4 MG TABLET PO PRN ×2 (02:24→08:23)
[2017-12-02] MEDS: INSULIN SLIDING SCALE (NOVOLOG) 1 VIAL SQ SCH ×3 (06:06→16:44)
[2017-12-02 08:18] LABS: ALBUMIN 2.8 g/dl (3.4-5.0); ANION GAP 8 MMOL/L (8-16); BLOOD UREA NITROGEN 34 mg/dL (7-18); CALCIUM 8.3 mg/dL (8.5-10.1); CHLORIDE 105 mmol/L (98-107); CO2 29 mmol/L (21-32); CREATININE 1.1 mg/dL (0.55-1.3); GLUCOSE,RANDOM 126 mg/dL (74-106); SGOT/AST 19 U/L (15-37); SGPT/ALT 28 U/L (13-61); SODIUM 142 mmol/L (136-145)
[2017-12-02 08:21] LABS: ALK PHOS 90 U/L (45-117); BILIRUBIN,TOTAL 1.2 mg/dL (0.2-1.0); TOT PROT 5.9 g/dl (6.4-8.2)
[2017-12-02 08:39] LABS: PROTHROMBIN TIME (PATIENT) 60.6 SEC (9.7-13.0)
[2017-12-02 08:44] LABS: INR 5.36 (0.83-1.09)
[2017-12-02] MEDS ORDERED: PT OWN MED DRAWER 7, Y5N ONE (09:15)
[2017-12-02] MEDS: PANTOPRAZOLE 40 MG TABLET (FP) PO SCH (09:18)
[2017-12-02] MEDS: POTASSIUM CITRATE/CITRIC ACID 2 MEQ/ML ML PO SCH (09:18)
[2017-12-02 09:30] LABS: BASO % 0.9 % (0-2.0); EOS % 1.9 % (0-4.5); HEMATOCRIT 34.6 % (35.4-49); HEMOGLOBIN 11.4 GM/dL (11.7-16.9); LYMPH % 7.5 % (8-40); MCH 29.8 pg (25.7-33.7); MEAN CELL VOLUME 90.2 fl (80-96); MONO % 7.8 % (3.8-10.2); NEUT % 81.9 % (42.8-82.8); PLATELET COUNT 321 K/MM3 (134-434); RBC 3.84 M/mm3 (4.00-5.60); RDW 16.5 % (11.9-15.9); WHITE BLOOD COUNT 12.5 K/mm3 (4.0-10.0)
--- NOTE | 2017-12-02 10:03 | CONSULT ---
- Consultation REQUESTING PROVIDER: Nick TEJEDA CONSULT REQUEST: We have been asked to surgically evaluate this patient for wretching and nausea possibly due to gallbladder disease.devin PCP:Harika Casas HISTORY OF PRESENT ILLNESS: CTSP who is a 72 y/o male who presented w/leg swelling and ?? abdominal pain and naisea and wretching; patient seen and evaluated and chart reviewed and hx. taken w/ his son present; he has had an extensive inpatient w/u; he is only able to tolerate liquids at best and gets nauseated just looking at food; he states he had some form of gastritis after the [place] war and also has had it it due to medication interaction; the rest of the hx. is as noted elsewhere; he has been seen by # consultants. He is passing gas and moving his bowels. PMHx: gout/afib/NIDDM/ htn PSHx: transphenoidal pituitary resection Home Medications Medication Instructions Recorded Colchicine 0.6 mg PO BID PRN 11/28/17 Furosemide 40 mg PO DAILY 11/28/17 Methylprednisolone [Medrol Dose See Taper PO DAILY 11/28/17 Morgan] Olmesartan/Hydrochlorothiazide 1 each PO DAILY 11/28/17 [Olmesartan-Hctz 40-25 mg Tab] Oxycodone HCl 10 mg PO QID 11/28/17 Simvastatin 40 mg PO DAILY 11/28/17 Warfarin Na [Coumadin] 10 mg PO DAILY 11/28/17 metFORMIN HCL [Metformin HCl] 500 mg PO DAILY 11/28/17 Allergies Allergy/AdvReac Type Severity Reaction Status Date / Time No Known Allergies Allergy Verified 12/08/15 11:21 PHYSICAL EXAM: GENERAL: Awake, alert, and fully oriented, in no acute distress. HEAD: Normal with no signs of trauma. EYES: sclera anicteric, conjunctiva clear. NECK: Normal ROM, supple without lymphadenopathy, JVD, or masses. ABDOMEN: Soft, nontender, diffusely softly distended and tympanitic, normoactive bowel sounds, no guarding, no rebound, no masses. No organomegaly. No hernias. MUSCULOSKELETAL: Normal ROM at all joints. No bony deformities or tenderness. No CVA tenderness. UPPER EXTREMITIES: 2+ pulses, warm, well-perfused. No cyanosis. Cap refill <2 seconds. LOWER EXTREMITIES: 2+ pulses, warm, well-perfused. No calf tenderness. . peripheral edema and VS dermatitis is present. NEUROLOGICAL: Normal speech, gait not observed. PSYCH: Cooperative. Good eye contact. Appropriate mood and affect. SKIN: Warm, dry, normal turgor, no rashes or lesions noted. venous stasis changes both lowre extremities Vital Signs Temperature 98.2 F 12/02/17 06:59 Pulse Rate 79 12/02/17 06:59 Respiratory Rate 20 12/02/17 08:29 Blood Pressure 159/97 12/02/17 06:59 O2 Sat by Pulse Oximetry (%) 98 12/02/17 08:29 Lab Results WBC 12.5 K/mm3 (4.0-10.0) H 12/02/17 07:00 RBC 3.84 M/mm3 (4.00-5.60) L 12/02/17 07:00 Hgb 11.4 GM/dL (11.7-16.9) L 12/02/17 07:00 Hct 34.6 % (35.4-49) L 12/02/17 07:00 MCV 90.2 fl (80-96) 12/02/17 07:00 MCHC 33.0 g/dl (32.0-35.9) 12/02/17 07:00 RDW 16.5 % (11.9-15.9) H 12/02/17 07:00 Plt Count 321 K/MM3 (134-434) 12/02/17 07:00 Sodium 142 mmol/L (136-145) 12/02/17 07:00 Potassium 4.0 mmol/L (3.5-5.1) 12/02/17 07:00 Chloride 105 mmol/L (98-107) 12/02/17 07:00 Carbon Dioxide 29 mmol/L (21-32) 12/02/17 07:00 Anion Gap 8 MMOL/L (8-16) 12/02/17 07:00 BUN 34 mg/dL (7-18) H 12/02/17 07:00 Creatinine 1.1 mg/dL (0.55-1.3) 12/02/17 07:00 Random Glucose 126 mg/dL (74-106) H 12/02/17 07:00 Calcium 8.3 mg/dL (8.5-10.1) L 12/02/17 07:00 INR 5.36 (0.83-1.09) H* 12/02/17 07:00 Imaging w/u to date reviewed IMP:dyspepsia/nausea of ? origin. PLAN: I do not believe his problem is related to symptomatic gallbladder disease as he does not improve w/NPO/IVF etc.; in addition this sounds like an acute exacerbation of a chronic problem; perhaps his nausea is of central origin and possibly related to his h/o a previous pituitary tumor ?; would continue w/u and f/u recommendations of GI as outlined ; will f/u.?? need for EGD ??. Bennett Bejarano MD FACS
--- NOTE | 2017-12-02 14:15 | PN ---
Progress Note, Physician History of Present Illness: Pt seen and examined at bedside. He is awake and alert. He denies shortness of breath. He says that he was able to tolerate lunch. He denies abd pain. - Current Medication List Current Medications: Active Medications Atorvastatin Calcium (Lipitor -) 20 mg PO HS [facility] Last Admin: 12/01/17 22:02 Dose: 20 mg Insulin Aspart (Novolog Vial Sliding Scale -) 1 vial SQ TIDAC [facility]; Protocol Last Admin: 12/02/17 12:09 Dose: Not Given Ondansetron HCl (Zofran -) 4 mg PO Q6H PRN PRN Reason: NAUSEA Last Admin: 12/02/17 08:23 Dose: 4 mg Pantoprazole Sodium (Protonix -) 40 mg PO DAILY [facility] Last Admin: 12/02/17 09:18 Dose: 40 mg Potassium Citrate/Citric Acid (Cytra-K -) 20 meq PO DAILY [facility] Last Admin: 12/02/17 09:18 Dose: 20 meq Warfarin Sodium (Coumadin -) 5 mg PO DAILY@1800 [facility] Last Admin: 12/01/17 17:56 Dose: Not Given - Objective Vital Signs: Vital Signs Temperature 97.7 F 12/02/17 08:25 Pulse Rate 68 12/02/17 10:30 Respiratory Rate 20 12/02/17 08:29 Blood Pressure 160/98 12/02/17 10:30 O2 Sat by Pulse Oximetry (%) 98 12/02/17 08:29 Constitutional: Yes: Calm Eyes: Yes: Conjunctiva Clear HENT: Yes: Atraumatic Neck: Yes: Supple Cardiovascular: Yes: S1, S2 Respiratory: Yes: CTA Bilaterally Gastrointestinal: Yes: Soft, Abdomen, Obese Genitourinary: Yes: WNL Musculoskeletal: Yes: WNL Edema: LLE: Trace, RLE: Trace Integumentary: Yes: Venous Stasis Changes Neurological: Yes: Oriented Psychiatric: Yes: Oriented Labs: CBC, BMP 12/02/17 07:00 12/02/17 07:00 INR, PTT INR 5.36 (0.83-1.09) H* 12/02/17 07:00 Problem List - Problems (1) Azotemia Code(s): R79.89 - OTHER SPECIFIED ABNORMAL FINDINGS OF BLOOD CHEMISTRY (2) Sepsis Code(s): A41.9 - SEPSIS, UNSPECIFIED ORGANISM Qualifiers: Sepsis type: sepsis due to unspecified organism Qualified Code(s): A41.9 - Sepsis, unspecified organism Assessment/Plan Current Medications Generic Name Dose Route Start Last Admin Trade Name Freq PRN Reason Stop Dose Admin Atorvastatin Calcium 20 mg 12/01/17 22:00 12/01/17 22:02 Lipitor - PO 20 mg HS [facility] Administration Insulin Aspart 1 vial 12/02/17 07:00 12/02/17 12:09 Novolog Vial Sliding Scale - SQ Not Given TIDAC [facility] Protocol Ondansetron HCl 4 mg 12/01/17 16:19 12/02/17 08:23 Zofran - PO 4 mg Q6H PRN Administration NAUSEA Pantoprazole Sodium 40 mg 12/02/17 10:00 12/02/17 09:18 Protonix - PO 40 mg DAILY [facility] Administration Potassium Citrate/Citric Acid 20 meq 12/02/17 10:00 12/02/17 09:18 Cytra-K - PO 20 meq DAILY [facility] Administration Warfarin Sodium 5 mg 12/01/17 18:00 12/01/17 17:56 Coumadin - PO Not Given DAILY@1800 [facility] Laboratory Tests 11/30/17 13:08 LUCIA Screen Negative c-ANCA Pending Proteinase 3 (PR3) Pending p-ANCA Pending Atypical p-ANCA Pending Myeloperoxidase Ab Pending Double Strand DNA Ab <1 Glomerular Base Memb Ab Pending Hep Bs Antigen Negative Hep Bs Antibody Non reactive Hep B Core Total Ab Negative HCV Quantitation Pending Impression 1. Azotemia 2. diarrhea 3. gout 4. ileus 5. pericardial effusion 6. DM 7. 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
--- NOTE | 2017-12-02 15:53 | PN ---
Progress Note (short form) - Note Progress Note: Patient is feeling better today, the 1st day that he tolerates food. Vital Signs Temperature 98.4 F 12/02/17 15:33 Pulse Rate 71 12/02/17 15:33 Respiratory Rate 18 12/02/17 15:33 Blood Pressure 150/79 12/02/17 15:33 O2 Sat by Pulse Oximetry (%) 98 12/02/17 08:29 GENERAL: The patient is awake, alert, and fully oriented, in no distress. HEAD: Normal with no signs of trauma. EYES: PERRL, extraocular movements intact, sclera anicteric, conjunctiva clear. ENT: Oropharynx clear without exudates, moist mucous membranes. NECK: Trachea midline, full range of motion, supple. LUNGS: Breath sounds equal, clear to auscultation bilaterally, no wheezes, no accessory muscle use. HEART: Regular rate and rhythm, S1, S2 without murmur, rub or gallop appreciated. ABDOMEN: Obese abdomen. non distended. Soft, nontender to palpation, normoactive bowel sounds, no guarding, no rebound. EXTREMITIES: 1+ DP pulses B/L. 2+ radial pulses B/L. Warm to touch. NEUROLOGICAL: Cranial nerves II through XII grossly intact. Normal speech. PSYCH: Appropriate mood and affect upon my exam today. SKIN: Warm. chronic venous stasis changes. CBCD WBC 12.5 K/mm3 (4.0-10.0) H 12/02/17 07:00 RBC 3.84 M/mm3 (4.00-5.60) L 12/02/17 07:00 Hgb 11.4 GM/dL (11.7-16.9) L 12/02/17 07:00 Hct 34.6 % (35.4-49) L 12/02/17 07:00 MCV 90.2 fl (80-96) 12/02/17 07:00 MCHC 33.0 g/dl (32.0-35.9) 12/02/17 07:00 RDW 16.5 % (11.9-15.9) H 12/02/17 07:00 Plt Count 321 K/MM3 (134-434) 12/02/17 07:00 MPV 9.0 fl (7.5-11.1) 09/15/18 07:00 CMP Sodium 142 mmol/L (136-145) 12/02/17 07:00 Potassium 4.0 mmol/L (3.5-5.1) 12/02/17 07:00 Chloride 105 mmol/L (98-107) 12/02/17 07:00 Carbon Dioxide 29 mmol/L (21-32) 12/02/17 07:00 Anion Gap 8 MMOL/L (8-16) 12/02/17 07:00 BUN 34 mg/dL (7-18) H 12/02/17 07:00 Creatinine 1.1 mg/dL (0.55-1.3) 12/02/17 07:00 Creat Clearance w eGFR > 60 (>60) 12/02/17 07:00 Random Glucose 126 mg/dL (74-106) H 12/02/17 07:00 Calcium 8.3 mg/dL (8.5-10.1) L 12/02/17 07:00 Total Bilirubin 1.2 mg/dL (0.2-1.0) H 12/02/17 07:00 AST 19 U/L (15-37) 12/02/17 07:00 ALT 28 U/L (13-61) 12/02/17 07:00 Alkaline Phosphatase 90 U/L (45-117) 12/02/17 07:00 Total Protein 5.9 g/dl (6.4-8.2) L 12/02/17 07:00 Albumin 2.8 g/dl (3.4-5.0) L 12/02/17 07:00 CARDIAC ENZYMES Creatine Kinase 280 IU/L (39-308) 11/27/17 22:10 Troponin I 0.10 ng/ml (0.00-0.05) H 11/28/17 07:08 Current Medications Generic Name Dose Route Start Last Admin Trade Name Freq PRN Reason Stop Dose Admin Atorvastatin Calcium 20 mg 12/01/17 22:00 12/01/17 22:02 Lipitor - PO 20 mg HS [facility] Administration Insulin Aspart 1 vial 12/02/17 07:00 12/02/17 12:09 Novolog Vial Sliding Scale - SQ Not Given TIDAC [facility] Protocol Ondansetron HCl 4 mg 12/01/17 16:19 12/02/17 08:23 Zofran - PO 4 mg Q6H PRN Administration NAUSEA Pantoprazole Sodium 40 mg 12/02/17 10:00 12/02/17 09:18 Protonix - PO 40 mg DAILY [facility] Administration Potassium Citrate/Citric Acid 20 meq 12/02/17 10:00 12/02/17 09:18 Cytra-K - PO 20 meq DAILY [facility] Administration Warfarin Sodium 5 mg 12/01/17 18:00 12/01/17 17:56 Coumadin - PO Not Given DAILY@1800 [facility] Home Medications Medication Instructions Recorded Colchicine 0.6 mg PO BID PRN 11/28/17 Furosemide 40 mg PO DAILY 11/28/17 Methylprednisolone [Medrol Dose See Taper PO DAILY 11/28/17 Morgan] Olmesartan/Hydrochlorothiazide 1 each PO DAILY 11/28/17 [Olmesartan-Hctz 40-25 mg Tab] Oxycodone HCl 10 mg PO QID 11/28/17 Simvastatin 40 mg PO DAILY 11/28/17 Warfarin Na [Coumadin] 10 mg PO DAILY 11/28/17 metFORMIN HCL [Metformin HCl] 500 mg PO DAILY 11/28/17 11/27/17 16:10 Blood - Peripheral Venous Blood Culture - Preliminary NO GROWTH OBTAINED AFTER 96 HOURS, INCUBATION TO CONTINUE FOR 1 DAYS. 11/27/17 15:50 Blood - Peripheral Venous Blood Culture - Preliminary NO GROWTH OBTAINED AFTER 96 HOURS, INCUBATION TO CONTINUE FOR 1 DAYS. 11/29/17 11:30 Stool Clostridium difficile Antigen (CLAUDIA) - Final 11/29/17 11:30 Stool Clostridium difficile Toxin Assay - Final 11/27/17 16:00 Urine - Urine - Catheterized Urine Culture - Final NO GROWTH OBTAINED ASSESSMENT AND PLAN: 72 y/o man with h/o DM , A fib, HTN, HLP, s/p PPM , chronic back pain, gout, brain mass s/p resection,who presented with b/l feet pain. # ELevated LFTs trending down and able to tolerate diet. No nausea or vomiting. GI consult appreciated . If tolerates diet, will check with GI , for further w/u as an outpatient. # A fib:Coumadin On hold since inr is 5.36 today , will recheck in am # Polyarticular gout imrpoved ,completed steroid . hold colchicine since Elevated creatinine , No Nsaids as well # Leukocytosis imrpoving ,most likely due to steroids . cxray and UA are not suggestive of infection. No antibiotic for now , since no source of infection is noted. follow urine and blood cx. # ROSARIO : most likely due to diuretics , improved off Losartan, kidneys appear unremarkable on US # Trop leak: most likely due to demand ischemia, EKG with TWI in anteroseptal and lateral leads. no old EKG to compare to. No CP . echo, to explore the pericardial effusion seen on CT # DM, HTN: continue home meds. DVTpx : on coumadin on hold since supratherapeutic Visit type - Emergency Visit Emergency Visit: Yes ED Registration Date: 11/27/17 Care time: The patient presented to the Emergency Department on the above date and was hospitalized for further evaluation of their emergent condition. - New Patient This patient is new to me today: No - Critical Care Critical Care patient: No - Discharge Referral Referred to [facility] Med P.C.: No
[2017-12-02 17:22] LABS: ANISOCYTOSIS 1+; MACROCYTOSIS 0; PLATELET ESTIMATE NORMAL
[2017-12-02] MEDS: ATORVASTATIN CA 20 MG TABLET (FP) PO SCH (21:12)
[2017-12-03] MEDS: ONDANSETRON 4 MG TABLET PO PRN ×4 (00:30→19:48)
[2017-12-03] MEDS: INSULIN SLIDING SCALE (NOVOLOG) 1 VIAL SQ SCH ×3 (07:00→16:12)
[2017-12-03 08:08] LABS: PROTHROMBIN TIME (PATIENT) 49.1 SEC (9.7-13.0)
[2017-12-03 08:22] LABS: INR 4.35 (0.83-1.09)
[2017-12-03 08:54] LABS: ALBUMIN 2.7 g/dl (3.4-5.0); ANION GAP 10 MMOL/L (8-16); BLOOD UREA NITROGEN 27 mg/dL (7-18); CALCIUM 8.1 mg/dL (8.5-10.1); CHLORIDE 104 mmol/L (98-107); CO2 28 mmol/L (21-32); GLUCOSE,RANDOM 112 mg/dL (74-106); MAGNESIUM 2.3 mg/dL (1.8-2.4); POTASSIUM 4.2 mmol/L (3.5-5.1); SODIUM 142 mmol/L (136-145)
[2017-12-03 08:58] LABS: ALK PHOS 98 U/L (45-117); BILIRUBIN,TOTAL 1.3 mg/dL (0.2-1.0); CREATININE 1.1 mg/dL (0.55-1.3); SGOT/AST 17 U/L (15-37); SGPT/ALT 25 U/L (13-61); TOT PROT 5.6 g/dl (6.4-8.2)
--- NOTE | 2017-12-03 09:00 | PN ---
Teaching Attending Note Name of Resident: Elba Morris ATTENDING PHYSICIAN STATEMENT I saw and evaluated the patient. I reviewed the resident's note and discussed the case with the resident. I agree with the resident's findings and plan as documented. SUBJECTIVE: Patient is comfortable c/o having LE weakness. OBJECTIVE: Vital Signs Temperature 98.1 F 12/03/17 08:08 Pulse Rate 92 H 12/03/17 08:08 Respiratory Rate 20 12/03/17 08:08 Blood Pressure 148/68 12/03/17 08:08 O2 Sat by Pulse Oximetry (%) 98 12/02/17 21:00 CBCD WBC 12.5 K/mm3 (4.0-10.0) H 12/02/17 07:00 RBC 3.84 M/mm3 (4.00-5.60) L 12/02/17 07:00 Hgb 11.4 GM/dL (11.7-16.9) L 12/02/17 07:00 Hct 34.6 % (35.4-49) L 12/02/17 07:00 MCV 90.2 fl (80-96) 12/02/17 07:00 MCHC 33.0 g/dl (32.0-35.9) 12/02/17 07:00 RDW 16.5 % (11.9-15.9) H 12/02/17 07:00 Plt Count 321 K/MM3 (134-434) 12/02/17 07:00 MPV 9.0 fl (7.5-11.1) 12/02/17 07:00 CMP Sodium 142 mmol/L (136-145) 12/03/17 06:45 Potassium 4.2 mmol/L (3.5-5.1) 12/03/17 06:45 Chloride 104 mmol/L (98-107) 12/03/17 06:45 Carbon Dioxide 28 mmol/L (21-32) 12/03/17 06:45 Anion Gap 10 MMOL/L (8-16) 12/03/17 06:45 BUN 27 mg/dL (7-18) H 12/03/17 06:45 Creatinine 1.1 mg/dL (0.55-1.3) 12/03/17 06:45 Creat Clearance w eGFR > 60 (>60) 12/03/17 06:45 Random Glucose 112 mg/dL (74-106) H 12/03/17 06:45 Calcium 8.1 mg/dL (8.5-10.1) L 12/03/17 06:45 Total Bilirubin 1.3 mg/dL (0.2-1.0) H 12/03/17 06:45 AST 17 U/L (15-37) 12/03/17 06:45 ALT 25 U/L (13-61) 12/03/17 06:45 Alkaline Phosphatase 98 U/L (45-117) 12/03/17 06:45 Total Protein 5.6 g/dl (6.4-8.2) L 12/03/17 06:45 Albumin 2.7 g/dl (3.4-5.0) L 12/03/17 06:45 CARDIAC ENZYMES Creatine Kinase 280 IU/L (39-308) 11/27/17 22:10 Troponin I 0.10 ng/ml (0.00-0.05) H 11/28/17 07:08 Current Medications Generic Name Dose Route Start Last Admin Trade Name Freq PRN Reason Stop Dose Admin Atorvastatin Calcium 20 mg 12/01/17 22:00 12/02/17 21:12 Lipitor - PO 20 mg HS [facility] Administration Insulin Aspart 1 vial 12/02/17 07:00 12/03/17 07:00 Novolog Vial Sliding Scale - SQ Not Given TIDAC [facility] Protocol Ondansetron HCl 4 mg 12/01/17 16:19 12/03/17 06:57 Zofran - PO 4 mg Q6H PRN Administration NAUSEA Pantoprazole Sodium 40 mg 12/02/17 10:00 12/02/17 09:18 Protonix - PO 40 mg DAILY [facility] Administration Potassium Citrate/Citric Acid 20 meq 12/02/17 10:00 12/02/17 09:18 Cytra-K - PO 20 meq DAILY [facility] Administration Warfarin Sodium 5 mg 12/01/17 18:00 12/01/17 17:56 Coumadin - PO Not Given DAILY@1800 [facility] Home Medications Medication Instructions Recorded Colchicine 0.6 mg PO BID PRN 11/28/17 Furosemide 40 mg PO DAILY 11/28/17 Methylprednisolone [Medrol Dose See Taper PO DAILY 11/28/17 [facility]] Olmesartan/Hydrochlorothiazide 1 each PO DAILY 09/11/18 [Olmesartan-Hctz 40-25 mg Tab] Oxycodone HCl 10 mg PO QID 11/28/17 Simvastatin 40 mg PO DAILY 11/28/17 Warfarin Na [Coumadin] 10 mg PO DAILY 11/28/17 metFORMIN HCL [Metformin HCl] 500 mg PO DAILY 11/28/17 PE: as per resident's note ASSESSMENT AND PLAN: 72 y/o man with h/o DM , A fib, HTN, HLP, s/p PPM , chronic back pain, gout, brain mass s/p resection,who presented with b/l feet pain. # ELevated LFTs trending down and able to tolerate diet. feels less nauseas ,no vomiting. GI consult appreciated. Further w/u if needed. # A fib:Coumadin On hold since inr is 5.36--> 4.35 today , will recheck in am # Polyarticular gout imrpoved ,completed steroid . hold colchicine since Elevated creatinine improved, No Nsaids as well # Leukocytosis improving , most likely due to steroids . cxray and UA are not suggestive of infection. No antibiotic for now , since no source of infection is noted. follow urine and blood cx. # ROSARIO : improved , likely due to diuretics , improved off Losartan, kidneys appear unremarkable on US # Trop leak: most likely due to demand ischemia, EKG with TWI in anteroseptal and lateral leads. no old EKG to compare to. No CP . # DM, HTN: continue home meds. DVTpx : on coumadin on hold since supratherapeutic. possible dc in am.
--- NOTE | 2017-12-03 09:05 | PN ---
Physical Exam: SUBJECTIVE: Patient seen and examined. Feeling better today. He complains of LE weakness and pain and says he is unable to walk today. OBJECTIVE: Vital Signs Period Temp Pulse Resp BP Sys/Luke Pulse Ox Last 24 Hr 98.1 F-98.5 F 68-92 18-20 144-160/68-98 98 GENERAL: The patient is awake, alert, and fully oriented, in no acute distress. HEAD: Normal with no signs of trauma. EYES: PERRL, extraocular movements intact, sclera anicteric, conjunctiva clear. No ptosis. ENT: oropharynx clear without exudates, moist mucous membranes. NECK: supple. LUNGS: Breath sounds equal, clear to auscultation bilaterally HEART: Regular rate and rhythm, S1, S2 without murmur ABDOMEN: obese, nontender, nondistended, normoactive bowel sounds EXTREMITIES: 2+ pulses, warm, well-perfused, no edema. NEUROLOGICAL: Cranial nerves II through XII grossly intact. Normal speech, gait not observed. SKIN: Venous Stasis Changes Laboratory Results - last 24 hr 12/02/17 12/02/17 12/02/17 07:00 11:29 16:43 WBC 12.5 H RBC 3.84 L Hgb 11.4 L Hct 34.6 L MCV 90.2 MCH 29.8 MCHC 33.0 RDW 16.5 H Plt Count 321 MPV 9.0 Absolute Neuts (auto) 10.2 H Neutrophils % 81.9 Neutrophils % (Manual) 81.0 Band Neutrophils % 2.1 Lymphocytes % 7.5 L D Lymphocytes % (Manual) 7.4 L D Monocytes % 7.8 Monocytes % (Manual) 3 L Eosinophils % 1.9 D Eosinophils % (Manual) 3.2 D Basophils % 0.9 Basophils % (Manual) 0.0 Myelocytes % (Man) 2 Promyelocytes % (Man) 0 Blast Cells % (Manual) 0 Nucleated RBC % 0 Metamyelocytes 1 Hypochromia 0 Platelet Estimate Normal Polychromasia 0 Poikilocytosis 0 Anisocytosis 1+ Microcytosis 1+ Macrocytosis 0 PT with INR INR Sodium Potassium Chloride Carbon Dioxide Anion Gap BUN Creatinine Creat Clearance w eGFR POC Glucometer 147 145 Random Glucose Calcium Magnesium Total Bilirubin AST ALT Alkaline Phosphatase Total Protein Albumin 12/03/17 12/03/17 12/03/17 06:45 06:45 06:59 WBC RBC Hgb Hct MCV MCH MCHC RDW Plt Count MPV Absolute Neuts (auto) Neutrophils % Neutrophils % (Manual) Band Neutrophils % Lymphocytes % Lymphocytes % (Manual) Monocytes % Monocytes % (Manual) Eosinophils % Eosinophils % (Manual) Basophils % Basophils % (Manual) Myelocytes % (Man) Promyelocytes % (Man) Blast Cells % (Manual) Nucleated RBC % Metamyelocytes Hypochromia Platelet Estimate Polychromasia Poikilocytosis Anisocytosis Microcytosis Macrocytosis PT with INR 49.10 H INR 4.35 H* Sodium 142 Potassium 4.2 Chloride 104 Carbon Dioxide 28 Anion Gap 10 BUN 27 H Creatinine 1.1 Creat Clearance w eGFR > 60 POC Glucometer 119 Random Glucose 112 H Calcium 8.1 L Magnesium 2.3 Total Bilirubin 1.3 H AST 17 ALT 25 Alkaline Phosphatase 98 Total Protein 5.6 L Albumin 2.7 L Active Medications Generic Name Dose Route Start Last Admin Trade Name Freq PRN Reason Stop Dose Admin Atorvastatin Calcium 20 mg 12/01/17 22:00 12/02/17 21:12 Lipitor - PO 20 mg HS [facility] Administration Insulin Aspart 1 vial 12/02/17 07:00 12/03/17 07:00 Novolog Vial Sliding Scale - SQ Not Given TIDAC [facility] Protocol Ondansetron HCl 4 mg 12/01/17 16:19 12/03/17 06:57 Zofran - PO 4 mg Q6H PRN Administration NAUSEA Pantoprazole Sodium 40 mg 12/02/17 10:00 12/02/17 09:18 Protonix - PO 40 mg DAILY [facility] Administration Potassium Citrate/Citric Acid 20 meq 12/02/17 10:00 12/02/17 09:18 Cytra-K - PO 20 meq DAILY [facility] Administration Warfarin Sodium 5 mg 12/01/17 18:00 12/01/17 17:56 Coumadin - PO Not Given DAILY@1800 [facility] ASSESSMENT/PLAN: 72 y/o man with h/o DM , A fib, HTN, HLP, s/p PPM , chronic back pain, gout, brain mass s/p resection,who presented with b/l feet pain. #Elevated LFTs -trending down -patient tolerating diet -FU gi reccs -follow up GI outpatient #Supratherapeutic INR -4.35 today -cont to hold warfarin -FU am INR #Leukocytosis -likely from steroid use, unlikely infectious -cultures negative -cxray and UA are not suggestive of infection #Gout -improved -completed steroids -colchicine held due to elevated cr. -no nsaids were given due to cr #ROSARIO -resolved -monitor -avoid nephrotoxins -off losartan -KUS unremarkable. #DM/HTN -BGM -ISS -metformin held #FEN -no iv fluids -monitor -diabetic diet #DVT -supratherapeutic INR Visit type - Emergency Visit Emergency Visit: Yes ED Registration Date: 11/27/17 Care time: The patient presented to the Emergency Department on the above date and was hospitalized for further evaluation of their emergent condition. - New Patient This patient is new to me today: Yes Date on this admission: 12/03/17 - Critical Care Critical Care patient: No
[2017-12-03] MEDS: PANTOPRAZOLE 40 MG TABLET (FP) PO SCH (09:20)
[2017-12-03] MEDS: POTASSIUM CITRATE/CITRIC ACID 2 MEQ/ML ML PO SCH (09:20)
[2017-12-03] MEDS: ACETAMINOPHEN 325 MG TABLET (FP) PO PRN (10:23)
--- NOTE | 2017-12-03 11:20 | PN ---
Progress Note (short form) - Note Progress Note: Attending Surgeon Same c/o's; nausea persists; unable to tolerate anything ?? VSS AF abdo-benign IMP: no evidence of an acute surgical abdomen or problem PLAN: As per primary team. Bennett Bejarano MD FACS
--- NOTE | 2017-12-03 14:52 | PN ---
Progress Note, Physician History of Present Illness: Pt seen and examined at bedside. He is awake and alert. He denies shortness of breath. - Current Medication List Current Medications: Active Medications Acetaminophen (Tylenol -) 650 mg PO Q6H PRN PRN Reason: PAIN LEVEL 4 - 6 Last Admin: 12/03/17 10:23 Dose: 650 mg Atorvastatin Calcium (Lipitor -) 20 mg PO HS [facility] Last Admin: 12/02/17 21:12 Dose: 20 mg Insulin Aspart (Novolog Vial Sliding Scale -) 1 vial SQ TIDAC [facility]; Protocol Last Admin: 12/03/17 11:19 Dose: Not Given Ondansetron HCl (Zofran -) 4 mg PO Q6H PRN PRN Reason: NAUSEA Last Admin: 12/03/17 13:26 Dose: 4 mg Pantoprazole Sodium (Protonix -) 40 mg PO DAILY [facility] Last Admin: 12/03/17 09:20 Dose: 40 mg Potassium Citrate/Citric Acid (Cytra-K -) 20 meq PO DAILY [facility] Last Admin: 12/03/17 09:20 Dose: 20 meq Warfarin Sodium (Coumadin -) 5 mg PO DAILY@1800 [facility] Last Admin: 12/01/17 17:56 Dose: Not Given - Objective Vital Signs: Vital Signs Temperature 98.3 F 12/03/17 08:40 Pulse Rate 70 12/03/17 08:40 Respiratory Rate 16 12/03/17 08:40 Blood Pressure 153/81 12/03/17 08:40 O2 Sat by Pulse Oximetry (%) 98 12/02/17 21:00 Constitutional: Yes: Calm HENT: Yes: Atraumatic Cardiovascular: Yes: S1, S2 Respiratory: Yes: CTA Bilaterally Gastrointestinal: Yes: Soft, Abdomen, Obese Genitourinary: Yes: WNL Musculoskeletal: Yes: WNL Edema: LLE: Trace, RLE: Trace Integumentary: Yes: Venous Stasis Changes Neurological: Yes: Oriented Psychiatric: Yes: Oriented Labs: CBC, BMP 12/02/17 07:00 12/03/17 06:45 INR, PTT INR 4.35 (0.83-1.09) H* 12/03/17 06:45 Problem List - Problems (1) Azotemia Code(s): R79.89 - OTHER SPECIFIED ABNORMAL FINDINGS OF BLOOD CHEMISTRY (2) Sepsis Code(s): A41.9 - SEPSIS, UNSPECIFIED ORGANISM Qualifiers: Sepsis type: sepsis due to unspecified organism Qualified Code(s): A41.9 - Sepsis, unspecified organism Assessment/Plan Current Medications Generic Name Dose Route Start Last Admin Trade Name Freq PRN Reason Stop Dose Admin Acetaminophen 650 mg 12/03/17 10:12 12/03/17 10:23 Tylenol - PO 650 mg Q6H PRN Administration PAIN LEVEL 4 - 6 Atorvastatin Calcium 20 mg 12/01/17 22:00 12/02/17 21:12 Lipitor - PO 20 mg HS [facility] Administration Insulin Aspart 1 vial 12/02/17 07:00 12/03/17 11:19 Novolog Vial Sliding Scale - SQ Not Given TIDAC [facility] Protocol Ondansetron HCl 4 mg 12/01/17 16:19 12/03/17 13:26 Zofran - PO 4 mg Q6H PRN Administration NAUSEA Pantoprazole Sodium 40 mg 12/02/17 10:00 12/03/17 09:20 Protonix - PO 40 mg DAILY [facility] Administration Potassium Citrate/Citric Acid 20 meq 12/02/17 10:00 12/03/17 09:20 Cytra-K - PO 20 meq DAILY [facility] Administration Warfarin Sodium 5 mg 12/01/17 18:00 12/01/17 17:56 Coumadin - PO Not Given DAILY@1800 [facility] Laboratory Tests 11/30/17 13:08 HIPOLITO M-Maximo Not observed LUCIA Screen Negative c-ANCA Pending Proteinase 3 (PR3) Pending p-ANCA Pending Atypical p-ANCA Pending Myeloperoxidase Ab Pending Double Strand DNA Ab <1 Glomerular Base Memb Ab Pending Hepatitis A Ab Total Negative Hep Bs Antigen Negative Hep Bs Antibody Non reactive Hep B Core Total Ab Negative HCV Quantitation Pending Impression 1. Azotemia 2. diarrhea 3. gout 4. ileus 5. pericardial effusion 6. DM 7. hematuria Plan - renal function is stable - serologies pending - can see as outpt - pt is tolerating diet - cardio input appreciated - avoid nsaids
[2017-12-03] MEDS: ATORVASTATIN CA 20 MG TABLET (FP) PO SCH (21:10)
[2017-12-03] MEDS ORDERED: ONDANSETRON 4 MG TABLET PO ONE (23:58)
[2017-12-04] MEDS: INSULIN SLIDING SCALE (NOVOLOG) 1 VIAL SQ SCH ×3 (07:26→17:57)
[2017-12-04 07:29] LABS: HEMATOCRIT 32.5 % (35.4-49); HEMOGLOBIN 10.7 GM/dL (11.7-16.9); MCH 29.8 pg (25.7-33.7); MEAN CELL VOLUME 90.3 fl (80-96); MEAN PLT VOLUME 8.6 fl (7.5-11.1); PLATELET COUNT 299 K/MM3 (134-434); RDW 16.5 % (11.9-15.9); WHITE BLOOD COUNT 13.3 K/mm3 (4.0-10.0)
[2017-12-04] MEDS: ONDANSETRON 4 MG TABLET PO PRN ×2 (07:29→21:14)
[2017-12-04 07:50] LABS: INR 3.05 (0.83-1.09); PROTHROMBIN TIME (PATIENT) 34.5 SEC (9.7-13.0)
[2017-12-04 07:59] LABS: ALBUMIN 2.7 g/dl (3.4-5.0); ANION GAP 11 MMOL/L (8-16); BLOOD UREA NITROGEN 19 mg/dL (7-18); CALCIUM 8.1 mg/dL (8.5-10.1); CHLORIDE 102 mmol/L (98-107); CO2 28 mmol/L (21-32); GLUCOSE,RANDOM 108 mg/dL (74-106); SGOT/AST 20 U/L (15-37); SGPT/ALT 24 U/L (13-61); SODIUM 141 mmol/L (136-145)
[2017-12-04 08:01] LABS: ALK PHOS 120 U/L (45-117); BILIRUBIN,TOTAL 1.4 mg/dL (0.2-1.0); TOT PROT 5.5 g/dl (6.4-8.2)
--- NOTE | 2017-12-04 10:48 | PN ---
Progress Note, [employer] - Note Progress Note: Appreciate GI/Sx input. Pt c/o nausea/queasy feeling, but no vomiting. Pt is now eating well, with use of Zofran to manage nausea. No signs of dysphagia.Pt ate waffle,oatmeal, 2 cups milk. No further Speech Pathology follow up indicated at this time.
[2017-12-04] MEDS: PANTOPRAZOLE 40 MG TABLET (FP) PO SCH (11:01)
[2017-12-04] MEDS: COLCHICINE 0.6 MG TABLET (FP) PO SCH ×2 (11:01→21:14)
[2017-12-04] MEDS: POTASSIUM CITRATE/CITRIC ACID 2 MEQ/ML ML PO SCH (11:02)
[2017-12-04 14:17] LABS: ANTIGLOMERULAR BASEMENT MEN.AB 3 units (0-20)
--- NOTE | 2017-12-04 14:17 | PN ---
Physical Exam: SUBJECTIVE: Patient seen and examined at bedside this morning. Still admits to nausea and dry heaving, denies vomiting. Admits one solid bowel movement yesterday, non bloody, non melanotic. No dysuria, hematuria. Admits worsening pain in B/L knees and ankles, similar to initial presentation. today describes left knee pain worse than right knee pain. OBJECTIVE: Vital Signs Period Temp Pulse Resp BP Sys/Luke Pulse Ox Last 24 Hr 98.1 F-98.9 F 63-83 18-20 143-161/70-82 98 GENERAL: The patient is awake, alert, and fully oriented, in mild distress. HEAD: Normal with no signs of trauma. EYES: PERRL, extraocular movements intact, sclera anicteric, conjunctiva clear. ENT: Oropharynx clear without exudates, moist mucous membranes. NECK: Trachea midline, full range of motion, supple. LUNGS: Breath sounds equal, clear to auscultation bilaterally, no wheezes, no accessory muscle use. HEART: Regular rate and rhythm, S1, S2 without murmur, rub or gallop appreciated. ABDOMEN: Obese abdomen. Distended. Soft, nontender to palpation, normoactive bowel sounds, no guarding, no rebound. EXTREMITIES: 1+ DP pulses B/L. 2+ radial pulses B/L. Warm to touch. Tender to deeper palpation. Pain to palpation of B/L knees at joint line. NEUROLOGICAL: Cranial nerves II through XII grossly intact. Normal speech. Upper extremity strength 4/5 B/L in flexion extension, abduction, adduction. Hip flexion, extension 4/5 B/L. Knee flexion and extension 4/5 B/L. Dorsiflexion and Plantarflexion 4/5 B/L. Lower extremity strength limited by pain B/L. PSYCH: Appropriate mood and affect upon my exam today. SKIN: Warm. Discoloration (hyperpigmentation) in B/L lower extremities at level of medial/ lateral malleolus extending superiorly 5-6 inches B/L. Laboratory Results - last 24 hr 12/03/17 12/04/17 12/04/17 16:10 06:03 06:30 WBC RBC Hgb Hct MCV MCH MCHC RDW Plt Count MPV PT with INR 34.50 H INR 3.05 H Sodium Potassium Chloride Carbon Dioxide Anion Gap BUN Creatinine Creat Clearance w eGFR POC Glucometer 138 115 Random Glucose Calcium Total Bilirubin AST ALT Alkaline Phosphatase Total Protein Albumin 12/04/17 12/04/17 12/04/17 06:30 06:30 12:32 WBC 13.3 H RBC 3.60 L Hgb 10.7 L Hct 32.5 L MCV 90.3 MCH 29.8 MCHC 33.0 RDW 16.5 H Plt Count 299 MPV 8.6 PT with INR INR Sodium 141 Potassium 4.0 Chloride 102 Carbon Dioxide 28 Anion Gap 11 BUN 19 H Creatinine 1.0 Creat Clearance w eGFR > 60 POC Glucometer 150 Random Glucose 108 H Calcium 8.1 L Total Bilirubin 1.4 H AST 20 ALT 24 Alkaline Phosphatase 120 H Total Protein 5.5 L Albumin 2.7 L Active Medications Generic Name Dose Route Start Last Admin Trade Name Freq PRN Reason Stop Dose Admin Acetaminophen 650 mg 12/03/17 10:12 12/03/17 10:23 Tylenol - PO 650 mg Q6H PRN Administration PAIN LEVEL 4 - 6 Atorvastatin Calcium 20 mg 12/01/17 22:00 12/03/17 21:10 Lipitor - PO 20 mg HS [facility] Administration Colchicine 0.6 mg 12/04/17 10:00 12/04/17 11:01 Colcrys - PO 0.6 mg BID [facility] Administration Insulin Aspart 1 vial 12/02/17 07:00 12/04/17 12:44 Novolog Vial Sliding Scale - SQ Not Given TIDAC [facility] Protocol Ondansetron HCl 4 mg 12/01/17 16:19 12/04/17 07:29 Zofran - PO 4 mg Q6H PRN Administration NAUSEA Pantoprazole Sodium 40 mg 12/02/17 10:00 12/04/17 11:01 Protonix - PO 40 mg DAILY [facility] Administration Potassium Citrate/Citric Acid 20 meq 12/02/17 10:00 12/04/17 11:02 Cytra-K - PO 20 meq DAILY [facility] Administration Warfarin Sodium 5 mg 12/01/17 18:00 12/01/17 17:56 Coumadin - PO Not Given DAILY@1800 [facility] IMAGING: CT abdomen/ pelvis showed: hepatic steatosis, small pericardial effusion, cholelithiasis without evidence cholecystitis. Cardiac ECHO: severe dilation left atrium and right atrium, with atrial septal aneurysmal. Severe MR, moderate to severe TR. LVEF is normal. No pericardial effusion noted. ASSESSMENT/PLAN: Patient is a 72 year old male with history of Gout, DM, HLD, Afib on Coumadin presents with complaint of B/L lower extremity pain. Admitted for cellulitis vs gout flare up. Gout flare-up -Likely gout d/t patient's history of gout, recently run out of Colchicine. No fluctuance or erythema of the joints appreciated that could suggest gout. -Patient completed three days of Prednisone. -Potassium citrate 20meq PO daily -Reinstate colchicine 0.6mg PO BID -As per discussion with ID, will advise patient of importance to follow up with Training Personnel Supervisor outpatient. GI consult requested. ROSARIO -Improving. Creatinine 1.0 today. Baseline Cr at 1.2 as per BMP from Dr. Loco. -Nephrology consult (Dr. Gabriel) appreciated: IVNS discontinued. FeNa was 0.1% indicating prerenal etiology, likely secondary to the diarrhea. -Bladder US shows no intrinsic bladder abnormalities, without significant post void residual volume. -F/U Antinuclear AB, C-ANCA, P-ANCA, atypical P-anca, Antiglomerular basement AB , ds-DNA AB, Myeloperoxidase AB, Proteinase 3, HIPOLITO M-spike. -Hepatitis A/B/C serology- Negative Nausea -Patient nauseous, and dry heaving. Not able to tolerate his breakfast this morning. -GI consult (Dr. Romero) appreciated: Will begin Omeprazole 40mg QD, and D/C cholestyramine. Lipase ordered. Surgical consult placed. -Surgical consult (Dr. Bejarano) appreciated. Leukocytosis -May be due to steroids given for the patient's ?gout. However unlikely d/t cellulitis as there is no erythema of inflammation. -C.diff cultures- negative for C.diff -Stool cultures- negative for growth at 24 hours -Blood cultures preliminary negative for growth after 5 days -Urine cultures- Negative for growth. -ID consult (Dr. Galvez) appreciated. Troponinemia -Trended down 0.15 -> 0.12 -> 0.10 -EKG showed: Afib with ocassional ventricular paced complexes, RBBB, left posterior fascicular block. T wave abnormality seen in anterior-septal leads. -Likely due to patient's acute renal failure. -Cardiac ECHO noted no pericardial effusion -Cardiac consult (Dr. Huang) appreciated: Afib rate controlled without medication. Will d/c telemetry. Cardiac ECHO similar to prior study in 2017. Afib -Coumadin 5 mg PO QD- held due to supra-therapeutic INR -Will follow INR. HTN -Hold Olmesartan-HCTZ 40-25. HLD -Atorvastatin 20mg PO HS DM -Hold Metformin 500mg PO QD -ISS -BGM FEN -No IV fluids. Encourage judicious oral hydration. -Will follow CMP -Diabetic diet Prophylaxis -Warfarin 5mg PO QD- Held due to supratherapeutic INR Disposition -Continue care in medical-surgical floor. Visit type - Emergency Visit Emergency Visit: Yes ED Registration Date: 11/27/17 Care time: The patient presented to the Emergency Department on the above date and was hospitalized for further evaluation of their emergent condition. - New Patient This patient is new to me today: No - Critical Care Critical Care patient: No - Discharge Referral Referred to [facility] Med P.C.: No
--- NOTE | 2017-12-04 15:36 | PN ---
Progress Note (short form) - Note Progress Note: s: complains of bilateral foot pain, nausea, dry heaves. no chest pain, palps, dizzy, lightheadedness, edema o: Vital Signs Period Temp Pulse Resp BP Sys/Luke Pulse Ox Last 24 Hr 98.1 F-98.9 F 63-83 18-20 143-161/70-82 98 nad no jvd irreg,s1s2 no mrg cta bl nl eff aaox3 no le e/c/c abd nontender, +bs, nd no jaundice diaphoresis pos dp pt, no carotid bruit Current Medications Acetaminophen (Tylenol -) 650 mg PO Q6H PRN PRN Reason: PAIN LEVEL 4 - 6 Last Admin: 12/03/17 10:23 Dose: 650 mg Atorvastatin Calcium (Lipitor -) 20 mg PO HS [facility] Last Admin: 12/03/17 21:10 Dose: 20 mg Colchicine (Colcrys -) 0.6 mg PO BID [facility] Last Admin: 12/04/17 11:01 Dose: 0.6 mg Insulin Aspart (Novolog Vial Sliding Scale -) 1 vial SQ TIDAC [facility]; Protocol Last Admin: 12/04/17 12:44 Dose: Not Given Ondansetron HCl (Zofran -) 4 mg PO Q6H PRN PRN Reason: NAUSEA Last Admin: 12/04/17 07:29 Dose: 4 mg Pantoprazole Sodium (Protonix -) 40 mg PO DAILY [facility] Last Admin: 12/04/17 11:01 Dose: 40 mg Potassium Citrate/Citric Acid (Cytra-K -) 20 meq PO DAILY [facility] Last Admin: 12/04/17 11:02 Dose: 20 meq Warfarin Sodium (Coumadin -) 5 mg PO DAILY@1800 [facility] Last Admin: 12/01/17 17:56 Dose: Not Given ecg: afib, rbbb, occ vp rheumatology tele: afib, occ vp rheumatology echo 03/2016: nl lv/rv, maninder, mild-mod mr, mod tr, rvsp 41 echo 11/2017: mild lve, nl lvef, rv tds, maninder, iasa, sev mr, mod-sev tr, nl rvsp- ->on my review, mod mr, mild tr mibi 03/2016: no ischemia, nl lvef cxr: clear lungs a/p: 72 m hx afib, htn, hld, dm, ppm (due to afib with slow VR, biotronik, 2017 here with n/v/d. Nausea - GI following, PRN zofran, taking PO Gout - manage per primary team, on colchicine afib with slow vr s/p ppm: -on coumadin, goal INR 2-3, managing per primary team (has been held for supratherapeutic INR) -echo stable from 03/2016 -rate controlled off meds -ppm done for slow VR,routine office checks htn: -cont home meds hld: -cont statin le edema /venous insuff: -holding lasix, stable
--- NOTE | 2017-12-04 15:38 | PN ---
Progress Note, Physician History of Present Illness: Pt seen and examined at bedside. He is awake and alert. He is tolerating diet. - Current Medication List Current Medications: Active Medications Acetaminophen (Tylenol -) 650 mg PO Q6H PRN PRN Reason: PAIN LEVEL 4 - 6 Last Admin: 12/03/17 10:23 Dose: 650 mg Atorvastatin Calcium (Lipitor -) 20 mg PO HS [facility] Last Admin: 12/03/17 21:10 Dose: 20 mg Colchicine (Colcrys -) 0.6 mg PO BID [facility] Last Admin: 12/04/17 11:01 Dose: 0.6 mg Insulin Aspart (Novolog Vial Sliding Scale -) 1 vial SQ TIDAC [facility]; Protocol Last Admin: 12/04/17 12:44 Dose: Not Given Ondansetron HCl (Zofran -) 4 mg PO Q6H PRN PRN Reason: NAUSEA Last Admin: 12/04/17 07:29 Dose: 4 mg Pantoprazole Sodium (Protonix -) 40 mg PO DAILY [facility] Last Admin: 12/04/17 11:01 Dose: 40 mg Potassium Citrate/Citric Acid (Cytra-K -) 20 meq PO DAILY [facility] Last Admin: 12/04/17 11:02 Dose: 20 meq Warfarin Sodium (Coumadin -) 5 mg PO DAILY@1800 [facility] Last Admin: 12/01/17 17:56 Dose: Not Given - Objective Vital Signs: Vital Signs Temperature 98.8 F 12/04/17 06:00 Pulse Rate 77 12/04/17 06:00 Respiratory Rate 20 12/04/17 06:00 Blood Pressure 161/76 12/04/17 06:00 O2 Sat by Pulse Oximetry (%) 98 12/03/17 21:00 Constitutional: Yes: Calm Eyes: Yes: Conjunctiva Clear HENT: Yes: Atraumatic Neck: Yes: Supple Cardiovascular: Yes: S1, S2 Respiratory: Yes: CTA Bilaterally Gastrointestinal: Yes: Soft, Abdomen, Obese Genitourinary: Yes: WNL Musculoskeletal: Yes: WNL Edema: No Neurological: Yes: Oriented Psychiatric: Yes: Oriented Labs: CBC, BMP 12/04/17 06:30 12/04/17 06:30 INR, PTT INR 3.05 (0.83-1.09) H 12/04/17 06:30 Problem List - Problems (1) Azotemia Code(s): R79.89 - OTHER SPECIFIED ABNORMAL FINDINGS OF BLOOD CHEMISTRY (2) Sepsis Code(s): A41.9 - SEPSIS, UNSPECIFIED ORGANISM Qualifiers: Qualified Code(s): A41.9 - Sepsis, unspecified organism Assessment/Plan Current Medications Generic Name Dose Route Start Last Admin Trade Name Freq PRN Reason Stop Dose Admin Acetaminophen 650 mg 12/03/17 10:12 12/03/17 10:23 Tylenol - PO 650 mg Q6H PRN Administration PAIN LEVEL 4 - 6 Atorvastatin Calcium 20 mg 12/01/17 22:00 12/03/17 21:10 Lipitor - PO 20 mg HS [facility] Administration Colchicine 0.6 mg 12/04/17 10:00 12/04/17 11:01 Colcrys - PO 0.6 mg BID [facility] Administration Insulin Aspart 1 vial 12/02/17 07:00 12/04/17 12:44 Novolog Vial Sliding Scale - SQ Not Given TIDAC [facility] Protocol Ondansetron HCl 4 mg 12/01/17 16:19 12/04/17 07:29 Zofran - PO 4 mg Q6H PRN Administration NAUSEA Pantoprazole Sodium 40 mg 12/02/17 10:00 12/04/17 11:01 Protonix - PO 40 mg DAILY [facility] Administration Potassium Citrate/Citric Acid 20 meq 12/02/17 10:00 12/04/17 11:02 Cytra-K - PO 20 meq DAILY [facility] Administration Warfarin Sodium 5 mg 12/01/17 18:00 12/01/17 17:56 Coumadin - PO Not Given DAILY@1800 [facility] Laboratory Tests 11/30/17 13:08 HIPOLITO M-Maximo Not observed LUCIA Screen Negative c-ANCA Pending Proteinase 3 (PR3) Pending p-ANCA Pending Atypical p-ANCA Pending Myeloperoxidase Ab Pending Double Strand DNA Ab <1 Glomerular Base Memb Ab 3 Hepatitis A Ab Total Negative Hep Bs Antigen Negative Hep Bs Antibody Non reactive Hep B Core Total Ab Negative HCV Quantitation Pending Impression 1. Azotemia 2. diarrhea 3. gout 4. ileus 5. pericardial effusion 6. DM 7. hematuria Plan - renal function is stable - follow renal workup - can see pt in office - avoid nsaids
--- NOTE | 2017-12-04 17:55 | PN ---
Teaching Attending Note Name of Resident: Tao Melendrez ATTENDING PHYSICIAN STATEMENT I saw and evaluated the patient. I reviewed the resident's note and discussed the case with the resident. I agree with the resident's findings and plan as documented. SUBJECTIVE: Patient is still having lower leg pain but better than before OBJECTIVE: Vital Signs Temperature 99.6 F 12/04/17 17:44 Pulse Rate 60 12/04/17 17:44 Respiratory Rate 20 12/04/17 17:44 Blood Pressure 151/71 12/04/17 17:44 O2 Sat by Pulse Oximetry (%) 98 12/04/17 09:00 GENERAL: The patient is awake, alert, and fully oriented, in no distress. HEAD: Normal with no signs of trauma. EYES: PERRL, extraocular movements intact, sclera anicteric, conjunctiva clear. ENT: Oropharynx clear without exudates, moist mucous membranes. NECK: Trachea midline, full range of motion, supple. LUNGS: Breath sounds equal, clear to auscultation bilaterally, no wheezes, no accessory muscle use. HEART: Regular rate and rhythm, S1, S2 without murmur, rub or gallop appreciated. ABDOMEN: Obese abdomen. non distended. Soft, nontender to palpation, normoactive bowel sounds, no guarding, no rebound. EXTREMITIES: positive for pulses B/L. Warm to touch. 1 plus edema bl NEUROLOGICAL: Cranial nerves II through XII grossly intact. Normal speech. PSYCH: Appropriate mood and affect upon my exam today. SKIN: Warm. chronic venous stasis changes. WBC 13.3 K/mm3 (4.0-10.0) H 12/04/17 06:30 RBC 3.60 M/mm3 (4.00-5.60) L 12/04/17 06:30 Hgb 10.7 GM/dL (11.7-16.9) L 12/04/17 06:30 Hct 32.5 % (35.4-49) L 12/04/17 06:30 MCV 90.3 fl (80-96) 12/04/17 06:30 MCHC 33.0 g/dl (32.0-35.9) 12/04/17 06:30 RDW 16.5 % (11.9-15.9) H 12/04/17 06:30 Plt Count 299 K/MM3 (134-434) 12/04/17 06:30 MPV 8.6 fl (7.5-11.1) 12/04/17 06:30 CMP Sodium 141 mmol/L (136-145) 12/04/17 06:30 Potassium 4.0 mmol/L (3.5-5.1) 12/04/17 06:30 Chloride 102 mmol/L (98-107) 12/04/17 06:30 Carbon Dioxide 28 mmol/L (21-32) 12/04/17 06:30 Anion Gap 11 MMOL/L (8-16) 12/04/17 06:30 BUN 19 mg/dL (7-18) H 12/04/17 06:30 Creatinine 1.0 mg/dL (0.55-1.3) 12/04/17 06:30 Creat Clearance w eGFR > 60 (>60) 12/04/17 06:30 Random Glucose 108 mg/dL (74-106) H 12/04/17 06:30 Calcium 8.1 mg/dL (8.5-10.1) L 12/04/17 06:30 Total Bilirubin 1.4 mg/dL (0.2-1.0) H 12/04/17 06:30 AST 20 U/L (15-37) 12/04/17 06:30 ALT 24 U/L (13-61) 12/04/17 06:30 Alkaline Phosphatase 120 U/L (45-117) H 12/04/17 06:30 Total Protein 5.5 g/dl (6.4-8.2) L 12/04/17 06:30 Albumin 2.7 g/dl (3.4-5.0) L 12/04/17 06:30 CARDIAC ENZYMES Creatine Kinase 280 IU/L (39-308) 11/27/17 22:10 Troponin I 0.10 ng/ml (0.00-0.05) H 11/28/17 07:08 Current Medications Generic Name Dose Route Start Last Admin Trade Name Freq PRN Reason Stop Dose Admin Acetaminophen 650 mg 12/03/17 10:12 12/03/17 10:23 Tylenol - PO 650 mg Q6H PRN Administration PAIN LEVEL 4 - 6 Atorvastatin Calcium 20 mg 12/01/17 22:00 12/03/17 21:10 Lipitor - PO 20 mg HS [facility] Administration Colchicine 0.6 mg 12/04/17 10:00 12/04/17 11:01 Colcrys - PO 0.6 mg BID [facility] Administration Insulin Aspart 1 vial 12/02/17 07:00 12/04/17 12:44 Novolog Vial Sliding Scale - SQ Not Given TIDAC [facility] Protocol Ondansetron HCl 4 mg 12/01/17 16:19 12/04/17 07:29 Zofran - PO 4 mg Q6H PRN Administration NAUSEA Pantoprazole Sodium 40 mg 12/02/17 10:00 12/04/17 11:01 Protonix - PO 40 mg DAILY [facility] Administration Potassium Citrate/Citric Acid 20 meq 12/02/17 10:00 12/04/17 11:02 Cytra-K - PO 20 meq DAILY [facility] Administration Warfarin Sodium 5 mg 12/01/17 18:00 12/01/17 17:56 Coumadin - PO Not Given DAILY@1800 [facility] Home Medications Medication Instructions Recorded Colchicine 0.6 mg PO BID PRN 11/28/17 Furosemide 40 mg PO DAILY 11/28/17 Methylprednisolone [Medrol Dose See Taper PO DAILY 11/28/17 Morgan] Olmesartan/Hydrochlorothiazide 1 each PO DAILY 11/28/17 [Olmesartan-Hctz 40-25 mg Tab] Oxycodone HCl 10 mg PO QID 11/28/17 Simvastatin 40 mg PO DAILY 11/28/17 Warfarin Na [Coumadin] 10 mg PO DAILY 11/28/17 metFORMIN HCL [Metformin HCl] 500 mg PO DAILY 11/28/17 US of abdomen: positive for gallstones, fatty liver positive ASSESSMENT AND PLAN: 72 y/o man with h/o DM , A fib, HTN, HLP, s/p PPM , chronic back pain, gout, brain mass s/p resection,who presented with b/l feet pain. # ELevated LFTs trending down and able to tolerate diet. feels less nauseas ,no vomiting. GI consult appreciated. Further w/u if needed. # A fib:on Coumadin will give 2.5mg coumdain today since inr is 5.36--> 4.35-- 3.0 today , will recheck in am # Polyarticular gout imrpoved ,completed steroid . continue colchicine kidney function improved , No Nsaids as well # Leukocytosis improving , most likely due to steroids . cxray and UA are not suggestive of infection. No antibiotic for now , since no source of infection is noted. follow urine and blood cx. # ROSARIO : improved , likely due to diuretics , improved off Losartan, kidneys appear unremarkable on US # Trop leak: most likely due to demand ischemia, EKG with TWI in anteroseptal and lateral leads. no old EKG to compare to. No CP . # DM, HTN: continue home meds. DVTpx : on coumadin cecilio give 2.5mg today possible dc in am.
[2017-12-04] MEDS ORDERED: WARFARIN NA 2.5 MG TABLET (FP) PO ONE (18:02)
[2017-12-04] MEDS: ATORVASTATIN CA 20 MG TABLET (FP) PO SCH (21:14)
[2017-12-05 00:12] LABS: ATYPICAL pANCA <1:20 titer (Neg:<1:20); C-ANCA <1:20 titer (Neg:<1:20); P-ANCA <1:20 titer (Neg:<1:20)
[2017-12-05] MEDS ORDERED: INSULIN (NOVOLOG) ASPART 100 UNITS/ML 10ML VIAL ONE (05:42)
[2017-12-05] MEDS ORDERED: INSULIN (LEVEMIR) 100 UNITS/ML UNITS SQ ONE (05:43)
[2017-12-05] MEDS: INSULIN SLIDING SCALE (NOVOLOG) 1 VIAL SQ SCH ×3 (07:26→17:18)
[2017-12-05 07:52] LABS: HEMATOCRIT 32.7 % (35.4-49); HEMOGLOBIN 10.7 GM/dL (11.7-16.9); MCH 29.7 pg (25.7-33.7); MCHC 32.7 g/dl (32.0-35.9); MEAN CELL VOLUME 90.6 fl (80-96); MEAN PLT VOLUME 8.7 fl (7.5-11.1); PLATELET COUNT 295 K/MM3 (134-434); RDW 16.7 % (11.9-15.9); WHITE BLOOD COUNT 13.5 K/mm3 (4.0-10.0)
[2017-12-05 08:14] LABS: CHLORIDE 101 mmol/L (98-107); POTASSIUM 4.1 mmol/L (3.5-5.1); SODIUM 137 mmol/L (136-145)
[2017-12-05 08:25] LABS: INR 1.99 (0.83-1.09); PROTHROMBIN TIME (PATIENT) 22.5 SEC (9.7-13.0)
[2017-12-05 08:33] LABS: ALBUMIN 2.6 g/dl (3.4-5.0); ALK PHOS 147 U/L (45-117); ANION GAP 7 MMOL/L (8-16); BILIRUBIN,TOTAL 1.4 mg/dL (0.2-1); BLOOD UREA NITROGEN 21 mg/dL (7-18); CALCIUM 8.1 mg/dL (8.5-10.1); CO2 29 mmol/L (21-32); GLUCOSE,RANDOM 110 mg/dL (74-106); SGOT/AST 23 U/L (15-37); SGPT/ALT 24 U/L (13-61); TOT PROT 5.6 g/dl (6.4-8.2)
--- NOTE | 2017-12-05 08:33 | PN ---
Teaching Attending Note Name of Resident: Tao Melendrez ATTENDING PHYSICIAN STATEMENT I saw and evaluated the patient. I reviewed the resident's note and discussed the case with the resident. I agree with the resident's findings and plan as documented. SUBJECTIVE: Patient is c/o lower extremity weakness,unable to ambulate. OBJECTIVE: Vital Signs Temperature 98.4 F 12/05/17 06:00 Pulse Rate 81 12/05/17 06:00 Respiratory Rate 20 12/05/17 06:00 Blood Pressure 158/78 12/05/17 06:00 O2 Sat by Pulse Oximetry (%) 98 12/04/17 21:00 GENERAL: The patient is awake, alert, and fully oriented, in no distress. HEAD: Normal with no signs of trauma. EYES: PERRL, extraocular movements intact, sclera anicteric, conjunctiva clear. ENT: Oropharynx clear without exudates, moist mucous membranes. NECK: Trachea midline, full range of motion, supple. LUNGS: Breath sounds equal, clear to auscultation bilaterally, no wheezes, no accessory muscle use. HEART: Regular rate and rhythm, S1, S2 without murmur, rub or gallop appreciated. ABDOMEN: Obese abdomen. non distended. Soft, nontender to palpation, normoactive bowel sounds, no guarding, no rebound. EXTREMITIES: positive for pulses B/L. Warm to touch. 1 plus edema b/L NEUROLOGICAL: Cranial nerves II through XII grossly intact. Normal speech. PSYCH: Appropriate mood and affect upon my exam today. SKIN: Warm. chronic venous stasis changes. CBCD WBC 13.5 K/mm3 (4.0-10.0) H 12/05/17 07:00 RBC 3.60 M/mm3 (4.00-5.60) L 12/05/17 07:00 Hgb 10.7 GM/dL (11.7-16.9) L 12/05/17 07:00 Hct 32.7 % (35.4-49) L 12/05/17 07:00 MCV 90.6 fl (80-96) 12/05/17 07:00 MCHC 32.7 g/dl (32.0-35.9) 12/05/17 07:00 RDW 16.7 % (11.9-15.9) H 12/05/17 07:00 Plt Count 295 K/MM3 (134-434) 12/05/17 07:00 MPV 8.7 fl (7.5-11.1) 12/05/17 07:00 CMP Sodium 141 mmol/L (136-145) 12/04/17 06:30 Potassium 4.0 mmol/L (3.5-5.1) 12/04/17 06:30 Chloride 102 mmol/L (98-107) 12/04/17 06:30 Carbon Dioxide 28 mmol/L (21-32) 12/04/17 06:30 Anion Gap 11 MMOL/L (8-16) 12/04/17 06:30 BUN 19 mg/dL (7-18) H 12/04/17 06:30 Creatinine 1.0 mg/dL (0.55-1.3) 12/04/17 06:30 Creat Clearance w eGFR > 60 (>60) 12/04/17 06:30 Random Glucose 108 mg/dL (74-106) H 12/04/17 06:30 Calcium 8.1 mg/dL (8.5-10.1) L 12/04/17 06:30 Total Bilirubin 1.4 mg/dL (0.2-1.0) H 12/04/17 06:30 AST 20 U/L (15-37) 12/04/17 06:30 ALT 24 U/L (13-61) 12/04/17 06:30 Alkaline Phosphatase 120 U/L (45-117) H 12/04/17 06:30 Total Protein 5.5 g/dl (6.4-8.2) L 12/04/17 06:30 Albumin 2.7 g/dl (3.4-5.0) L 12/04/17 06:30 CARDIAC ENZYMES Creatine Kinase 280 IU/L (39-308) 11/27/17 22:10 Troponin I 0.10 ng/ml (0.00-0.05) H 11/28/17 07:08 Current Medications Generic Name Dose Route Start Last Admin Trade Name Freq PRN Reason Stop Dose Admin Acetaminophen 650 mg 12/03/17 10:12 12/03/17 10:23 Tylenol - PO 650 mg Q6H PRN Administration PAIN LEVEL 4 - 6 Atorvastatin Calcium 20 mg 12/01/17 22:00 12/04/17 21:14 Lipitor - PO 20 mg HS [facility] Administration Colchicine 0.6 mg 12/04/17 10:00 12/04/17 21:14 Colcrys - PO 0.6 mg BID [facility] Administration Insulin Aspart 1 vial 12/02/17 07:00 12/05/17 07:26 Novolog Vial Sliding Scale - SQ Not Given TIDAC [facility] Protocol Ondansetron HCl 4 mg 12/01/17 16:19 12/04/17 21:14 Zofran - PO 4 mg Q6H PRN Administration NAUSEA Pantoprazole Sodium 40 mg 12/02/17 10:00 12/04/17 11:01 Protonix - PO 40 mg DAILY [facility] Administration Potassium Citrate/Citric Acid 20 meq 12/02/17 10:00 12/04/17 11:02 Cytra-K - PO 20 meq DAILY [facility] Administration Warfarin Sodium 5 mg 12/01/17 18:00 12/01/17 17:56 Coumadin - PO Not Given DAILY@1800 [facility] Home Medications Medication Instructions Recorded Colchicine 0.6 mg PO BID PRN 11/28/17 Furosemide 40 mg PO DAILY 11/28/17 Methylprednisolone [Medrol Dose See Taper PO DAILY 11/28/17 Morgan] Olmesartan/Hydrochlorothiazide 1 each PO DAILY 11/28/17 [Olmesartan-Hctz 40-25 mg Tab] Oxycodone HCl 10 mg PO QID 11/28/17 Simvastatin 40 mg PO DAILY 11/28/17 Warfarin Na [Coumadin] 10 mg PO DAILY 11/28/17 metFORMIN HCL [Metformin HCl] 500 mg PO DAILY 11/28/17 US of abdomen: positive for gallstones, fatty liver positive ASSESSMENT AND PLAN: 72 y/o man with h/o DM , A fib, HTN, HLP, s/p PPM , chronic back pain, gout, brain mass s/p resection,who presented with b/l feet pain. # A fib:on Coumadin will give 5mg tonight 5mg coumadin today since inr is 5.36-- > 4.35--3.0--1.99 today , will recheck in am # ELevated LFTs improved , patient is able to tolerate diet. nauseas ,no vomiting. GI consult appreciated. Further w/u if needed. # Polyarticular gout improved ,completed steroid , will restart Prednisone 30mg x2 , 20mg x2 and 10mg x2 .continue colchicine kidney function improved. # Leukocytosis improving , most likely due to steroids . No signs of any infection. No antibiotic for needed for now. # ROSARIO : improved , likely due to diuretics , improved off Losartan, kidneys appear unremarkable on US # Trop leak: most likely due to demand ischemia, EKG with TWI in anteroseptal and lateral leads. no old EKG to compare to. No CP . # DM, HTN: continue home meds. DVTpx : on coumadin 5mg daily, daily PT/INR dc to rehab. since unable to ambulate
[2017-12-05] MEDS ORDERED: PT OWN MED DRAWER 7, Y5N ONE (09:09)
[2017-12-05] MEDS: POTASSIUM CITRATE/CITRIC ACID 2 MEQ/ML ML PO SCH ×2 (09:41→10:59)
[2017-12-05] MEDS: COLCHICINE 0.6 MG TABLET (FP) PO SCH ×4 (09:41→21:15)
[2017-12-05] MEDS: PANTOPRAZOLE 40 MG TABLET (FP) PO SCH (09:41)
[2017-12-05] MEDS ORDERED: oxyCODONE HCL 5 MG TABLET PO PRN (10:16)
[2017-12-05] MEDS ORDERED: ACETAMINOPHEN 325 MG TABLET (FP) PO PRN (10:17)
[2017-12-05] MEDS: ACETAMINOPHEN 325 MG TABLET (FP) PO PRN (10:50)
--- NOTE | 2017-12-05 11:51 | PN ---
Physical Exam: SUBJECTIVE: Patient seen and examined at bedside today. Admits improvement in leg pain B/L although admits still B/L leg swelling. Admits semisolid bowel movement overnight without melena or hematochezia. States nausea and dry heaving is also diminishing in frequency and intensity. Denies fevers, chills, shortness of breath, chest pain, palpitations, abdominal pain, vomiting, diarrhea. OBJECTIVE: Vital Signs Period Temp Pulse Resp BP Sys/Luke Pulse Ox Last 24 Hr 98.4 F-99.6 F 60-96 20-20 136-158/68-78 98 GENERAL: The patient is awake, alert, and fully oriented, in mild distress. HEAD: Normal with no signs of trauma. EYES: PERRL, extraocular movements intact, sclera anicteric, conjunctiva clear. ENT: Oropharynx clear without exudates, moist mucous membranes. NECK: Trachea midline, full range of motion, supple. LUNGS: Breath sounds equal, clear to auscultation bilaterally, no wheezes, no accessory muscle use. HEART: Regular rate and rhythm, S1, S2 without murmur, rub or gallop appreciated. ABDOMEN: Obese abdomen. Distended. Soft, nontender to palpation, normoactive bowel sounds, no guarding, no rebound. EXTREMITIES: 1+ DP pulses B/L. 2+ radial pulses B/L. Warm to touch. Tender to deeper palpation. Pain to palpation of B/L knees at joint line. NEUROLOGICAL: Cranial nerves II through XII grossly intact. Normal speech. Upper extremity strength 4/5 B/L in flexion extension, abduction, adduction. Hip flexion, extension 4/5 B/L. Knee flexion and extension 4/5 B/L. Dorsiflexion and Plantarflexion 4/5 B/L. Lower extremity strength limited by pain B/L. PSYCH: Appropriate mood and affect upon my exam today. SKIN: Warm. Discoloration (hyperpigmentation) in B/L lower extremities at level of medial/ lateral malleolus extending superiorly 5-6 inches B/L. Laboratory Results - last 24 hr 11/30/17 12/04/17 12/05/17 13:08 12:32 05:36 WBC RBC Hgb Hct MCV MCH MCHC RDW Plt Count MPV PT with INR INR PTT (Actin FS) Sodium Potassium Chloride Carbon Dioxide Anion Gap BUN Creatinine Creat Clearance w eGFR POC Glucometer 150 115 Random Glucose Calcium Total Bilirubin AST ALT Alkaline Phosphatase Total Protein Albumin c-ANCA <1:20 Proteinase 3 (PR3) <3.5 p-ANCA <1:20 Atypical p-ANCA <1:20 Myeloperoxidase Ab <9.0 Glomerular Base Memb Ab 3 HCV Quantitation Hcv not detected 12/05/17 12/05/17 12/05/17 07:00 07:00 07:00 WBC 13.5 H RBC 3.60 L Hgb 10.7 L Hct 32.7 L MCV 90.6 MCH 29.7 MCHC 32.7 RDW 16.7 H Plt Count 295 MPV 8.7 PT with INR 22.50 H INR 1.99 H PTT (Actin FS) 34.4 Sodium Potassium Chloride Carbon Dioxide Anion Gap BUN Creatinine Creat Clearance w eGFR POC Glucometer Random Glucose Calcium Total Bilirubin AST ALT Alkaline Phosphatase Total Protein Albumin c-ANCA Proteinase 3 (PR3) p-ANCA Atypical p-ANCA Myeloperoxidase Ab Glomerular Base Memb Ab HCV Quantitation 12/05/17 07:00 WBC RBC Hgb Hct MCV MCH MCHC RDW Plt Count MPV PT with INR INR PTT (Actin FS) Sodium 137 Potassium 4.1 Chloride 101 Carbon Dioxide 29 Anion Gap 7 L BUN 21 H Creatinine 1.0 Creat Clearance w eGFR > 60 POC Glucometer Random Glucose 110 H Calcium 8.1 L Total Bilirubin 1.4 H AST 23 ALT 24 Alkaline Phosphatase 147 H Total Protein 5.6 L Albumin 2.6 L c-ANCA Proteinase 3 (PR3) p-ANCA Atypical p-ANCA Myeloperoxidase Ab Glomerular Base Memb Ab HCV Quantitation Active Medications Generic Name Dose Route Start Last Admin Trade Name Freq PRN Reason Stop Dose Admin Acetaminophen 650 mg 12/03/17 10:12 12/05/17 10:50 Tylenol - PO 650 mg Q6H PRN Administration PAIN LEVEL 4 - 6 Acetaminophen 325 mg 12/05/17 10:17 Tylenol - PO Q4H PRN PAIN LEVEL 4 - 6 Atorvastatin Calcium 20 mg 12/01/17 22:00 12/04/17 21:14 Lipitor - PO 20 mg HS [facility] Administration Colchicine 0.6 mg 12/04/17 10:00 12/05/17 10:58 Colcrys - PO 0.6 mg BID [facility] Administration Insulin Aspart 1 vial 12/02/17 07:00 12/05/17 07:26 Novolog Vial Sliding Scale - SQ Not Given TIDAC [facility] Protocol Ondansetron HCl 4 mg 12/01/17 16:19 12/04/17 21:14 Zofran - PO 4 mg Q6H PRN Administration NAUSEA Oxycodone HCl 5 mg 12/05/17 10:16 12/05/17 10:51 Roxicodone - PO 5 mg Q4H PRN Administration PAIN LEVEL 6-10 Pantoprazole Sodium 40 mg 12/02/17 10:00 12/05/17 09:41 Protonix - PO 40 mg DAILY [facility] Administration Potassium Citrate/Citric Acid 20 meq 12/02/17 10:00 12/05/17 10:59 Cytra-K - PO Not Given DAILY [facility] Warfarin Sodium 5 mg 12/01/17 18:00 12/01/17 17:56 Coumadin - PO Not Given DAILY@1800 [facility] IMAGING: CT abdomen/ pelvis showed: hepatic steatosis, small pericardial effusion, cholelithiasis without evidence cholecystitis. Cardiac ECHO: severe dilation left atrium and right atrium, with atrial septal aneurysmal. Severe MR, moderate to severe TR. LVEF is normal. No pericardial effusion noted. ASSESSMENT/PLAN: Patient is a 72 year old male with history of Gout, DM, HLD, Afib on Coumadin presents with complaint of B/L lower extremity pain. Admitted for cellulitis vs gout flare up. Gout flare-up -Patient has history of gout, recently run out of Colchicine. No fluctuance or erythema of the joints appreciated that could suggest cellulitis. -Patient completed three days of Prednisone. -Reinstate Predispose taper. 30mg PO Prednisone tonight. -Potassium citrate 20meq PO daily -Reinstate colchicine 0.6mg PO BID -Pain control with Acetaminophen 650mg PO Q6H pain 1-5 -Pain control with Oxycodone 5mg PO Q4H for pain 6-10 -TAMI bandages wrap B/L legs -F/U PT consult -As per discussion with ID, will advise patient of importance to follow up with [facility]. GI consult requested. ROSARIO -Improving. Creatinine 1.0 today. Baseline Cr at 1.2 as per BMP from Dr. Looc. -Nephrology consult (Dr. Gabriel) appreciated: IVNS discontinued. FeNa was 0.1% indicating prerenal etiology, likely secondary to the diarrhea. -Bladder US shows no intrinsic bladder abnormalities, without significant post void residual volume. -Hepatitis A/B/C serology- Negative Nausea -Patient nauseous, and dry heaving. Not able to tolerate his breakfast this morning. -GI consult (Dr. Romero) appreciated: Will begin Omeprazole 40mg QD, and D/C cholestyramine. Lipase ordered. Surgical consult placed. -Surgical consult (Dr. Bejarano) appreciated. Leukocytosis -May be due to steroids given for the patient's ?gout. However unlikely d/t cellulitis as there is no erythema of inflammation. -C.diff cultures- negative for C.diff -Stool cultures- negative for growth. -Blood cultures- negative for growth after 5 days -Urine cultures- negative for growth. -ID consult (Dr. Galvez) appreciated. Troponinemia -Trended down 0.15 -> 0.12 -> 0.10 -EKG showed: Afib with ocassional ventricular paced complexes, RBBB, left posterior fascicular block. T wave abnormality seen in anterior-septal leads. -Likely due to patient's acute renal failure. -Cardiac ECHO noted no pericardial effusion -Cardiac consult (Dr. Huang) appreciated: Afib rate controlled without medication. Will d/c telemetry. Cardiac ECHO similar to prior study in 2017. Afib -Coumadin 5 mg PO QD -Will follow INR. HTN -Hold Olmesartan-HCTZ 40-25. HLD -Atorvastatin 20mg PO HS DM -Hold Metformin 500mg PO QD -ISS -BGM FEN -No IV fluids. Encourage judicious oral hydration. -Will follow CMP -Diabetic diet Prophylaxis -Warfarin 5mg PO QD -Pantoprazole 40mg PO QD Disposition -Continue care in medical-surgical floor. Visit type - Emergency Visit Emergency Visit: Yes ED Registration Date: 11/27/17 Care time: The patient presented to the Emergency Department on the above date and was hospitalized for further evaluation of their emergent condition. - New Patient This patient is new to me today: No - Critical Care Critical Care patient: No - Discharge Referral Referred to [facility] Med [facility].C[facility] No
[2017-12-05] MEDS ORDERED: predniSONE 10 MG TABLET (UD) PO SCH (14:00)
[2017-12-05] MEDS: predniSONE 10 MG TABLET (UD) PO SCH (16:01)
--- NOTE | 2017-12-05 16:45 | PN ---
Progress Note (short form) - Note Progress Note: s: complains of bilateral foot pain from gout. no chest pain, palps, dizzy, lightheadedness, edema. nausea better. o: Vital Signs Period Temp Pulse Resp BP Sys/Luke Pulse Ox Last 24 Hr 98.2 F-99.6 F 60-96 16-20 115-158/53-78 98-98 nad no jvd irreg,s1s2 no mrg cta bl nl eff aaox3 no le e/c/c abd nontender, +bs, nd no jaundice diaphoresis Current Medications Generic Name Dose Route Start Last Admin Trade Name Freq PRN Reason Stop Dose Admin Acetaminophen 650 mg 12/03/17 10:12 12/05/17 10:50 Tylenol - PO 650 mg Q6H PRN Administration PAIN LEVEL 4 - 6 Acetaminophen 325 mg 12/05/17 10:17 Tylenol - PO Q4H PRN PAIN LEVEL 4 - 6 Atorvastatin Calcium 20 mg 12/01/17 22:00 12/04/17 21:14 Lipitor - PO 20 mg HS [facility] Administration Colchicine 0.6 mg 12/04/17 10:00 12/05/17 10:58 Colcrys - PO 0.6 mg BID [facility] Administration Insulin Aspart 1 vial 12/02/17 07:00 12/05/17 12:42 Novolog Vial Sliding Scale - SQ Not Given TIDAC [facility] Protocol Ondansetron HCl 4 mg 12/01/17 16:19 12/04/17 21:14 Zofran - PO 4 mg Q6H PRN Administration NAUSEA Oxycodone HCl 5 mg 12/05/17 10:16 12/05/17 10:51 Roxicodone - PO 5 mg Q4H PRN Administration PAIN LEVEL 6-10 Pantoprazole Sodium 40 mg 12/02/17 10:00 12/05/17 09:41 Protonix - PO 40 mg DAILY [facility] Administration Potassium Citrate/Citric Acid 20 meq 12/02/17 10:00 12/05/17 10:59 Cytra-K - PO Not Given DAILY [facility] Prednisone 30 mg 12/05/17 14:45 12/05/17 16:01 Deltasone - PO 12/06/17 10:01 30 mg DAILY [facility] Administration Prednisone 20 mg 12/07/17 10:00 Deltasone - PO 12/08/17 10:01 DAILY [facility] Prednisone 10 mg 12/09/17 10:00 Deltasone - PO 12/10/17 10:01 DAILY [facility] Warfarin Sodium 5 mg 12/01/17 18:00 12/01/17 17:56 Coumadin - PO Not Given DAILY@1800 [facility] CBC, BMP 12/05/17 07:00 12/05/17 07:00 ecg: afib, rbbb, occ svp research and strategic analysis echo 03/2016: nl lv/rv, maninder, mild-mod mr, mod tr, rvsp 41 echo 11/2017: mild lve, nl lvef, rv tds, maninder, iasa, sev mr, mod-sev tr, nl rvsp- ->on my review, mod mr, mild tr mibi 03/2016: no ischemia, nl lvef cxr: clear lungs a/p: 72 m hx afib, htn, hld, dm, ppm (due to afib with slow VR, biotronik, 2017 here with n/v/d. Nausea - GI following, resolved, PRN zofran, taking PO Gout - manage per primary team, planned for SNF afib with slow vr s/p ppm: -on coumadin, goal INR 2-3, managing per primary team -echo stable from 03/2016 -rate controlled off meds -ppm done for slow VR,routine office checks htn: -cont home meds hld: -cont statin le edema /venous insuff: -holding lasix due to steph, resolved now. prn lasix for le edema. cardiac josue remains stable
--- NOTE | 2017-12-05 16:54 | PN ---
Progress Note, Physician History of Present Illness: Pt seen and examined at bedside. He is awake and alert. He is tolerating diet. - Current Medication List Current Medications: Active Medications Acetaminophen (Tylenol -) 650 mg PO Q6H PRN PRN Reason: PAIN LEVEL 4 - 6 Last Admin: 12/05/17 10:50 Dose: 650 mg Acetaminophen (Tylenol -) 325 mg PO Q4H PRN PRN Reason: PAIN LEVEL 4 - 6 Atorvastatin Calcium (Lipitor -) 20 mg PO HS [facility] Last Admin: 12/04/17 21:14 Dose: 20 mg Colchicine (Colcrys -) 0.6 mg PO BID [facility] Last Admin: 12/05/17 10:58 Dose: 0.6 mg Insulin Aspart (Novolog Vial Sliding Scale -) 1 vial SQ TIDAC [facility]; Protocol Last Admin: 12/05/17 12:42 Dose: Not Given Ondansetron HCl (Zofran -) 4 mg PO Q6H PRN PRN Reason: NAUSEA Last Admin: 12/04/17 21:14 Dose: 4 mg Oxycodone HCl (Roxicodone -) 5 mg PO Q4H PRN PRN Reason: PAIN LEVEL 6-10 Last Admin: 12/05/17 10:51 Dose: 5 mg Pantoprazole Sodium (Protonix -) 40 mg PO DAILY [facility] Last Admin: 12/05/17 09:41 Dose: 40 mg Potassium Citrate/Citric Acid (Cytra-K -) 20 meq PO DAILY [facility] Last Admin: 12/05/17 10:59 Dose: Not Given Prednisone (Deltasone -) 30 mg PO DAILY [facility] Stop: 12/06/17 10:01 Last Admin: 12/05/17 16:01 Dose: 30 mg Prednisone (Deltasone -) 20 mg PO DAILY [facility] Stop: 12/08/17 10:01 Prednisone (Deltasone -) 10 mg PO DAILY [facility] Stop: 12/10/17 10:01 Warfarin Sodium (Coumadin -) 5 mg PO DAILY@1800 [facility] Last Admin: 12/01/17 17:56 Dose: Not Given - Objective Vital Signs: Vital Signs Temperature 98.2 F 12/05/17 10:00 Pulse Rate 68 12/05/17 14:52 Respiratory Rate 18 12/05/17 14:52 Blood Pressure 115/53 12/05/17 14:52 O2 Sat by Pulse Oximetry (%) 98 09/18/18 09:00 Constitutional: Yes: Calm Eyes: Yes: Conjunctiva Clear HENT: Yes: Atraumatic Cardiovascular: Yes: S1, S2 Respiratory: Yes: CTA Bilaterally Gastrointestinal: Yes: Normal Bowel Sounds, Soft, Abdomen, Obese Genitourinary: Yes: WNL Musculoskeletal: Yes: WNL Edema: LLE: Trace, RLE: Trace Neurological: Yes: Oriented Psychiatric: Yes: Oriented Labs: CBC, BMP 12/05/17 07:00 12/05/17 07:00 INR, PTT INR 1.99 (0.83-1.09) H 12/05/17 07:00 Problem List - Problems (1) Azotemia Code(s): R79.89 - OTHER SPECIFIED ABNORMAL FINDINGS OF BLOOD CHEMISTRY (2) Sepsis Code(s): A41.9 - SEPSIS, UNSPECIFIED ORGANISM Qualifiers: Sepsis type: sepsis due to unspecified organism Qualified Code(s): A41.9 - Sepsis, unspecified organism Assessment/Plan Current Medications Generic Name Dose Route Start Last Admin Trade Name Freq PRN Reason Stop Dose Admin Acetaminophen 650 mg 12/03/17 10:12 12/05/17 10:50 Tylenol - PO 650 mg Q6H PRN Administration PAIN LEVEL 4 - 6 Acetaminophen 325 mg 12/05/17 10:17 Tylenol - PO Q4H PRN PAIN LEVEL 4 - 6 Atorvastatin Calcium 20 mg 12/01/17 22:00 12/04/17 21:14 Lipitor - PO 20 mg HS [facility] Administration Colchicine 0.6 mg 12/04/17 10:00 12/05/17 10:58 Colcrys - PO 0.6 mg BID [facility] Administration Insulin Aspart 1 vial 12/02/17 07:00 12/05/17 12:42 Novolog Vial Sliding Scale - SQ Not Given TIDAC [facility] Protocol Ondansetron HCl 4 mg 12/01/17 16:19 12/04/17 21:14 Zofran - PO 4 mg Q6H PRN Administration NAUSEA Oxycodone HCl 5 mg 12/05/17 10:16 12/05/17 10:51 Roxicodone - PO 5 mg Q4H PRN Administration PAIN LEVEL 6-10 Pantoprazole Sodium 40 mg 12/02/17 10:00 12/05/17 09:41 Protonix - PO 40 mg DAILY [facility] Administration Potassium Citrate/Citric Acid 20 meq 12/02/17 10:00 12/05/17 10:59 Cytra-K - PO Not Given DAILY [facility] Prednisone 30 mg 12/05/17 14:45 12/05/17 16:01 Deltasone - PO 12/06/17 10:01 30 mg DAILY [facility] Administration Prednisone 20 mg 12/07/17 10:00 Deltasone - PO 12/08/17 10:01 DAILY [facility] Prednisone 10 mg 12/09/17 10:00 Deltasone - PO 12/10/17 10:01 DAILY [facility] Warfarin Sodium 5 mg 12/01/17 18:00 12/01/17 17:56 Coumadin - PO Not Given DAILY@1800 [facility] Laboratory Tests 11/30/17 13:08 HIPOLITO M-Maximo Not observed LUCIA Screen Negative c-ANCA <1:20 Proteinase 3 (PR3) <3.5 p-ANCA <1:20 Atypical p-ANCA <1:20 Myeloperoxidase Ab <9.0 Double Strand DNA Ab <1 Glomerular Base Memb Ab 3 Impression 1. Azotemia 2. diarrhea 3. gout 4. ileus 5. pericardial effusion 6. DM 7. hematuria Plan - renal function remains stable - workup negative to date - can resume lasix as needed - taper steroids - avoid nsaids
[2017-12-05] MEDS ORDERED: FUROSEMIDE 20 MG TABLET (FP) PO ONE (17:15)
[2017-12-05] MEDS: WARFARIN NA 5 MG TABLET (UD) PO SCH (17:30)
[2017-12-05] MEDS: ATORVASTATIN CA 20 MG TABLET (FP) PO SCH (21:15)
[2017-12-06] MEDS: ONDANSETRON 4 MG TABLET PO PRN (04:39)
[2017-12-06] MEDS: ACETAMINOPHEN 325 MG TABLET (FP) PO PRN (06:00)
[2017-12-06] MEDS ORDERED: INSULIN (NOVOLOG) ASPART 100 UNITS/ML 10ML VIAL ONE (06:02)
[2017-12-06] MEDS: INSULIN SLIDING SCALE (NOVOLOG) 1 VIAL SQ SCH ×3 (06:03→17:22)
[2017-12-06] MEDS ORDERED: METOCLOPRAMIDE HCL INJECTION 10 MG/2 ML VIAL IVPUSH ONE (06:16)
[2017-12-06 07:11] LABS: HEMATOCRIT 34.9 % (35.4-49); HEMOGLOBIN 11.6 GM/dL (11.7-16.9); MCH 29.7 pg (25.7-33.7); MCHC 33.2 g/dl (32.0-35.9); MEAN CELL VOLUME 89.5 fl (80-96); MEAN PLT VOLUME 8.6 fl (7.5-11.1); PLATELET COUNT 339 K/MM3 (134-434); RDW 16.4 % (11.9-15.9)
[2017-12-06 07:22] LABS: INR 1.99 (0.83-1.09); PROTHROMBIN TIME (PATIENT) 22.5 SEC (9.7-13.0)
[2017-12-06 07:41] LABS: ALBUMIN 2.8 g/dl (3.4-5.0); ANION GAP 8 MMOL/L (8-16); BLOOD UREA NITROGEN 24 mg/dL (7-18); CALCIUM 8.2 mg/dL (8.5-10.1); CHLORIDE 99 mmol/L (98-107); CO2 29 mmol/L (21-32); GLUCOSE,RANDOM 150 mg/dL (74-106); POTASSIUM 4.6 mmol/L (3.5-5.1); SODIUM 136 mmol/L (136-145)
[2017-12-06 07:47] LABS: ALK PHOS 166 U/L (45-117); BILIRUBIN,TOTAL 1.3 mg/dL (0.2-1); CREATININE 1.2 mg/dL (0.55-1.3); SGOT/AST 22 U/L (15-37); SGPT/ALT 26 U/L (13-61); TOT PROT 6.2 g/dl (6.4-8.2)
--- NOTE | 2017-12-06 09:44 | PN ---
Progress Note (short form) - Note Progress Note: s: no chest pain, palps, dizzy, lightheadedness, edema. foot pain improving o: Vital Signs Period Temp Pulse Resp BP Sys/Luke Pulse Ox Last 24 Hr 98 F-98.6 F 60-77 16-20 115-159/53-85 98 nad no jvd irreg,s1s2 no mrg cta bl nl eff aaox3 no le e/c/c abd nontender, +bs, nd no jaundice diaphoresis Current Medications Acetaminophen (Tylenol -) 650 mg PO Q6H PRN PRN Reason: PAIN LEVEL 4 - 6 Last Admin: 12/06/17 06:00 Dose: 650 mg Acetaminophen (Tylenol -) 325 mg PO Q4H PRN PRN Reason: PAIN LEVEL 4 - 6 Atorvastatin Calcium (Lipitor -) 20 mg PO HS [facility] Last Admin: 12/05/17 21:15 Dose: 20 mg Colchicine (Colcrys -) 0.6 mg PO BID [facility] Last Admin: 12/05/17 21:15 Dose: 0.6 mg Insulin Aspart (Novolog Vial Sliding Scale -) 1 vial SQ TIDAC [facility]; Protocol Last Admin: 12/06/17 06:03 Dose: 2 units Ondansetron HCl (Zofran -) 4 mg PO Q6H PRN PRN Reason: NAUSEA Last Admin: 12/06/17 04:39 Dose: 4 mg Oxycodone HCl (Roxicodone -) 5 mg PO Q4H PRN PRN Reason: PAIN LEVEL 6-10 Last Admin: 12/05/17 10:51 Dose: 5 mg Pantoprazole Sodium (Protonix -) 40 mg PO DAILY [facility] Last Admin: 12/05/17 09:41 Dose: 40 mg Potassium Citrate/Citric Acid (Cytra-K -) 20 meq PO DAILY [facility] Last Admin: 12/05/17 10:59 Dose: Not Given Prednisone (Deltasone -) 30 mg PO DAILY [facility] Stop: 12/06/17 10:01 Last Admin: 12/05/17 16:01 Dose: 30 mg Prednisone (Deltasone -) 20 mg PO DAILY [facility] Stop: 12/08/17 10:01 Prednisone (Deltasone -) 10 mg PO DAILY [facility] Stop: 12/10/17 10:01 Warfarin Sodium (Coumadin -) 5 mg PO DAILY@1800 [facility] Last Admin: 12/05/17 17:30 Dose: 5 mg ecg: afib, rbbb, 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 Nausea - GI following, resolved, PRN zofran, taking PO Gout - manage per primary team, planned for SNF - pain improving afib with slow vr s/p ppm: -on coumadin, goal INR 2-3, managing per primary team -echo stable from 03/2016 -rate controlled off meds -ppm done for slow VR,routine office checks htn: -cont home meds hld: -cont statin le edema /venous insuff: -holding lasix due to steph, resolved now. prn lasix for le edema. cardiac josue remains stable
[2017-12-06] MEDS ORDERED: PT OWN MED DRAWER 7, Y5N ONE (09:56)
--- NOTE | 2017-12-06 09:58 | PN ---
Physical Exam: SUBJECTIVE: Patient seen and examined at bedside this morning. Admits to nausea , and dry heaving overnight which required zofran. Admits RLQ abdominal pain associated with gas and flatulence, slight mucus vomitus that was clear, non bloody, non billious. Endorses improvement in B/L lower extremity pain, and improvement of active range of potion. Denies fevers, chills, shortness of breath, chest pain, palpitations. OBJECTIVE: Vital Signs Period Temp Pulse Resp BP Sys/Luke Pulse Ox Last 24 Hr 98 F-98.6 F 60-77 16-20 115-159/53-85 98 GENERAL: The patient is awake, alert, and fully oriented, in mild distress. HEAD: Normal with no signs of trauma. EYES: PERRL, extraocular movements intact, sclera anicteric, conjunctiva clear. ENT: Oropharynx clear without exudates, moist mucous membranes. NECK: Trachea midline, full range of motion, supple. LUNGS: Breath sounds equal, clear to auscultation bilaterally, no wheezes, no accessory muscle use. HEART: Regular rate and rhythm, S1, S2 without murmur, rub or gallop appreciated. ABDOMEN: Obese abdomen. Distended. Soft, Tender to palpation at RLQ today. Normoactive bowel sounds, no guarding, no rebound. EXTREMITIES: 1+ DP pulses B/L. 2+ radial pulses B/L. Warm to touch. Tender to deeper palpation. Pain to palpation of B/L knees at joint line. NEUROLOGICAL: Cranial nerves II through XII grossly intact. Normal speech. Upper extremity strength 4/5 B/L in flexion extension, abduction, adduction. Hip flexion, extension 4/5 B/L. Knee flexion and extension 4/5 B/L. Dorsiflexion and Plantarflexion 4/5 B/L. Lower extremity strength limited by pain B/L. PSYCH: Appropriate mood and affect upon my exam today. SKIN: Warm. Discoloration (hyperpigmentation) in B/L lower extremities at level of medial/ lateral malleolus extending superiorly 5-6 inches B/L. Laboratory Results - last 24 hr 12/05/17 12/05/17 12/05/17 12:23 17:14 21:13 WBC RBC Hgb Hct MCV MCH MCHC RDW Plt Count MPV PT with INR INR Sodium Potassium Chloride Carbon Dioxide Anion Gap BUN Creatinine Creat Clearance w eGFR POC Glucometer 151 123 190 Random Glucose Calcium Total Bilirubin AST ALT Alkaline Phosphatase Total Protein Albumin 12/06/17 12/06/17 12/06/17 05:58 06:30 06:30 WBC 15.0 H RBC 3.90 L Hgb 11.6 L Hct 34.9 L MCV 89.5 MCH 29.7 MCHC 33.2 RDW 16.4 H Plt Count 339 MPV 8.6 PT with INR 22.50 H INR 1.99 H Sodium Potassium Chloride Carbon Dioxide Anion Gap BUN Creatinine Creat Clearance w eGFR POC Glucometer 157 Random Glucose Calcium Total Bilirubin AST ALT Alkaline Phosphatase Total Protein Albumin 12/06/17 06:30 WBC RBC Hgb Hct MCV MCH MCHC RDW Plt Count MPV PT with INR INR Sodium 136 Potassium 4.6 Chloride 99 Carbon Dioxide 29 Anion Gap 8 BUN 24 H Creatinine 1.2 Creat Clearance w eGFR 59.68 POC Glucometer Random Glucose 150 H Calcium 8.2 L Total Bilirubin 1.3 H AST 22 ALT 26 Alkaline Phosphatase 166 H Total Protein 6.2 L Albumin 2.8 L Active Medications Generic Name Dose Route Start Last Admin Trade Name Freq PRN Reason Stop Dose Admin Acetaminophen 650 mg 12/03/17 10:12 12/06/17 06:00 Tylenol - PO 650 mg Q6H PRN Administration PAIN LEVEL 4 - 6 Acetaminophen 325 mg 12/05/17 10:17 Tylenol - PO Q4H PRN PAIN LEVEL 4 - 6 Atorvastatin Calcium 20 mg 12/01/17 22:00 12/05/17 21:15 Lipitor - PO 20 mg HS CHINYERE Administration Colchicine 0.6 mg 12/04/17 10:00 12/05/17 21:15 Colcrys - PO 0.6 mg BID CHINYERE Administration Insulin Aspart 1 vial 12/02/17 07:00 12/06/17 06:03 Novolog Vial Sliding Scale - SQ 2 units TIDAC CH[facility]ERE Administration Protocol Ondansetron HCl 4 mg 12/01/17 16:19 12/06/17 04:39 Zofran - PO 4 mg Q6H PRN Administration NAUSEA Oxycodone HCl 5 mg 12/05/17 10:16 12/05/17 10:51 Roxicodone - PO 5 mg Q4H PRN Administration PAIN LEVEL 6-10 Pantoprazole Sodium 40 mg 12/02/17 10:00 12/05/17 09:41 Protonix - PO 40 mg DAILY CH[facility]YERE Administration Potassium Citrate/Citric Acid 20 meq 12/02/17 10:00 12/05/17 10:59 Cytra-K - PO Not Given DAILY CH[facility]ERE Prednisone 30 mg 12/05/17 14:45 12/05/17 16:01 Deltasone - PO 12/06/17 10:01 30 mg DAILY CH[facility]ERE Administration Prednisone 20 mg 12/07/17 10:00 Deltasone - PO 12/08/17 10:01 DAILY [facility]ERE Prednisone 10 mg 12/09/17 10:00 Deltasone - PO 12/10/17 10:01 DAILY CH[facility]ERE Warfarin Sodium 5 mg 12/01/17 18:00 12/05/17 17:30 Coumadin - PO 5 mg DAILY@1800 [facility] Administration IMAGING: CT abdomen/ pelvis showed: hepatic steatosis, small pericardial effusion, cholelithiasis without evidence cholecystitis. Cardiac ECHO: severe dilation left atrium and right atrium, with atrial septal aneurysmal. Severe MR, moderate to severe TR. LVEF is normal. No pericardial effusion noted. ASSESSMENT/PLAN: Patient is a 72 year old male with history of Gout, DM, HLD, Afib on Coumadin presents with complaint of B/L lower extremity pain. Admitted for likely gout flare up. Gout flare-up -Patient has history of gout, recently run out of Colchicine. No fluctuance or erythema of the joints appreciated that could suggest cellulitis. -Patient completed three days of Prednisone. -Reinstate Predispose taper. 20mg PO Prednisone tonight (day 2/3) . -Potassium citrate 20meq PO daily -Reinstate colchicine 0.6mg PO BID -Pain control with Acetaminophen 650mg PO Q6H pain 1-5 -Pain control with Oxycodone 5mg PO Q4H for pain 6-10 -TAMI bandages wrap B/L legs -F/U PT consult -As per discussion with ID, will advise patient of importance to follow up with [facility] [employer] outpatient. ROSARIO -Improving. Creatinine 1.0 today. Baseline Cr at 1.2 as per BMP from Dr. Loco. -Nephrology consult (Dr. Gabriel) appreciated: IVNS discontinued. Lasix 20mg IV given today. FeNa was 0.1% indicating prerenal etiology, likely secondary to the diarrhea. -Bladder US shows no intrinsic bladder abnormalities, without significant post void residual volume. -Hepatitis A/B/C serology- Negative Nausea -Patient nauseous, and dry heaving. Not able to tolerate his breakfast this morning. -GI consult (Dr. Romeor) appreciated. -Omeprazole 40mg QD -Zofran 4mg PO Q6H PRN for nausea -Surgical consult (Dr. Bejarano) appreciated. Leukocytosis -May be due to steroids given for the patient's ?gout. However unlikely d/t cellulitis as there is no erythema of inflammation. -C.diff cultures- negative for C.diff -Stool cultures- negative for growth. -Blood cultures- negative for growth after 5 days -Urine cultures- negative for growth. -ID consult (Dr. Galvez) appreciated. Troponinemia -Trended down 0.15 -> 0.12 -> 0.10 -EKG showed: Afib with ocassional ventricular paced complexes, RBBB, left posterior fascicular block. T wave abnormality seen in anterior-septal leads. -Likely due to patient's acute renal failure. -Cardiac ECHO noted no pericardial effusion -Cardiac consult (Dr. Huang) appreciated: Afib rate controlled without medication. Cardiac ECHO similar to prior study in 2017. Afib -Coumadin 5 mg PO QD -Will follow INR. HTN -Hold Olmesartan-HCTZ 40-25. HLD -Atorvastatin 20mg PO HS DM -Hold Metformin 500mg PO QD -ISS -BGM FEN -No IV fluids. Encourage judicious oral hydration. -Will follow CMP -Diabetic diet Prophylaxis -Warfarin 5mg PO QD -Pantoprazole 40mg PO QD Disposition -Continue care in medical-surgical floor.
[2017-12-06] MEDS: predniSONE 10 MG TABLET (UD) PO SCH (10:01)
[2017-12-06] MEDS: COLCHICINE 0.6 MG TABLET (FP) PO SCH (10:01)
[2017-12-06] MEDS: PANTOPRAZOLE 40 MG TABLET (FP) PO SCH (10:02)
[2017-12-06] MEDS: POTASSIUM CITRATE/CITRIC ACID 2 MEQ/ML ML PO SCH (10:02)
--- NOTE | 2017-12-06 12:18 | PN ---
Progress Note, Physician History of Present Illness: Pt seen and examined at bedside. He tolerated the dose of lasix. He complains of edema. - Current Medication List Current Medications: Active Medications Acetaminophen (Tylenol -) 650 mg PO Q6H PRN PRN Reason: PAIN LEVEL 4 - 6 Last Admin: 12/06/17 06:00 Dose: 650 mg Acetaminophen (Tylenol -) 325 mg PO Q4H PRN PRN Reason: PAIN LEVEL 4 - 6 Atorvastatin Calcium (Lipitor -) 20 mg PO HS [facility] Last Admin: 12/05/17 21:15 Dose: 20 mg Colchicine (Colcrys -) 0.6 mg PO BID [facility] Last Admin: 12/06/17 10:01 Dose: 0.6 mg Insulin Aspart (Novolog Vial Sliding Scale -) 1 vial SQ TIDAC [facility]; Protocol Last Admin: 12/06/17 06:03 Dose: 2 units Ondansetron HCl (Zofran -) 4 mg PO Q6H PRN PRN Reason: NAUSEA Last Admin: 12/06/17 04:39 Dose: 4 mg Oxycodone HCl (Roxicodone -) 5 mg PO Q4H PRN PRN Reason: PAIN LEVEL 6-10 Last Admin: 12/05/17 10:51 Dose: 5 mg Pantoprazole Sodium (Protonix -) 40 mg PO DAILY [facility] Last Admin: 12/06/17 10:02 Dose: 40 mg Potassium Citrate/Citric Acid (Cytra-K -) 20 meq PO DAILY [facility] Last Admin: 12/06/17 10:02 Dose: 20 meq Prednisone (Deltasone -) 20 mg PO DAILY [facility] Stop: 12/08/17 10:01 Prednisone (Deltasone -) 10 mg PO DAILY [facility] Stop: 12/10/17 10:01 Warfarin Sodium (Coumadin -) 5 mg PO DAILY@1800 [facility] Last Admin: 12/05/17 17:30 Dose: 5 mg - Objective Vital Signs: Vital Signs Temperature 98 F 12/06/17 06:41 Pulse Rate 64 12/06/17 06:41 Respiratory Rate 20 12/06/17 06:41 Blood Pressure 159/85 12/06/17 06:41 O2 Sat by Pulse Oximetry (%) 98 12/05/17 21:00 Constitutional: Yes: Calm Eyes: Yes: Conjunctiva Clear HENT: Yes: Atraumatic Cardiovascular: Yes: S1, S2 Respiratory: Yes: CTA Bilaterally Gastrointestinal: Yes: Soft, Abdomen, Obese Genitourinary: Yes: WNL Musculoskeletal: Yes: WNL Edema: Yes Edema: LLE: Trace, RLE: Trace Neurological: Yes: Oriented Psychiatric: Yes: Oriented Labs: CBC, BMP 12/06/17 06:30 12/06/17 06:30 INR, PTT INR 1.99 (0.83-1.09) H 12/06/17 06:30 Problem List - Problems (1) Azotemia Code(s): R79.89 - OTHER SPECIFIED ABNORMAL FINDINGS OF BLOOD CHEMISTRY (2) Sepsis Code(s): A41.9 - SEPSIS, UNSPECIFIED ORGANISM Qualifiers: Sepsis type: sepsis due to unspecified organism Qualified Code(s): A41.9 - Sepsis, unspecified organism Assessment/Plan Current Medications Generic Name Dose Route Start Last Admin Trade Name Freq PRN Reason Stop Dose Admin Acetaminophen 650 mg 12/03/17 10:12 12/06/17 06:00 Tylenol - PO 650 mg Q6H PRN Administration PAIN LEVEL 4 - 6 Acetaminophen 325 mg 12/05/17 10:17 Tylenol - PO Q4H PRN PAIN LEVEL 4 - 6 Atorvastatin Calcium 20 mg 12/01/17 22:00 12/05/17 21:15 Lipitor - PO 20 mg HS [facility] Administration Colchicine 0.6 mg 12/04/17 10:00 12/06/17 10:01 Colcrys - PO 0.6 mg BID [facility] Administration Insulin Aspart 1 vial 12/02/17 07:00 12/06/17 06:03 Novolog Vial Sliding Scale - SQ 2 units TIDAC [facility] Administration Protocol Ondansetron HCl 4 mg 12/01/17 16:19 12/06/17 04:39 Zofran - PO 4 mg Q6H PRN Administration NAUSEA Oxycodone HCl 5 mg 12/05/17 10:16 12/05/17 10:51 Roxicodone - PO 5 mg Q4H PRN Administration PAIN LEVEL 6-10 Pantoprazole Sodium 40 mg 12/02/17 10:00 12/06/17 10:02 Protonix - PO 40 mg DAILY [facility]ERE Administration Potassium Citrate/Citric Acid 20 meq 12/02/17 10:00 12/06/17 10:02 Cytra-K - PO 20 meq DAILY [facility] Administration Prednisone 20 mg 12/07/17 10:00 Deltasone - PO 12/08/17 10:01 DAILY [facility] Prednisone 10 mg 12/09/17 10:00 Deltasone - PO 12/10/17 10:01 DAILY [facility] Warfarin Sodium 5 mg 12/01/17 18:00 12/05/17 17:30 Coumadin - PO 5 mg DAILY@1800 [facility] Administration Impression 1. Azotemia 2. diarrhea 3. gout 4. ileus 5. pericardial effusion 6. DM 7. hematuria Plan - will give another dose of lasix - urology eval for hematuria - serologies were negative - taper steroids - avoid nsaids
[2017-12-06] MEDS ORDERED: FUROSEMIDE 20 MG TABLET (FP) PO ONE (12:30)
[2017-12-06 15:05] LABS: URINE APPEARANCE SLCLOUDY; URINE BILIRUBIN NEGATIVE (<2.0 mg/dL); URINE COLOR YELLOW; URINE GLUCOSE (UA) NEGATIVE (NEGATIVE); URINE KETONE NEGATIVE (NEGATIVE); URINE LEUK ESTERASE NEGATIVE (NEGATIVE); URINE NITRITE NEGATIVE (NEGATIVE); URINE UROBILINOGEN NEGATIVE mg/dL (0.2-1.0)
[2017-12-06 15:07] LABS: URINE PROTEIN 1+ (NEGATIVE)
[2017-12-06 15:10] LABS: URINE BACTERIA RARE /hpf (NONE SEEN); URINE HYALINE CAST 1 /lpf; URINE MUCUS RARE
--- NOTE | 2017-12-06 15:57 | PN ---
Teaching Attending Note Name of Resident: Tao Melendrez ATTENDING PHYSICIAN STATEMENT I saw and evaluated the patient. I reviewed the resident's note and discussed the case with the resident. I agree with the resident's findings and plan as documented. SUBJECTIVE: no fever or chills . No SOB , painin feet has improved , and was able to walk. OBJECTIVE: NAD, Awake , alert CV: RRR, no MRG lungs: CATB Ext: 1+ edema on LE , discoloration . no tenderness or erythema . ASSESSMENT AND PLAN: 72 y/o man with h/o DM , A fib, HTN, HLP, s/p PPM , chronic back pain, gout, brain mass s/p resection, and other medical problems who presented with b/l feet pain. 1- Polyarticular gout: worsened after dc steroids and improved after resuming prednisone yesterday - will cont a short taper - will cont colchicine - will probably benefit form allopurinol as out patient - f/u with rheum - dc HCTZ at dc 2-Hematuria: UA obtained. CT of abd/p on admission with no renal masses. US of bladder reviewed. no evidence of glomerulonephritis . will need cystoscopy as out pt . f/u with uro. family prefers to do so as out pt 3- ROSARIO: due to volume depletion. resolved - cont lower dose of lasix at home - resume olmesartan at dc 4- DM : resume metformin as out pt 5- HTN: resume olmesartan , dc HCTZ 6- h/o A fib , with supretherapeutic iNR on admission: cont with 5 mg of coumadin INR in 2 days dc home
--- NOTE | 2017-12-06 17:12 | DS ---
Physical Exam: SUBJECTIVE: Patient seen and examined at bedside this morning. Admits improvement in nausea, and dry heaving overnight with zofran. Admits RLQ abdominal pain associated with gas and flatulence, slight mucus vomitus that was clear, non bloody, non billious. Endorses improvement in B/L lower extremity pain, and improvement of active range of potion. Denies fevers, chills , shortness of breath, chest pain, palpitations. OBJECTIVE: Vital Signs Period Temp Pulse Resp BP Sys/Luke Pulse Ox Last 24 Hr 97.8 F-98.6 F 60-65 18-20 141-159/70-85 98-99 PHYSICAL EXAM GENERAL: The patient is awake, alert, and fully oriented, in mild distress. HEAD: Normal with no signs of trauma. EYES: PERRL, extraocular movements intact, sclera anicteric, conjunctiva clear. ENT: Oropharynx clear without exudates, moist mucous membranes. NECK: Trachea midline, full range of motion, supple. LUNGS: Breath sounds equal, clear to auscultation bilaterally, no wheezes, no accessory muscle use. HEART: Regular rate and rhythm, S1, S2 without murmur, rub or gallop appreciated. ABDOMEN: Obese abdomen. Distended. Soft, Tender to palpation at RLQ today. Normoactive bowel sounds, no guarding, no rebound. EXTREMITIES: 1+ DP pulses B/L. 2+ radial pulses B/L. Warm to touch. Tender to deeper palpation. Pain to palpation of B/L knees at joint line. NEUROLOGICAL: Cranial nerves II through XII grossly intact. Normal speech. Upper extremity strength 4/5 B/L in flexion extension, abduction, adduction. Hip flexion, extension 4/5 B/L. Knee flexion and extension 4/5 B/L. Dorsiflexion and Plantarflexion 4/5 B/L. Lower extremity strength limited by pain B/L. PSYCH: Appropriate mood and affect upon my exam today. SKIN: Warm. Discoloration (hyperpigmentation) in B/L lower extremities at level of medial/ lateral malleolus extending superiorly 5-6 inches B/L. LABS Laboratory Results - last 24 hr 12/05/17 12/05/17 12/06/17 17:14 21:13 05:58 WBC RBC Hgb Hct MCV MCH MCHC RDW Plt Count MPV PT with INR INR Sodium Potassium Chloride Carbon Dioxide Anion Gap BUN Creatinine Creat Clearance w eGFR POC Glucometer 123 190 157 Random Glucose Calcium Total Bilirubin AST ALT Alkaline Phosphatase Total Protein Albumin Urine Color Urine Appearance Urine pH Ur Specific [place] Urine Protein Urine Glucose (UA) Urine Ketones Urine Blood Urine Nitrite Urine Bilirubin Urine Urobilinogen Ur Leukocyte Esterase Urine WBC (Auto) Urine RBC (Auto) Urine Bacteria Hyaline Casts Urine Mucus 12/06/17 12/06/17 12/06/17 06:30 06:30 06:30 WBC 15.0 H RBC 3.90 L Hgb 11.6 L Hct 34.9 L MCV 89.5 MCH 29.7 MCHC 33.2 RDW 16.4 H Plt Count 339 MPV 8.6 PT with INR 22.50 H INR 1.99 H Sodium 136 Potassium 4.6 Chloride 99 Carbon Dioxide 29 Anion Gap 8 BUN 24 H Creatinine 1.2 Creat Clearance w eGFR 59.68 POC Glucometer Random Glucose 150 H Calcium 8.2 L Total Bilirubin 1.3 H AST 22 ALT 26 Alkaline Phosphatase 166 H Total Protein 6.2 L Albumin 2.8 L Urine Color Urine Appearance Urine pH Ur Specific [place] Urine Protein Urine Glucose (UA) Urine Ketones Urine Blood Urine Nitrite Urine Bilirubin Urine Urobilinogen Ur Leukocyte Esterase Urine WBC (Auto) Urine RBC (Auto) Urine Bacteria Hyaline Casts Urine Mucus 12/06/17 12/06/17 12:22 14:16 WBC RBC Hgb Hct MCV MCH MCHC RDW Plt Count MPV PT with INR INR Sodium Potassium Chloride Carbon Dioxide Anion Gap BUN Creatinine Creat Clearance w eGFR POC Glucometer 154 Random Glucose Calcium Total Bilirubin AST ALT Alkaline Phosphatase Total Protein Albumin Urine Color Yellow Urine Appearance Slcloudy Urine pH 5.0 Ur Specific [place] 1.012 Urine Protein 1+ H Urine Glucose (UA) Negative Urine Ketones Negative Urine Blood 3+ H Urine Nitrite Negative Urine Bilirubin Negative Urine Urobilinogen Negative Ur Leukocyte Esterase Negative Urine WBC (Auto) 18 Urine RBC (Auto) 283 Urine Bacteria Rare Hyaline Casts 1 Urine Mucus Rare HOSPITAL COURSE: Date of Admission:11/27/17 Date of Discharge: 12/06/17 Patient is a 72 year old male with history of Gout, DM, HLD, Afib on Coumadin presents with complaint of B/L lower extremity pain. Admitted for likely gout flare up. CT abdomen/ pelvis showed hepatic steatosis, small pericardial effusion, cholelithiasis without evidence cholecystitis. Cardiac ECHO showed severe dilation left atrium and right atrium, with atrial septal aneurysmal. Severe MR, moderate to severe TR. LVEF is normal. No pericardial effusion noted. Upon admission, he had troponinemia of 0.15 that trended down. EKG showed Afib with ocassional ventricular paced complexes, RBBB, left posterior fascicular block. T wave abnormality seen in anterior-septal leads that was consistent with prior ECG obtained from primary care physician. Cardiac consult discussed his Afib rate controlled without medication. Cardiac ECHO similar to prior study in 2017. He was admitted for gout flare-up of b/l lower extremities. He had run out of colchicine one week prior to admission, and had completed five Medrol packs within the past year due to frequent gout exacerbations. He was started on threee day taper of steroids and his leg pain and swelling significantly improved. He complained of dry heaving with clear mucus vomit, and mucus stools. GI consult discussed initiating Omeprazole, Zofran, and a surgical consult. Surgical consult discussed that his abdomen was not acute or surgical. He had hematuria noted on UA and was instructed to follow up as outpatient with urolorgist. He was not treated with NSAIDs or colchicine initially due to ROSARIO with Cr of 1.6 (baseline around 1.2 from primary care physician). HCTZ was discontinued from his regimen. Lasix was lowered to 20mg daily. He was given IV fluids, and slowly tolerated oral intake. Cr trended down, and colchicine was reinstated. Patient also required additional Prednisone, and was discharged with 4 more day taper of steroids, Coumadin 5mg (to follow with Dr. Loco within 2 days for Pt/ INR), Zofran 4mg (5 tablets), Colchicine 0.6 BID, Simvastatin 40mg, Metformin 500mg. He was discharged to follow up with primary care physician, steam clothes press operator, and urologist (for cystoscopy) within one week of discharge. He was given prescription for rolling walker and bariatric roller with seat. Minutes to complete discharge: 40 Discharge Summary Reason For Visit: SEPSIS Current Active Problems Acute gout (Acute) Altered bowel habits (Acute) Diarrhea (Acute) Foot pain, bilateral (Acute) Leukocytosis (Acute) Nausea (Acute) Sepsis (Acute) History of atrial fibrillation (Chronic) On warfarin at home (Chronic) Condition: Improved - Instructions Diet, Activity, Other Instructions: You were admitted for swelling and pain in your legs likely due to your gout. You were treated with steroids. We are discontinuing your home blood pressure medication: olmesartan- hydrochlorothiazide. Instead you will take Olmesartan 40mg daily. We are changing the dose of your Lasix. You will stop taking 40mg. Take only 20mg daily after today's discharge. Continue taking your Coumadin now at 5mg daily. Do not take the 10mg coumadin at this time. It is important that you follow up with your primary care physician Dr. Loco within 2 days of discharge to check your INR level at that time. You will continue taking Prednisone 20 mg for the next two days (December 07) and Prednisone 10mg (December 09). We will prescribe Zofran for nausea 4mg every 8 hours as needed. We will prescribe 5 tablets. We are giving you referral to see steam clothes press operator Dr. Templeton for your frequent gout flare-ups. Please follow up with him within the next week to continue your gout management. We noticed some blood in the urine studies, and are referring you to follow up with a Urologist Dr. Gomes within one week after discharge. You may need a cystoscopy at that appointment to look into the bladder to identify the source of the blood. You will continue taking your Colchicine 0.6mg twice a day Continue taking Simvastatin 40 mg daily Continue taking Metformin 500mg daily Please return to the nearest Emergency Department if you experience any chest pain, palpitations, dizziness, loss of consciousness, or worsening pain in your lower extremities. Referrals: Emigdio Loco MD [Primary Care Provider] - 1 Week Anival Templeton MD [Staff Physician] - 1 Week Ashok Gomes MD [Staff Physician] - 1 Week Disposition: HOME - Home Medications Comprehensive Discharge Medication List: Ambulatory Orders Colchicine 0.6 mg PO BID PRN 11/28/17 Simvastatin 40 mg PO DAILY 11/28/17 metFORMIN HCL [Metformin HCl] 500 mg PO DAILY 11/28/17 Furosemide [Lasix] 20 mg PO DAILY 30 Days #30 tablet 12/06/17 Miscellaneous Medical Supply [Outpatient Order] 1 each ASDIR #1 misc Miscellaneous Medical Supply [Outpatient Order] 1 each ASDIR #1 misc Miscellaneous Medical Supply [Outpatient Order] 1 each ASDIR #1 mis Miscellaneous Medical Supply [Outpatient Order] 1 each ASDIR #1 [facility] Olmesartan Medoxomil [Benicar (Nf)] 40 mg PO DAILY 30 Days #30 tablet 12/06/17 Warfarin Na [Coumadin -] 5 mg PO DAILY 30 Days #30 tab 12/06/17 This patient is new to me today: No Emergency Visit: Yes ED Registration Date: 11/27/17 Care time: The patient presented to the Emergency Department on the above date and was hospitalized for further evaluation of their emergent condition. Critical Care patient: No - Discharge Referral Referred to [facility] Yes Physician Referral: Emigdio Loco MD (Int Med)
[2017-12-06 17:13] VITALS: BP 154/96; PULSE 67; TEMP 98.6
[2017-12-06] MEDS: WARFARIN NA 5 MG TABLET (UD) PO SCH (17:21)
[2017-12-07] MEDS ORDERED: predniSONE 20 MG TABLET (UD) PO SCH (10:00)
[2017-12-09] MEDS ORDERED: predniSONE 10 MG TABLET (UD) PO SCH (10:00)
== END 2017-12-06 18:15 | disposition home or self-care (01) | DRG 351 ==
LOC: JER 14:37 → JERBED 22:35 → J4W 11-28 16:21 → J8W 12-01 17:00
PROVIDERS: ADMIT Internal Medicine; ATTEND Internal Medicine
DX: M10.9 Gout, unspecified (principal); N17.9 Acute kidney failure, unspecified; I31.3 Pericardial effusion (noninflammatory); I24.8 Other forms of acute ischemic heart disease; K76.0 Fatty (change of) liver, not elsewhere classified; K56.7 Ileus, unspecified; E86.9 Volume depletion, unspecified; Z68.36 Body mass index [BMI] 36.0-36.9, adult; I10 Essential (primary) hypertension; E78.5 Hyperlipidemia, unspecified; E11.9 Type 2 diabetes mellitus without complications; E66.9 Obesity, unspecified; Z95.0 Presence of cardiac pacemaker; Z87.891 Personal history of nicotine dependence; Z79.01 Long term (current) use of anticoagulants; Z79.84 Long term (current) use of oral hypoglycemic drugs; D72.829 Elevated white blood cell count, unspecified; M54.9 Dorsalgia, unspecified; R19.7 Diarrhea, unspecified; R31.9 Hematuria, unspecified; K80.20 Calculus of gallbladder without cholecystitis without obstruction; I34.0 Nonrheumatic mitral (valve) insufficiency
CPT/HCPCS: 36415; 71045-TC-FY; 74176-TC; 76700-TC; 76856-TC; 80053; 81003; 81015; 82248; 82436; 82550; 82553; 82570; 82803; 82962; 83036; 83516; 83520; 83605; 83690; 83735; 84100; 84133; 84155; 84165; 84300; 84484; 84550; 85025; 85027; 85610; 85730; 86038; 86225; 86256; 86704; 86706; 86708; 87040; 87045; 87046; 87086; 87205; 87324; 87340; 87449; 87522; 90670; 93005; 93010; 93306-TC; 97116-GP; 97161-GP; 99285-25; J1644; J7030